=== PATIENT | female | born 1940 | race Caucasian/White ===

== ENCOUNTER → 2016-06-01 | Outpatient (CLI) | payer MEDICARE, OTHER ==
--- NOTE | 2016-06-06 09:21 | NM ---
EXAMINATION TYPE: NM DatScan Brain SPECT DATE OF EXAM: 06/01/2016 4:41 PM COMPARISON: Correlation CT 04/26/2016 HISTORY: 76-year-old female abnormal involuntary movements and tremors. TECHNIQUE: 10 drops of Lugol's solution was administered 1 hour prior to injection as a thyroid bloc sunil agent. After the administration of 3.98 mCi I-123 Ioflupane DaTscan. Images obtained 3 hours p ost injection. SPECT images of the brain were acquired with axial and coronal reconstructions. FINDINGS: The axial SPECT images demonstrate slight increase in background activity. Accounting for head tilt, there is a "weak comma"-shaped appearance to the striatum on the right. IMPRESSION: Some blunting of striatal activity on the right and slight increase in the background activity may in dicate early idiopathic Parkinson's disease or Parkinsonian syndrome.
== END | disposition home or self-care (01) ==
LOC: RADNMMAIN 11:42
PROVIDERS: ATTEND Psychiatry & Neurology Neurology
DX: R25.1 Tremor, unspecified (principal); R25.9 Unspecified abnormal involuntary movements
CPT/HCPCS: 78607; A9584

== ENCOUNTER 2016-06-05 08:53 | Emergency (ER) | payer MEDICARE, OTHER ==
[2016-06-05] MEDS ORDERED: HYDROcodone/APAP 5-325MG 1 EACH TAB PO STA (09:19)
--- NOTE | 2016-06-05 09:21 | ED ---
General Adult HPI - General Chief complaint: Extremity Injury, Lower Stated complaint: Left lowerr leg pain Time Seen by Provider: 06/05/16 09:11 Source: patient, EMS, RN notes reviewed Mode of arrival: EMS Limitations: physical limitation - History of Present Illness Initial comments: Patient 76-year-old female who presents emergency room today by EMS, the chief complaint of increased pain to left lower extremity. She does admit that she was in the grocery store yesterday began feeling some "sciatic pain". States it was very sharp intense. She states that this sciatic type pain has relieved but still expressing pain to the left lower extremity. She states feels it more anteriorly. States having a difficult time ambulating due to the pain today. States tried [id number] Tylenol with no relief of the symptoms. Patient denies any injury or trauma. She states that she feels it radiating up the left leg. Patient denies any recent fever, chills, shortness of breath, chest pain, back pain, abdominal pain, nausea or vomiting, numbness or tingling , dysuria or hematuria, constipation or diarrhea, headaches or visual changes, or any other complaints. - Related Data Home Medications Medication Instructions Recorded Confirmed FLUoxetine HCL [PROzac] 20 mg PO HS 07/08/15 06/05/16 FLUoxetine HCL [PROzac] 40 mg PO QAM 07/08/15 06/05/16 ALPRAZolam [Xanax] 0.5 mg PO BID PRN 02/23/16 06/05/16 Acetaminophen Tab [Tylenol Tab] 650 mg PO Q4H PRN 06/05/16 06/05/16 Previous Rx's Medication Instructions Recorded lamoTRIgine [LaMICtal] 150 mg PO BID 30 Days 05/03/14 Cyclobenzaprine [Flexeril] 1 tab PO TID #20 tablet 06/05/16 Hydrocodone/Acetaminophen [[place] 1 each PO Q6HR PRN #20 tab 06/05/16 5-325] Allergies Allergy/AdvReac Type Severity Reaction Status Date / Time No Known Allergies Allergy Verified 06/05/16 09:14 Review of Systems ROS Statement: Those systems with pertinent positive or pertinent negative responses have been documented in the HPI. ROS Other: All systems not noted in ROS Statement are negative. Past Medical History Past Medical History: GERD/Reflux, Osteoarthritis (OA), Renal Disease Additional Past Medical History / Comment(s): diverticulosis, Gait dysfunction- uses walker History of Any Multi-Drug Resistant Organisms: None Reported Past Surgical History: Bowel Resection, Hysterectomy, Orthopedic Surgery Additional Past Surgical History / Comment(s): left kidney removed as a teen, exploratory lap in past-unsure what for.Low anterior resection for diverticulosis Past Anesthesia/Blood Transfusion Reactions: No Reported Reaction Additional Past Anesthesia/Blood Transfusion Reaction / Comment(s): had worsening psych. issues after last surgery-thought might be from anesthesia Past Psychological History: Anxiety, Bipolar, Depression, Panic Disorder Additional Psychological History / Comment(s): Pt states her psychiatric symptoms have worsened since her surgery a few months ago. Smoking Status: Former smoker Past Alcohol Use History: None Reported Additional Past Alcohol Use History / Comment(s): SMOKED FOR 60 YRS, Past Drug Use History: None Reported - Past Family History Mother Family Medical History: Cancer General Exam - General Exam Comments Initial Comments: General: The patient is awake and alert, in no distress, and does not appear acutely ill. Neck: The neck is supple, there is no tenderness or JVD. Cardiovascular: There is a regular rate and rhythm. No murmur, rub or gallop is appreciated. Respiratory: Lungs are clear to auscultation, respirations are non-labored, breath sounds are equal. No wheezes, stridor, rales, or rhonchi. Musculoskeletal: Normal appearance of the left lower chin. No obvious swelling bruising. No deformities. Shows good range of motion. No bony tenderness to the left hip, left knee, left ankle. Patient has no tenderness on palpation. Her sensations are intact pulses equal bilaterally 2+. Neurological: A&O x 3. CN II-XII intact, There are no obvious motor or sensory deficits. Coordination appears grossly intact. Speech is normal. Skin: Skin is warm and dry and no rashes or lesions are noted. Psychiatric: Normal mood and affect. Limitations: physical limitation Course Vital Signs 06/05/16 06/05/16 08:58 09:44 Temperature 97.2 F L Pulse Rate 67 66 Respiratory 20 20 Rate Blood Pressure 193/84 171/82 O2 Sat by Pulse 98 98 Oximetry Medical Decision Making - Medical Decision Making Patient reexamined at this time shows no signs of distress. Doesn't that she is feeling better after medications given here in the emergency room. X-rays reviewed are unremarkable. Ultrasound negative for any evidence of DVT. 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 Results were discussed with the patient. Patient at this time feels comfortable being discharged home. Will be given pain medication along with a muscle relaxer to go home with. Advised that it may make her drowsy. Advised follow-up the family doctor later this week for further evaluation. Patient denies return if any symptoms increase or worsen. Disposition Clinical Impression: Lumbar radiculopathy, acute Disposition: HOME SELF-CARE Condition: Good Instructions: Lumbar Radiculopathy (ED) Additional Instructions: Please use medication as discussed. Please be aware that medications may make you drowsy. Please follow-up with family doctor in the next 2 days of symptoms have not improved. Please return to emergency room if the symptoms increase or worsen or for any other concerns. Prescriptions: Cyclobenzaprine [Flexeril] 1 tab PO TID #20 tablet Hydrocodone/Acetaminophen [[place] 5-325] 1 each PO Q6HR PRN #20 tab PRN Reason: Pain Time of Disposition: 13:09
[2016-06-05] MEDS ORDERED: MORPHINE SULFATE 4 MG/ML SYRINGE IM STA (10:27)
--- NOTE | 2016-06-05 11:24 | US ---
EXAMINATION TYPE: US venous doppler duplex LE LT DATE OF EXAM: 06/05/2016 10:52 AM COMPARISON: In pacs CLINICAL HISTORY: 76-year-old female Left leg pain x 2 days TECHNIQUE: Duplex Doppler ultrasound examination of the left lower extremity. FINDINGS: SIDE PERFORMED: Left VESSELS IMAGED: External Iliac Vein (EIV) Common Femoral Vein Deep Femoral Vein Greater Saphenous Vein * Femoral Vein Popliteal Vein Small Saphenous Vein * Proximal Calf Veins (* superficial vessels) Left Leg: Appears negative for DVT. There is a 5.0 x 2.1 x 4.1cm cystic area in the popliteal fossa medial to vessels: probable Martin's cyst. IMPRESSION: 1. No evidence for DVT in the left lower extremity imaged from the groin to the upper calf. 2. Moderate-sized, 5 cm Martin's cyst.
--- NOTE | 2016-06-05 11:45 | XR ---
EXAMINATION TYPE: XR lumbar spine 2 or 3V DATE OF EXAM: 06/05/2016 11:40 AM COMPARISON: 01/30/2015 HISTORY: 76-year-old female with left leg pain, several falls over the last 3 weeks. TECHNIQUE: 3 views FINDINGS: There is dextroconvex curvature of the lumbar spine. There is slight irregularity of an arcuate line along the left sacral alar. There is hypertrophic facet arthropathy mid to lower lumbar spine with a grade 1 anterolisthesis at L4-L5 and mild disc interspace narrowing in the lower lumbar spine at L4-L 5 and L5-S1. Vertebral body heights are preserved. Osteopenia. IMPRESSION: 1. Possible left sacral alar insufficiency fracture. Correlate with patient's symptoms. 2. No vertebral compression collapse. 3. Facet arthropathy mid to lower lumbar spine with similar grade 1 anterolisthesis at L4-L5. 4. Mild degenerative disc disease lower lumbar spine. 5. Dextroconvex curvature could be positional or secondary to muscle spasm.
[2016-06-05] MEDS ORDERED: DIAZEPAM 2 MG TAB PO STA (11:56)
[2016-06-05 13:20] VITALS: BP 167/84; PULSE 93; RESP 16; TEMP 97.8
== END 2016-06-05 13:18 | disposition home or self-care (01) ==
LOC: EC 08:53
DX: M54.16 Radiculopathy, lumbar region (principal); Z79.899 Other long term (current) drug therapy; F41.9 Anxiety disorder, unspecified; F31.9 Bipolar disorder, unspecified; F41.0 Panic disorder [episodic paroxysmal anxiety]; Z87.891 Personal history of nicotine dependence; M71.22 Synovial cyst of popliteal space [Baker], left knee
CPT/HCPCS: 72100; 93971; 96372; 99284; J2270

== ENCOUNTER 2016-06-07 17:14 | Emergency (ER) | payer MEDICARE, OTHER ==
[2016-06-07 17:30] VITALS: RESP 16; TEMP 97.7
[2016-06-07] MEDS ORDERED: LORazepam 2 MG/ML SYRINGE IV STA (17:47)
[2016-06-07] MEDS ORDERED: KETOROLAC 30 MG/ML 1 ML VIAL IVP STA ×2 (17:47→20:17)
--- NOTE | 2016-06-07 18:01 | ED ---
Extremity Problem HPI - General Chief complaint: Extremity Problem,Nontraumatic Stated complaint: left leg pain Time Seen by Provider: 06/07/16 17:35 Source: patient, RN notes reviewed, old records reviewed Mode of arrival: EMS Limitations: no limitations - History of Present Illness Initial comments: This is a 76-year-old female who presents with complaints of pain to her left leg radiate from her ankle up to her thigh. She states also restaurant to her back. She states she was seen here 2 days ago for the same her pain medication not helping. She denies any nausea vomiting fevers chills sweats dysuria hematuria or urinary or fecal incontinence. She does states she did fall twice last 2 weeks her last fall being about a week ago. She was thought to have sciatica/ lumbar radiculopathy when she was in here 2 days ago. Nothing has changed no new trauma is reported. MD Complaint: extremity pain - Related Data Home Medications Medication Instructions Recorded Confirmed FLUoxetine HCL [PROzac] 20 mg PO HS 07/08/15 06/07/16 FLUoxetine HCL [PROzac] 40 mg PO QAM 07/08/15 06/07/16 ALPRAZolam [Xanax] 0.5 mg PO BID PRN 02/23/16 06/07/16 Acetaminophen Tab [Tylenol Tab] 650 mg PO Q4H PRN 06/05/16 06/07/16 Hydrocodone/Acetaminophen [[place] 1 tab PO Q6HR PRN 06/07/16 06/07/16 5-325] Previous Rx's Medication Instructions Recorded lamoTRIgine [LaMICtal] 150 mg PO BID 30 Days 05/03/14 Cyclobenzaprine [Flexeril] 1 tab PO TID #20 tablet 06/05/16 Cephalexin [Keflex] 500 mg PO Q6HR #40 cap 06/07/16 predniSONE 20 mg PO BID #10 tab 06/07/16 Allergies Allergy/AdvReac Type Severity Reaction Status Date / Time No Known Allergies Allergy Verified 06/07/16 17:36 Review of Systems ROS Statement: Those systems with pertinent positive or pertinent negative responses have been documented in the HPI. ROS Other: All systems not noted in ROS Statement are negative. Past Medical History Past Medical History: GERD/Reflux, Osteoarthritis (OA), Renal Disease Additional Past Medical History / Comment(s): diverticulosis, Gait dysfunction- uses walker, rib fx. History of Any Multi-Drug Resistant Organisms: None Reported Past Surgical History: Bowel Resection, Hysterectomy, Orthopedic Surgery Additional Past Surgical History / Comment(s): left kidney removed as a teen, exploratory lap in past-unsure what for.Low anterior resection for diverticulosis Past Anesthesia/Blood Transfusion Reactions: No Reported Reaction Additional Past Anesthesia/Blood Transfusion Reaction / Comment(s): had worsening psych. issues after last surgery-thought might be from anesthesia Past Psychological History: Anxiety, Bipolar, Depression, Panic Disorder Additional Psychological History / Comment(s): Pt states her psychiatric symptoms have worsened since her surgery a few months ago. Smoking Status: Former smoker Past Alcohol Use History: None Reported Additional Past Alcohol Use History / Comment(s): SMOKED FOR 60 YRS, Past Drug Use History: None Reported - Past Family History Mother Family Medical History: Cancer General Exam - General Exam Comments Initial Comments: This is a well-developed well-nourished awake alert oriented 3 female Limitations: no limitations General appearance: alert, in no apparent distress Head exam: Present: atraumatic, normocephalic, normal inspection Eye exam: Present: normal appearance, PERRL, EOMI. Absent: scleral icterus, conjunctival injection, periorbital swelling ENT exam: Present: normal exam, mucous membranes moist Neck exam: Present: normal inspection. Absent: tenderness, meningismus, lymphadenopathy Respiratory exam: Present: normal lung sounds bilaterally. Absent: respiratory distress, wheezes, rales, rhonchi, stridor Cardiovascular Exam: Present: regular rate, normal rhythm, normal heart sounds. Absent: systolic murmur, diastolic murmur, rubs, gallop, clicks GI/Abdominal exam: Present: soft, normal bowel sounds. Absent: distended, tenderness, guarding, rebound, rigid Extremities exam: Present: normal inspection, full ROM, tenderness (Tennis palpation of the left gluteal fold and buttock over the sciatica leg.), normal capillary refill. Absent: pedal edema, joint swelling, calf tenderness Back exam: Present: normal inspection. Absent: tenderness, CVA tenderness (R), CVA tenderness (L), muscle spasm, paraspinal tenderness, vertebral tenderness Neurological exam: Present: alert, oriented X3, CN II-XII intact Psychiatric exam: Present: normal affect, normal mood Skin exam: Present: warm, dry, intact, normal color. Absent: rash Course Vital Signs 06/07/16 06/07/16 17:25 19:58 Temperature 97.7 F Pulse Rate 67 60 Respiratory 16 16 Rate Blood Pressure 143/61 136/63 O2 Sat by Pulse 96 97 Oximetry Medical Decision Making - Medical Decision Making Patient was reevaluated several occasions she got Dilaudid pain relief. She was given IV fluids IV antibiotics she would like to go home options were available she chose to go home she'll be discharged on oral antibiotics pain medication follow-up with her doctor return when necessary - Lab Data Result diagrams: 06/07/16 19:30 06/07/16 19:30 Lab Results 06/07/16 06/07/16 06/07/16 Range/Units 19:09 19:30 19:30 WBC 7.8 (3.8-10.6) k/uL RBC 4.63 (3.80-5.40) m/uL Hgb 13.0 (11.4-16.0) gm/dL Hct 40.7 (34.0-46.0) % MCV 87.9 (80.0-100.0) fL MCH 28.0 (25.0-35.0) pg MCHC 31.8 (31.0-37.0) g/dL RDW 17.2 H (11.5-15.5) % Plt Count 245 (150-450) k/uL Neutrophils % 77 % Lymphocytes % 14 % Monocytes % 6 % Eosinophils % 2 % Basophils % 0 % Neutrophils # 6.0 (1.3-7.7) k/uL Lymphocytes # 1.1 (1.0-4.8) k/uL Monocytes # 0.4 (0-1.0) k/uL Eosinophils # 0.2 (0-0.7) k/uL Basophils # 0.0 (0-0.2) k/uL Anisocytosis Slight Sodium 139 (137-145) mmol/L Potassium 4.1 (3.5-5.1) mmol/L Chloride 102 (98-107) mmol/L Carbon Dioxide 24 (22-30) mmol/L Anion Gap 13 mmol/L BUN 15 (7-17) mg/dL Creatinine 0.90 (0.52-1.04) mg/dL Est GFR (MDRD) Af Amer >60 (>60 ml/min/1.73 sqM) Est GFR (MDRD) Non-Af >60 (>60 ml/min/1.73 sqM) Glucose 104 H (74-99) mg/dL Calcium 9.4 (8.4-10.2) mg/dL Total Bilirubin 0.5 (0.2-1.3) mg/dL AST 46 H (14-36) U/L ALT 76 H (9-52) U/L Alkaline Phosphatase 138 H (38-126) U/L Total Protein 6.3 (6.3-8.2) g/dL Albumin 3.9 (3.5-5.0) g/dL Urine Color Yellow Urine Appearance Cloudy H (Clear) Urine pH 6.5 (5.0-8.0) Ur Specific [place] 1.010 (1.001-1.035) Urine Protein Negative (Negative) Urine Glucose (UA) Negative (Negative) Urine Ketones Negative (Negative) Urine Blood Trace H (Negative) Urine Nitrate Positive H (Negative) Urine Bilirubin Negative (Negative) Urine Urobilinogen <2.0 (<2.0) mg/dL Ur Leukocyte Esterase Large H (Negative) Urine RBC 38 H (0-5) /hpf Urine WBC >182 H (0-5) /hpf Urine WBC Clumps Many H (None) /hpf Ur Squamous Epith Cells 8 H (0-4) /hpf Amorphous Sediment Few H (None) /hpf Urine Bacteria Many H (None) /hpf Urine Mucus Few H (None) /hpf - Radiology Data Radiology results: report reviewed (Imaging was reviewed no acute findings are seen.), image reviewed Disposition Clinical Impression: Urinary tract infection, Lumbar radiculopathy, acute, Sciatica Disposition: HOME SELF-CARE Condition: Good Instructions: Urinary Tract Infection in Women (ED), Sciatica (ED), Lumbar Radiculopathy (ED) Prescriptions: Cephalexin [Keflex] 500 mg PO Q6HR #40 cap predniSONE 20 mg PO BID #10 tab
[2016-06-07 19:23] LABS: Amorphous Sediment,Urine Few /hpf; Appearance,Urine Cloudy (Clear); Bacteria,Urine Many /hpf; Bilirubin,Urine Negative (Negative); Glucose,Urine (UA) Negative (Negative); Ketones,Urine Negative (Negative); Leukocyte Esterase,Urine Large (Negative); Mucus,Urine Few /hpf; Nitrite,Urine Positive (Negative); PH, Urine 6.5 (5.0-8.0); Particle Count 31656; Protein,Urine Negative (Negative); RBC,Urine 38 /hpf (0-5); Squamous Epithelial Cell,Urine 8 /hpf (0-4); UA Billing (MACRO vs. MICRO) MICRO; Urobilinogen,Urine <2.0 mg/dL (<2.0); WBC,Urine >182 /hpf (0-5)
--- NOTE | 2016-06-07 19:35 | XR ---
EXAMINATION TYPE: XR lumbosacral spine min 4V DATE OF EXAM: 06/07/2016 7:21 PM COMPARISON: 06/05/2016 HISTORY: Low back pain TECHNIQUE: 5 views FINDINGS: Vertebrae are fairly normal alignment. There is a few millimeter anterior subluxation of L4 in relation L5. Posterior elements are intact. Sacroiliac joints appear normal. I see no compression fracture. IMPRESSION: There is a minimal degenerative first-degree L4-5 spondylolisthesis. No acute bony abnorm ality. No change compared to yesterday.
[2016-06-07 19:53] LABS: Anisocytosis Slight; Basophils % (A) 0 %; CH 28.3; CHCM 32.3; Eosinophils # (A) 0.2 k/uL (0-0.7); Eosinophils % (A) 2 %; HCT 40.7 % (34.0-46.0); HDW 2.41; Luc % (Auto) 1; Lymphocytes # (A) 1.1 k/uL (1.0-4.8); Lymphocytes % (A) 14 %; MCHC 31.8 g/dL (31.0-37.0); MCV 87.9 fL (80.0-100.0); Mean Platelet Volume 7.4; Monocytes # (A) 0.4 k/uL (0-1.0); Monocytes % (A) 6 %; Neutrophils % (A) 77 %; RBC 4.63 m/uL (3.80-5.40); RDW 17.2 % (11.5-15.5); WBC 7.8 k/uL (3.8-10.6)
[2016-06-07 19:59] VITALS: BP 136/63; PULSE 60
[2016-06-07 20:02] LABS: ALT 76 U/L (9-52); AST 46 U/L (14-36); Alkaline Phosphatase 138 U/L (38-126); Anion Gap 13 mmol/L; Blood Urea Nitrogen 15 mg/dL (7-17); Calcium 9.4 mg/dL (8.4-10.2); Carbon Dioxide 24 mmol/L (22-30); Chloride 102 mmol/L (98-107); Glucose 104 mg/dL (74-99); Non-African American GFR(MDRD) >60 (>60 ml/min/1.73 sqM); Potassium 4.1 mmol/L (3.5-5.1); Sodium 139 mmol/L (137-145); Total Bilirubin 0.5 mg/dL (0.2-1.3); Total Protein 6.3 g/dL (6.3-8.2)
[2016-06-07] MEDS ORDERED: predniSONE 50 MG TAB PO STA (21:43)
== END 2016-06-07 21:56 | disposition home or self-care (01) ==
LOC: EC 17:14
DX: M54.16 Radiculopathy, lumbar region (principal); M54.30 Sciatica, unspecified side; N39.0 Urinary tract infection, site not specified; M43.16 Spondylolisthesis, lumbar region; M19.90 Unspecified osteoarthritis, unspecified site; F31.9 Bipolar disorder, unspecified; F41.9 Anxiety disorder, unspecified; F41.0 Panic disorder [episodic paroxysmal anxiety]; Z87.891 Personal history of nicotine dependence; Z79.899 Other long term (current) drug therapy
CPT/HCPCS: 36415; 80053; 85025; 81001; 87040; 87086; 72110; 99284; 96365; 96375 ×2; 96376; J2060; J0696; J1885; J7512; 87077; 87186

== ENCOUNTER 2016-08-14 15:14 | Emergency (ER) | payer MEDICARE, OTHER ==
[2016-08-14 15:47] VITALS: BP 102/66; PULSE 82; RESP 18; TEMP 98.8
[2016-08-14] MEDS ORDERED: diphenhydrAMINE 50 MG/ML 1 ML VIAL IM STA (16:11)
--- NOTE | 2016-08-14 16:17 | ED ---
Skin/Abscess/FB HPI - General Chief complaint: Skin/Abscess/Foreign Body Stated complaint: Rash Time Seen by Provider: 08/14/16 15:49 Source: patient, RN notes reviewed Mode of arrival: ambulatory - History of Present Illness Initial comments: Patient is a 76-year-old female with chief complaint of pruritic rash over her wrist, arms and legs for 3 weeks. Patient reports that she has been treated for a rash similar to this a few months ago and was sinus with scabies. Patient reports that it did clear up at that time. Patient reports that she cannot stop itching. She states that she does have a neurologist follow-up for her chronic tremors. Patient states that that is a 3 weeks. Patient denies any fever or chills. She denies any other contacts with a rash. - Related Data Home Medications Medication Instructions Recorded Confirmed FLUoxetine HCL [PROzac] 20 mg PO HS 07/08/15 06/07/16 FLUoxetine HCL [PROzac] 40 mg PO QAM 07/08/15 06/07/16 ALPRAZolam [Xanax] 0.5 mg PO BID PRN 02/23/16 06/07/16 Acetaminophen Tab [Tylenol Tab] 650 mg PO Q4H PRN 06/05/16 06/07/16 Hydrocodone/Acetaminophen [[place] 1 tab PO Q6HR PRN 06/07/16 06/07/16 5-325] Previous Rx's Medication Instructions Recorded lamoTRIgine [LaMICtal] 150 mg PO BID 30 Days 05/03/14 Cyclobenzaprine [Flexeril] 1 tab PO TID #20 tablet 06/05/16 Cephalexin [Keflex] 500 mg PO Q6HR #40 cap 06/07/16 predniSONE 20 mg PO BID #10 tab 06/07/16 Permethrin 5% Cream [Elimite] 1 applic TOPICAL ONCE #60 cream..g. 08/14/16 hydrOXYzine HCL [Atarax] 25 mg PO TID PRN #15 tab 08/14/16 methylPREDNISolone Dose Pack 4 mg PO DIRECTED #21 package 08/14/16 [Medrol Dose Pack] Allergies Allergy/AdvReac Type Severity Reaction Status Date / Time No Known Allergies Allergy Verified 08/14/16 15:47 Review of Systems ROS Statement: Those systems with pertinent positive or pertinent negative responses have been documented in the HPI. ROS Other: All systems not noted in ROS Statement are negative. Past Medical History Past Medical History: GERD/Reflux, Osteoarthritis (OA), Renal Disease Additional Past Medical History / Comment(s): diverticulosis, Gait dysfunction- uses walker, rib fx. History of Any Multi-Drug Resistant Organisms: None Reported Past Surgical History: Bowel Resection, Hysterectomy, Orthopedic Surgery Additional Past Surgical History / Comment(s): left kidney removed as a teen, exploratory lap in past-unsure what for.Low anterior resection for diverticulosis Past Anesthesia/Blood Transfusion Reactions: No Reported Reaction Additional Past Anesthesia/Blood Transfusion Reaction / Comment(s): had worsening psych. issues after last surgery-thought might be from anesthesia Past Psychological History: Anxiety, Bipolar, Depression, Panic Disorder Additional Psychological History / Comment(s): Pt states her psychiatric symptoms have worsened since her surgery a few months ago. Smoking Status: Former smoker Past Alcohol Use History: None Reported Additional Past Alcohol Use History / Comment(s): SMOKED FOR 60 YRS, Past Drug Use History: None Reported - Past Family History Mother Family Medical History: Cancer General Exam General appearance: alert, in no apparent distress Head exam: Present: atraumatic, normocephalic, normal inspection Eye exam: Present: normal appearance, PERRL, EOMI. Absent: scleral icterus, conjunctival injection, periorbital swelling ENT exam: Present: normal exam, normal oropharynx, mucous membranes moist Neck exam: Present: normal inspection. Absent: tenderness, meningismus, lymphadenopathy Respiratory exam: Present: normal lung sounds bilaterally. Absent: respiratory distress, wheezes, rales, rhonchi, stridor Cardiovascular Exam: Present: regular rate, normal rhythm, normal heart sounds. Absent: systolic murmur, diastolic murmur, rubs, gallop, clicks GI/Abdominal exam: Present: soft, normal bowel sounds. Absent: distended, tenderness, guarding, rebound, rigid Extremities exam: Present: normal inspection, full ROM, normal capillary refill. Absent: tenderness, pedal edema, joint swelling, calf tenderness Back exam: Present: normal inspection Neurological exam: Present: alert, oriented X3, CN II-XII intact Psychiatric exam: Present: normal affect, normal mood Skin exam: Present: warm, dry, intact, normal color, rash (Pruritic rash over wrist, arms and ankles. Rash is full of multiple excoriations. Difficult to discern if there is truly scabies or just sick contact dermatitis reaction. Patient denies any history of new contacts to cause a dermatitis.) Course Vital Signs 08/14/16 15:43 Temperature 98.8 F Pulse Rate 82 Respiratory 18 Rate Blood Pressure 102/66 O2 Sat by Pulse 97 Oximetry Medical Decision Making - Medical Decision Making Patient is a 76-year-old female with a chief complaint of pruritic rash over arms, wrists and ankles for approximately 3 weeks. She started taking any Benadryl. Patient reports that she's been using calamine lotion and it is not helping. Patient has multiple excoriations over her wrist and arms. There could be possible scabies-like rash underneath excoriations difficult to discern at this time. Patient will be treated for scabies as well as given Atarax and steroids for the contact dermatitis and itching. Patient advised to continue to take Benadryl every 8 hours for the itching. Patient agrees the treatment plan will comply. Return parameters were discussed. Disposition Clinical Impression: Pruritic rash Disposition: HOME SELF-CARE Condition: Good Instructions: Acute Rash (ED), Dermatitis (ED) Additional Instructions: Patient advised to take the steroid pack and Atarax as directed. Patient also advised to apply permethrin cream over body for bed and to sleep and then rinse off in the morning. Repeat treatment in one week. This be treating for possible scabies. Patient is to follow-up with primary care provider as well as a control clerk auditing. Avoid scratching is much as possible. Continue to take Benadryl. Prescriptions: Permethrin 5% Cream [Elimite] 1 applic TOPICAL ONCE #60 cream..g. hydrOXYzine HCL [Atarax] 25 mg PO TID PRN #15 tab PRN Reason: Itching methylPREDNISolone Dose Pack [Medrol Dose Pack] 4 mg PO DIRECTED #21 package Referrals: Helio Mott MD [Primary Care Provider] - 1-2 days Time of Disposition: 16:16
== END 2016-08-14 16:35 | disposition home or self-care (01) ==
LOC: EC 15:14
DX: L29.9 Pruritus, unspecified (principal); L25.9 Unspecified contact dermatitis, unspecified cause; F41.0 Panic disorder [episodic paroxysmal anxiety]; F31.9 Bipolar disorder, unspecified; Z87.891 Personal history of nicotine dependence; Z79.899 Other long term (current) drug therapy
CPT/HCPCS: 99282; 96372; J1200

== ENCOUNTER 2016-08-25 13:00 | Emergency (ER) | payer MEDICARE, OTHER ==
--- NOTE | 2016-08-25 14:54 | ED ---
General Adult HPI - General Chief complaint: Fall Stated complaint: Fall Time Seen by Provider: 08/25/16 14:39 Source: patient, RN notes reviewed, old records reviewed Mode of arrival: EMS Limitations: no limitations - History of Present Illness Initial comments: This is a 76-year-old female ER for evaluation of fall. Patient fall from standing trip and fall from standing mechanical fall at home. Not on blood thinners. Patient does have history of falls, complaining of head pain. Pain to left scalp. No loss of consciousness, patient was able to relate after fall. Patient's friend by EMS for evaluation. Patient also complaining of mild neck pain. Worse when she turns her head a left and right - Related Data Home Medications Medication Instructions Recorded Confirmed FLUoxetine HCL [PROzac] 20 mg PO HS 07/08/15 08/25/16 FLUoxetine HCL [PROzac] 40 mg PO QAM 07/08/15 08/25/16 ALPRAZolam [Xanax] 0.5 mg PO BID PRN 02/23/16 08/25/16 Previous Rx's Medication Instructions Recorded lamoTRIgine [LaMICtal] 150 mg PO BID 30 Days 05/03/14 Allergies Allergy/AdvReac Type Severity Reaction Status Date / Time No Known Allergies Allergy Verified 08/25/16 14:57 Review of Systems ROS Statement: Those systems with pertinent positive or pertinent negative responses have been documented in the HPI. ROS Other: All systems not noted in ROS Statement are negative. Past Medical History Past Medical History: GERD/Reflux, Osteoarthritis (OA), Renal Disease Additional Past Medical History / Comment(s): diverticulosis, Gait dysfunction- uses walker, rib fx. History of Any Multi-Drug Resistant Organisms: None Reported Past Surgical History: Bowel Resection, Hysterectomy, Orthopedic Surgery Additional Past Surgical History / Comment(s): left kidney removed as a teen, exploratory lap in past-unsure what for.Low anterior resection for diverticulosis Past Anesthesia/Blood Transfusion Reactions: No Reported Reaction Additional Past Anesthesia/Blood Transfusion Reaction / Comment(s): had worsening psych. issues after last surgery-thought might be from anesthesia Past Psychological History: Anxiety, Bipolar, Depression, Panic Disorder Additional Psychological History / Comment(s): Pt states her psychiatric symptoms have worsened since her surgery a few months ago. Smoking Status: Former smoker Past Alcohol Use History: None Reported Additional Past Alcohol Use History / Comment(s): SMOKED FOR 60 YRS, Past Drug Use History: None Reported - Past Family History Mother Family Medical History: Cancer General Exam Limitations: no limitations General appearance: alert, in no apparent distress Head exam: Present: atraumatic, normocephalic, normal inspection Eye exam: Present: normal appearance, PERRL, EOMI. Absent: scleral icterus, conjunctival injection, periorbital swelling ENT exam: Present: normal exam, mucous membranes moist Neck exam: Present: normal inspection. Absent: tenderness, meningismus, lymphadenopathy Respiratory exam: Present: normal lung sounds bilaterally. Absent: respiratory distress, wheezes, rales, rhonchi, stridor Cardiovascular Exam: Present: regular rate, normal rhythm, normal heart sounds. Absent: systolic murmur, diastolic murmur, rubs, gallop, clicks GI/Abdominal exam: Present: soft, normal bowel sounds. Absent: distended, tenderness, guarding, rebound, rigid Extremities exam: Present: normal inspection, full ROM, normal capillary refill. Absent: tenderness, pedal edema, joint swelling, calf tenderness Back exam: Present: normal inspection Neurological exam: Present: alert, oriented X3, CN II-XII intact Psychiatric exam: Present: normal affect, normal mood Skin exam: Present: warm, dry, intact, normal color. Absent: rash Course Vital Signs 08/25/16 13:26 Temperature 98.1 F Pulse Rate 85 Respiratory 18 Rate Blood Pressure 133/67 O2 Sat by Pulse 98 Oximetry Medical Decision Making - Medical Decision Making [employer] female year status post fall trip and fall with head injury. CT brain and C-spine are negative. Patient can be discharged home patient is able to without difficulty, no leg hip or back pain - Radiology Data Radiology results: report reviewed (CT brain C-spine negative for traumatic injury), image reviewed Disposition Clinical Impression: Fall, Head injury, Scalp hematoma Disposition: HOME SELF-CARE Condition: Good Instructions: Fall Prevention for Older Adults (ED), Head Injury (ED) Referrals: Helio Mott MD [Primary Care Provider] - 1-2 days
--- NOTE | 2016-08-25 15:37 | CT ---
EXAMINATION TYPE: CT brain cspine wo con DATE OF EXAM: 08/25/2016 3:22 PM COMPARISON: 04/26/2016 HISTORY: Fall today with posterior injury. CT DLP: 1615 mGycm, Automated exposure control for dose reduction was used. CONTRAST: None CT of the brain is performed utilizing 3 mm thick sections through the posterior fossa and 3 mm thick sections through the remaining calvarium. Study is performed within 24 hours of arrival to the hospital. No abnormal hyperdensity is present to suggest an acute intracranial hemorrhage. No mass lesion is evident. No acute infarcts are evident. Subtle periventricular white matter changes are present. Ventricles and sulci are appropriate for the patient age. Paranasal sinuses and mastoid air cells within the [id number] are clear. No acute fractures are evident. IMPRESSIONS: 1. Minimal chronic appearing white matter ischemic changes. 2. No acute intracranial process. CT cervical spine. COMPARISON: None CT of the cervical spine is performed in the axial plane at 2 mm thick sections. Reconstructed image s in the coronal, and sagittal plane are reviewed on the computer. No acute fractures are evident. There is straightening of the cervical spine. Minimal grade 1 spondylolisthesis of C5 posterior relat ion to C4 and C6 may be present. There is loss of disc height C4-5 C5-6 C6-7. Anterior vertebral body spurring is present before through C7. Vertebral body heights are preserved. No spinal canal stenosis is evident. Facet hypertrophy is present C2-3 on the right with mild foraminal narrowing. Uncovertebral joint hyp ertrophy and facet hypertrophy at C3-4 mild bilateral foraminal narrowing. Uncovertebral joint hypert rophy is present C4-5 with mild right foraminal narrowing. Endplate changes and uncovertebral joint h ypertrophy have anterior thecal sac compression and foraminal narrowing to moderate degree at C5-6. E ndplate changes are present C6-7 with mild anterior thecal sac compression. IMPRESSIONS: 1. Degenerative changes within the cervical spine. No acute osseous abnormality is evident.
[2016-08-25] MEDS ORDERED: HYDROcodone/APAP 5-325MG 1 EACH TAB PO STA (16:11)
[2016-08-25 16:15] VITALS: BP 179/77; PULSE 71; RESP 16; TEMP 96.9
== END 2016-08-25 16:21 | disposition home or self-care (01) ==
LOC: EC 13:00
DX: S00.03XA Contusion of scalp, initial encounter (principal); M54.2 Cervicalgia; F32.9 Major depressive disorder, single episode, unspecified; Z87.891 Personal history of nicotine dependence; Z79.899 Other long term (current) drug therapy; W01.0XXA Fall on same level from slipping, tripping and stumbling without subsequent striking against object, initial encounter
CPT/HCPCS: 70450; 72125; 99284

== ENCOUNTER → 2017-07-13 | Outpatient (CLI) | payer MEDICARE, OTHER ==
[2017-07-13 10:01] LABS: HCT 40.4 % (34.0-46.0); HGB 13.6 gm/dL (11.4-16.0); MCH 29.7 pg (25.0-35.0); MCHC 33.6 g/dL (31.0-37.0); MCV 88.3 fL (80.0-100.0); Mean Platelet Volume 6.9; Platelet Count 249 k/uL (150-450); RBC 4.58 m/uL (3.80-5.40); RDW 13.2 % (11.5-15.5); WBC 5.2 k/uL (3.8-10.6)
[2017-07-13 10:14] LABS: Partial Thromboplastin Time 22.2 sec (22.0-30.0); Prothrombin Time 9.8 sec (9.0-12.0)
[2017-07-13 10:18] LABS: Albumin 4.2 g/dL (3.5-5.0); Calcium 9.4 mg/dL (8.4-10.2); Potassium 5.1 mmol/L (3.5-5.1); Total Bilirubin 0.5 mg/dL (0.2-1.3); Total Protein 6.5 g/dL (6.3-8.2)
[2017-07-13 10:25] LABS: Appearance,Urine Cloudy (Clear); Bacteria,Urine Few /hpf; Bilirubin,Urine Negative (Negative); Blood,Urine Trace (Negative); Color,Urine Yellow; Glucose,Urine (UA) Negative (Negative); Ketones,Urine Negative (Negative); Leukocyte Esterase,Urine Large (Negative); Mucus,Urine Rare /hpf; Nitrite,Urine Negative (Negative); PH, Urine 5.5 (5.0-8.0); Protein,Urine Trace (Negative); RBC,Urine 8 /hpf (0-5); Specific Gravity,Urine 1.017 (1.001-1.035); Squamous Epithelial Cell,Urine 1 /hpf (0-4); Urobilinogen,Urine <2.0 mg/dL (<2.0); WBC,Urine >182 /hpf (0-5)
== END ==
LOC: LABPAT 09:07
PROVIDERS: ATTEND Orthopaedic Surgery
DX: Z01.818 Encounter for other preprocedural examination (principal); Z01.812 Encounter for preprocedural laboratory examination; M16.11 Unilateral primary osteoarthritis, right hip; Z79.01 Long term (current) use of anticoagulants
CPT/HCPCS: 80053; 81001; 85027; 85610; 85730; 87070; 93005

== ENCOUNTER 2017-09-04 06:52 | Emergency (ER) | payer MEDICARE, OTHER ==
[2017-09-04 07:03] VITALS: RESP 18
[2017-09-04] MEDS ORDERED: MORPHINE SULFATE 4 MG/ML SYRINGE IM STA (07:29)
--- NOTE | 2017-09-04 07:40 | XR ---
EXAMINATION TYPE: XR wrist complete RT DATE OF EXAM: 09/04/2017 CLINICAL HISTORY: Fall injury with pain and swelling. TECHNIQUE: Frontal, lateral , scaphoid, and oblique images of the right wrist are obtained. COMPARISON: None FINDINGS: Osseous structures are demineralized. There is no acute fracture/dislocation evident in th e right wrist. There is joint space loss with sclerosis and subchondral cystic change at distal scaph oid articulation with trapezium. There is moderate joint space loss with marginal osteophytes at base of first metacarpal. Mild diffuse subcutaneous edema is seen. IMPRESSION: There is no acute fracture or dislocation in the right wrist.
--- NOTE | 2017-09-04 08:25 | XR ---
EXAMINATION TYPE: XR forearm RT DATE OF EXAM: 09/04/2017 CLINICAL HISTORY: Fall injury with pain TECHNIQUE: Two views of the right forearm are obtained. COMPARISON: Same day right wrist x-ray.. FINDINGS: Osseous structures are demineralized which is noted to lower radiographic sensitivity for e valuation of fine anatomic detail. There is acute minimally displaced spiral type fracture through di stal ulnar diaphysis seen best on frontal projection. Adjacent radius is felt intact. Visualized righ t elbow joint is within normal limits. Overlying soft tissue is unremarkable. IMPRESSION: There is better visualization of acute minimally displaced spiral type fracture through distal ulnar diaphysis. (Initial encounter closed type post traumatic fracture)
--- NOTE | 2017-09-04 08:34 | ED ---
General Adult HPI - General Chief complaint: Fall Stated complaint: Fall 1 week ago, wrist injury Time Seen by Provider: 09/04/17 07:00 Source: patient, RN notes reviewed Mode of arrival: ambulatory Limitations: no limitations - History of Present Illness Initial comments: This is a 77-year-old female who states she fell about a week ago and since that time her right forearm is been painful and become more more swollen so she decided finally to come in to have it checked out. Patient states she tripped over a curb. Patient did hit her face but did not lose consciousness does not have any headache does not complain any pain around her eye and does not have any neck pain. Patient's forearm is swollen she states and is very tender to touch in the distal aspect. - Related Data Home Medications Medication Instructions Recorded Confirmed FLUoxetine HCL [PROzac] 20 mg PO HS 07/08/15 09/04/17 ALPRAZolam [Xanax] 0.5 mg PO TID PRN 02/23/16 09/04/17 ARIPiprazole [Abilify] 2 mg PO HS 07/17/17 09/04/17 Acetaminophen [Tylenol] 500 mg PO Q4-6H PRN 07/17/17 09/04/17 FLUoxetine HCL [PROzac] 40 mg PO QAM 09/04/17 09/04/17 Previous Rx's Medication Instructions Recorded lamoTRIgine [LaMICtal] 150 mg PO BID 30 Days tablet 05/03/14 Hydrocodone/Acetaminophen [[place] 1 each PO Q4HR PRN #15 tab 09/04/17 5-325] Allergies Allergy/AdvReac Type Severity Reaction Status Date / Time No Known Allergies Allergy Verified 09/04/17 07:35 Review of Systems ROS Statement: Those systems with pertinent positive or pertinent negative responses have been documented in the HPI. ROS Other: All systems not noted in ROS Statement are negative. Past Medical History Past Medical History: GERD/Reflux, Osteoarthritis (OA), Renal Disease Additional Past Medical History / Comment(s): diverticulosis, Gait dysfunction- uses walker, rib fx., History of Any Multi-Drug Resistant Organisms: None Reported Past Surgical History: Bowel Resection, Hysterectomy, Orthopedic Surgery Additional Past Surgical History / Comment(s): left kidney removed as a teen, exploratory lap in past-unsure what for.Low anterior resection for diverticulosis, Past Anesthesia/Blood Transfusion Reactions: No Reported Reaction Additional Past Anesthesia/Blood Transfusion Reaction / Comment(s): had worsening psych. issues after last surgery-thought might be from anesthesia Past Psychological History: Anxiety, Bipolar, Depression, Panic Disorder Smoking Status: Current some day smoker Past Alcohol Use History: None Reported Past Drug Use History: None Reported - Past Family History Father Family Medical History: Cancer Mother Family Medical History: Cancer General Exam - General Exam Comments Initial Comments: GENERAL Patient is well-developed and well-nourished. Patient is in mild distress. EYES Patient's pupils are equal and round. Extraocular motion is intact SKIN Unremarkable NEURO The patient is alert and oriented 3 PYSCH Patient has normal interpersonal interactions. MUSCULOSKELETAL Patient's right forearm on the distal ulnar aspect is exquisitely tender to touch and swollen. Limitations: no limitations Course Vital Signs 09/04/17 06:57 Temperature 98.1 F Pulse Rate 70 Respiratory 18 Rate Blood Pressure 197/90 O2 Sat by Pulse 98 Oximetry Procedures - Orthopedic Splinting/Casting Injury #1 Side: right Upper Extremity Injury Location: short arm Upper Extremity Immobilizer: volar splint Disposition Clinical Impression: Ulnar fracture Disposition: HOME SELF-CARE Condition: Good Instructions: Fall Prevention for Older Adults (ED), Arm Fracture in Adults (ED ) Prescriptions: Hydrocodone/Acetaminophen [[place] 5-325] 1 each PO Q4HR PRN #15 tab PRN Reason: Pain Is patient prescribed a controlled substance at d/c from ED?: Yes When asked, does pt state using other controlled substances?: No Referrals: Helio Mott MD [Primary Care Provider] - 1-2 days Humble Garcia MD [STAFF PHYSICIAN] - 1-2 days Time of Disposition: 08:32
[2017-09-04 09:24] VITALS: BP 176/85; PULSE 68; TEMP 97.6
== END 2017-09-04 09:23 | disposition home or self-care (01) ==
LOC: EC 06:52
DX: S52.201A Unspecified fracture of shaft of right ulna, initial encounter for closed fracture (principal); F17.200 Nicotine dependence, unspecified, uncomplicated; F41.0 Panic disorder [episodic paroxysmal anxiety]; F31.9 Bipolar disorder, unspecified; F41.9 Anxiety disorder, unspecified; Z79.899 Other long term (current) drug therapy; W01.0XXA Fall on same level from slipping, tripping and stumbling without subsequent striking against object, initial encounter
CPT/HCPCS: 73090; 73110; 99283; 96372; 29125; J2270

== ENCOUNTER 2017-12-13 11:30 | Inpatient (IN) | payer MEDICARE, OTHER ==
[2017-12-13] MEDS ORDERED: SODIUM CHLORIDE 0.9% 1,000 ML IV ONE (11:37)
--- NOTE | 2017-12-13 11:57 | ED ---
Altered Mental Status HPI - General Chief Complaint: Altered Mental Status Stated Complaint: ALTERED MENTAL STATUS Time Seen by Provider: 12/13/17 11:30 Source: patient, RN notes reviewed Mode of arrival: EMS Limitations: altered mental status - History of Present Illness Initial Comments: This is a 77-year-old female who is brought in for evaluation of confusion. Patient apparently has fallen several times in the last few weeks was able amulet with her walker down to the desk at the [facility] that she lives in stated she thought she was at the hospital he wanted no other ride wasn't here for her 9:00 appointment for evaluation. Is some question whether she has been severed medication to pill bottles have multiple medications in them and she does self administer her medication which does include Xanax. No complaints of headache dizziness fevers chills nausea vomiting sweats she does know it is summer she is confused about the year she knows she is in the hospital at this time. MD Complaint: altered mental status, confusion - Related Data Home Medications Medication Instructions Recorded Confirmed FLUoxetine HCL [PROzac] 20 mg PO HS 07/08/15 12/13/17 ALPRAZolam [Xanax] 0.5 mg PO TID PRN 02/23/16 12/13/17 ARIPiprazole [Abilify] 2 mg PO HS 07/17/17 12/13/17 FLUoxetine HCL [PROzac] 40 mg PO QAM 09/04/17 12/13/17 Gabapentin [Neurontin] 100 mg PO BID 12/13/17 12/13/17 Pregabalin [Lyrica] 75 mg PO BID 12/13/17 12/13/17 Previous Rx's Medication Instructions Recorded lamoTRIgine [LaMICtal] 150 mg PO BID 30 Days tablet 05/03/14 Allergies Allergy/AdvReac Type Severity Reaction Status Date / Time No Known Allergies Allergy Verified 12/13/17 11:54 Review of Systems ROS Statement: Those systems with pertinent positive or pertinent negative responses have been documented in the HPI. ROS Other: All systems not noted in ROS Statement are negative. Past Medical History Past Medical History: GERD/Reflux, Osteoarthritis (OA), Renal Disease Additional Past Medical History / Comment(s): diverticulosis, Gait dysfunction- uses walker, rib fx., History of Any Multi-Drug Resistant Organisms: None Reported Past Surgical History: Bowel Resection, Hysterectomy, Orthopedic Surgery Additional Past Surgical History / Comment(s): left kidney removed as a teen, exploratory lap in past-unsure what for.Low anterior resection for diverticulosis, Past Anesthesia/Blood Transfusion Reactions: No Reported Reaction Additional Past Anesthesia/Blood Transfusion Reaction / Comment(s): had worsening psych. issues after last surgery-thought might be from anesthesia Past Psychological History: Anxiety, Bipolar, Depression, Panic Disorder Smoking Status: Current some day smoker Past Alcohol Use History: None Reported Past Drug Use History: None Reported - Past Family History Father Family Medical History: Cancer Mother Family Medical History: Cancer General Exam - General Exam Comments Initial Comments: This is a well-developed well-nourished awake alert patient is confused to time he does complain of occasional leg pain but no other complaints Limitations: altered mental status General appearance: alert, in no apparent distress Head exam: Present: atraumatic, normocephalic, normal inspection Eye exam: Present: normal appearance, PERRL, EOMI. Absent: scleral icterus, conjunctival injection, periorbital swelling ENT exam: Present: mucous membranes dry Neck exam: Present: normal inspection. Absent: tenderness, meningismus, lymphadenopathy Respiratory exam: Present: normal lung sounds bilaterally. Absent: respiratory distress, wheezes, rales, rhonchi, stridor Cardiovascular Exam: Present: regular rate, normal rhythm, normal heart sounds. Absent: systolic murmur, diastolic murmur, rubs, gallop, clicks GI/Abdominal exam: Present: soft, normal bowel sounds. Absent: distended, tenderness, guarding, rebound, rigid Extremities exam: Present: normal inspection, full ROM, normal capillary refill. Absent: tenderness, pedal edema, joint swelling, calf tenderness Back exam: Present: normal inspection Neurological exam: Present: alert, altered, CN II-XII intact Psychiatric exam: Present: normal affect, normal mood Skin exam: Present: warm, dry, intact, normal color. Absent: rash Course Vital Signs 12/13/17 12/13/17 12/13/17 11:37 13:20 13:34 Temperature 97.1 F L Pulse Rate 87 61 60 Respiratory 18 18 16 Rate Blood Pressure 162/72 164/62 157/54 O2 Sat by Pulse 96 100 99 Oximetry 08/09/18 08/09/18 08/09/18 14:34 15:34 16:20 Temperature Pulse Rate 64 58 L 65 Respiratory 16 16 16 Rate Blood Pressure 131/51 135/51 146/55 O2 Sat by Pulse 97 97 96 Oximetry Medical Decision Making - Medical Decision Making Patient is somnolent I did discuss the findings with Dr. Ayon. Patient has evidence of dehydration and a UTI and medication issues he will be admitted. No family members were available evaluations. - Lab Data Result diagrams: 12/13/17 11:54 12/13/17 11:54 Lab Results 12/13/17 12/13/17 12/13/17 Range/Units 11:52 11:54 11:54 WBC (3.8-10.6) k/uL RBC (3.80-5.40) m/uL Hgb (11.4-16.0) gm/dL Hct (34.0-46.0) % MCV (80.0-100.0) fL MCH (25.0-35.0) pg MCHC (31.0-37.0) g/dL RDW (11.5-15.5) % Plt Count (150-450) k/uL Neutrophils % % Lymphocytes % % Monocytes % % Eosinophils % % Basophils % % Neutrophils # (1.3-7.7) k/uL Lymphocytes # (1.0-4.8) k/uL Monocytes # (0-1.0) k/uL Eosinophils # (0-0.7) k/uL Basophils # (0-0.2) k/uL PT (9.0-12.0) sec INR (<1.2) APTT (22.0-30.0) sec Sodium 137 (137-145) mmol/L Potassium 5.1 (3.5-5.1) mmol/L Chloride 106 (98-107) mmol/L Carbon Dioxide 26 (22-30) mmol/L Anion Gap 5 mmol/L BUN 22 H (7-17) mg/dL Creatinine 0.80 (0.52-1.04) mg/dL Est GFR (CKD-EPI)AfAm 83 (>60 ml/min/1.73 sqM) Est GFR (CKD-EPI)NonAf 72 (>60 ml/min/1.73 sqM) Glucose 85 (74-99) mg/dL POC Glucose (mg/dL) 89 (75-99) mg/dL POC Glu Costing Analyst ID [place] Calcium 9.2 (8.4-10.2) mg/dL Magnesium 2.0 (1.6-2.3) mg/dL Total Bilirubin 0.6 (0.2-1.3) mg/dL AST 41 H (14-36) U/L ALT 37 (9-52) U/L Alkaline Phosphatase 134 H (38-126) U/L Ammonia <9 (<30) umol/L Total Creatine Kinase (30-135) U/L CK-MB (CK-2) (0.0-2.4) ng/mL CK-MB (CK-2) Rel Index Troponin I (0.000-0.034) ng/mL Total Protein 6.3 (6.3-8.2) g/dL Albumin 3.9 (3.5-5.0) g/dL Urine Color Urine Appearance (Clear) Urine pH (5.0-8.0) Ur Specific [place] (1.001-1.035) Urine Protein (Negative) Urine Glucose (UA) (Negative) Urine Ketones (Negative) Urine Blood (Negative) Urine Nitrite (Negative) Urine Bilirubin (Negative) Urine Urobilinogen (<2.0) mg/dL Ur Leukocyte Esterase (Negative) Urine RBC (0-5) /hpf Urine WBC (0-5) /hpf Ur Squamous Epith Cells (0-4) /hpf Urine Bacteria (None) /hpf Urine Mucus (None) /hpf Salicylates <1.0 mg/dL Urine Opiates Screen (NotDetected) Ur Oxycodone Screen (NotDetected) Urine Methadone Screen (NotDetected) Ur Propoxyphene Screen (NotDetected) Acetaminophen <10.0 ug/mL Ur Barbiturates Screen (NotDetected) U Tricyclic Antidepress (NotDetected) Ur Phencyclidine Scrn (NotDetected) Ur Amphetamines Screen (NotDetected) U Methamphetamines Scrn (NotDetected) U Benzodiazepines Scrn (NotDetected) Urine Cocaine Screen (NotDetected) U Marijuana (THC) Screen (NotDetected) Serum Alcohol <10 mg/dL 12/13/17 12/13/17 12/13/17 Range/Units 11:54 11:54 11:54 WBC 6.7 (3.8-10.6) k/uL RBC 4.33 (3.80-5.40) m/uL Hgb 12.5 (11.4-16.0) gm/dL Hct 38.7 (34.0-46.0) % MCV 89.2 (80.0-100.0) fL MCH 28.9 (25.0-35.0) pg MCHC 32.4 (31.0-37.0) g/dL RDW 13.5 (11.5-15.5) % Plt Count 258 (150-450) k/uL Neutrophils % 81 % Lymphocytes % 11 % Monocytes % 4 % Eosinophils % 2 % Basophils % 0 % Neutrophils # 5.5 (1.3-7.7) k/uL Lymphocytes # 0.8 L (1.0-4.8) k/uL Monocytes # 0.3 (0-1.0) k/uL Eosinophils # 0.1 (0-0.7) k/uL Basophils # 0.0 (0-0.2) k/uL PT 10.2 (9.0-12.0) sec INR 1.0 (<1.2) APTT 22.0 (22.0-30.0) sec Sodium (137-145) mmol/L Potassium (3.5-5.1) mmol/L Chloride (98-107) mmol/L Carbon Dioxide (22-30) mmol/L Anion Gap mmol/L BUN (7-17) mg/dL Creatinine (0.52-1.04) mg/dL Est GFR (CKD-EPI)AfAm (>60 ml/min/1.73 sqM) Est GFR (CKD-EPI)NonAf (>60 ml/min/1.73 sqM) Glucose (74-99) mg/dL POC Glucose (mg/dL) (75-99) mg/dL POC Glu Costing Analyst ID Calcium (8.4-10.2) mg/dL Magnesium (1.6-2.3) mg/dL Total Bilirubin (0.2-1.3) mg/dL AST (14-36) U/L ALT (9-52) U/L Alkaline Phosphatase (38-126) U/L Ammonia (<30) umol/L Total Creatine Kinase 78 (30-135) U/L CK-MB (CK-2) 1.2 (0.0-2.4) ng/mL CK-MB (CK-2) Rel Index 1.5 Troponin I <0.012 (0.000-0.034) ng/mL Total Protein (6.3-8.2) g/dL Albumin (3.5-5.0) g/dL Urine Color Urine Appearance (Clear) Urine pH (5.0-8.0) Ur Specific [place] (1.001-1.035) Urine Protein (Negative) Urine Glucose (UA) (Negative) Urine Ketones (Negative) Urine Blood (Negative) Urine Nitrite (Negative) Urine Bilirubin (Negative) Urine Urobilinogen (<2.0) mg/dL Ur Leukocyte Esterase (Negative) Urine RBC (0-5) /hpf Urine WBC (0-5) /hpf Ur Squamous Epith Cells (0-4) /hpf Urine Bacteria (None) /hpf Urine Mucus (None) /hpf Salicylates mg/dL Urine Opiates Screen (NotDetected) Ur Oxycodone Screen (NotDetected) Urine Methadone Screen (NotDetected) Ur Propoxyphene Screen (NotDetected) Acetaminophen ug/mL Ur Barbiturates Screen (NotDetected) U Tricyclic Antidepress (NotDetected) Ur Phencyclidine Scrn (NotDetected) Ur Amphetamines Screen (NotDetected) U Methamphetamines Scrn (NotDetected) U Benzodiazepines Scrn (NotDetected) Urine Cocaine Screen (NotDetected) U Marijuana (THC) Screen (NotDetected) Serum Alcohol mg/dL 12/13/17 Range/Units 12:00 WBC (3.8-10.6) k/uL RBC (3.80-5.40) m/uL Hgb (11.4-16.0) gm/dL Hct (34.0-46.0) % MCV (80.0-100.0) fL MCH (25.0-35.0) pg MCHC (31.0-37.0) g/dL RDW (11.5-15.5) % Plt Count (150-450) k/uL Neutrophils % % Lymphocytes % % Monocytes % % Eosinophils % % Basophils % % Neutrophils # (1.3-7.7) k/uL Lymphocytes # (1.0-4.8) k/uL Monocytes # (0-1.0) k/uL Eosinophils # (0-0.7) k/uL Basophils # (0-0.2) k/uL PT (9.0-12.0) sec INR (<1.2) APTT (22.0-30.0) sec Sodium (137-145) mmol/L Potassium (3.5-5.1) mmol/L Chloride (98-107) mmol/L Carbon Dioxide (22-30) mmol/L Anion Gap mmol/L BUN (7-17) mg/dL Creatinine (0.52-1.04) mg/dL Est GFR (CKD-EPI)AfAm (>60 ml/min/1.73 sqM) Est GFR (CKD-EPI)NonAf (>60 ml/min/1.73 sqM) Glucose (74-99) mg/dL POC Glucose (mg/dL) (75-99) mg/dL POC Glu Costing Analyst ID Calcium (8.4-10.2) mg/dL Magnesium (1.6-2.3) mg/dL Total Bilirubin (0.2-1.3) mg/dL AST (14-36) U/L ALT (9-52) U/L Alkaline Phosphatase (38-126) U/L Ammonia (<30) umol/L Total Creatine Kinase (30-135) U/L CK-MB (CK-2) (0.0-2.4) ng/mL CK-MB (CK-2) Rel Index Troponin I (0.000-0.034) ng/mL Total Protein (6.3-8.2) g/dL Albumin (3.5-5.0) g/dL Urine Color Yellow Urine Appearance Cloudy H (Clear) Urine pH 6.5 (5.0-8.0) Ur Specific [place] 1.010 (1.001-1.035) Urine Protein Negative (Negative) Urine Glucose (UA) Negative (Negative) Urine Ketones Negative (Negative) Urine Blood Negative (Negative) Urine Nitrite Positive H (Negative) Urine Bilirubin Negative (Negative) Urine Urobilinogen <2.0 (<2.0) mg/dL Ur Leukocyte Esterase Large H (Negative) Urine RBC 3 (0-5) /hpf Urine WBC 35 H (0-5) /hpf Ur Squamous Epith Cells 1 (0-4) /hpf Urine Bacteria Many H (None) /hpf Urine Mucus Rare H (None) /hpf Salicylates mg/dL Urine Opiates Screen Detected H (NotDetected) Ur Oxycodone Screen Not Detected (NotDetected) Urine Methadone Screen Not Detected (NotDetected) Ur Propoxyphene Screen Not Detected (NotDetected) Acetaminophen ug/mL Ur Barbiturates Screen Not Detected (NotDetected) U Tricyclic Antidepress Not Detected (NotDetected) Ur Phencyclidine Scrn Not Detected (NotDetected) Ur Amphetamines Screen Not Detected (NotDetected) U Methamphetamines Scrn Not Detected (NotDetected) U Benzodiazepines Scrn Detected H (NotDetected) Urine Cocaine Screen Not Detected (NotDetected) U Marijuana (THC) Screen Detected H (NotDetected) Serum Alcohol mg/dL - EKG Data -: EKG Interpreted by Me EKG shows normal: sinus rhythm, axis, intervals, QRS complexes, ST-T waves ( Normal sinus rhythm rate 68. Interval 164 QRS 92 QT since QTC 446/474 st-t wave changes) Rate: normal - Radiology Data Radiology results: report reviewed (I did review the imaging and report no definite acute findings.), image reviewed Disposition Clinical Impression: Delirium due to general medical condition, Urinary tract infection, Dehydration , Medication reaction Disposition: ADMITTED IP TO THIS [facility] Condition: Stable Referrals: Helio Mott MD [Primary Care Provider] - 1-2 days
[2017-12-13 11:59] LABS: Glucose,Whole Blood 89 mg/dL (75-99)
[2017-12-13 12:12] LABS: Basophils % (A) 0 %; Eosinophils # (A) 0.1 k/uL (0-0.7); Eosinophils % (A) 2 %; HCT 38.7 % (34.0-46.0); HGB 12.5 gm/dL (11.4-16.0); Lymphocytes # (A) 0.8 k/uL (1.0-4.8); Lymphocytes % (A) 11 %; MCH 28.9 pg (25.0-35.0); MCHC 32.4 g/dL (31.0-37.0); MCV 89.2 fL (80.0-100.0); Mean Platelet Volume 7.2; Monocytes # (A) 0.3 k/uL (0-1.0); Monocytes % (A) 4 %; Neutrophils # (A) 5.5 k/uL (1.3-7.7); Neutrophils % (A) 81 %; Platelet Count 258 k/uL (150-450); RBC 4.33 m/uL (3.80-5.40); RDW 13.5 % (11.5-15.5); WBC 6.7 k/uL (3.8-10.6)
[2017-12-13 12:21] LABS: Prothrombin Time 10.2 sec (9.0-12.0)
[2017-12-13 12:22] LABS: ALT 37 U/L (9-52); AST 41 U/L (14-36); Acetaminophen <10.0 ug/mL; Albumin 3.9 g/dL (3.5-5.0); Alcohol <10 mg/dL; Alkaline Phosphatase 134 U/L (38-126); Anion Gap 5 mmol/L; Blood Urea Nitrogen 22 mg/dL (7-17); Calcium 9.2 mg/dL (8.4-10.2); Carbon Dioxide 26 mmol/L (22-30); Chloride 106 mmol/L (98-107); Glucose 85 mg/dL (74-99); Salicylate <1.0 mg/dL; Sodium 137 mmol/L (137-145); Total Bilirubin 0.6 mg/dL (0.2-1.3); Total Protein 6.3 g/dL (6.3-8.2)
[2017-12-13 12:27] LABS: Appearance,Urine Cloudy (Clear); Bacteria,Urine Many /hpf; Bilirubin,Urine Negative (Negative); Blood,Urine Negative (Negative); Color,Urine Yellow; Glucose,Urine (UA) Negative (Negative); Ketones,Urine Negative (Negative); Leukocyte Esterase,Urine Large (Negative); Mucus,Urine Rare /hpf; Nitrite,Urine Positive (Negative); PH, Urine 6.5 (5.0-8.0); Protein,Urine Negative (Negative); RBC,Urine 3 /hpf (0-5); Squamous Epithelial Cell,Urine 1 /hpf (0-4); Urobilinogen,Urine <2.0 mg/dL (<2.0); WBC,Urine 35 /hpf (0-5)
[2017-12-13 12:28] LABS: Potassium 5.1 mmol/L (3.5-5.1)
[2017-12-13 12:28] LABS: Urn Cannabinoid Scrn Detected (NotDetected)
[2017-12-13 12:29] LABS: Amphetamine Screen,Urine Not Detected (NotDetected); Barbiturate Screen,Urine Not Detected (NotDetected); Benzodiazepines Screen,Urine Detected (NotDetected); Cocaine Screen,Urine Not Detected (NotDetected); Methadone Screen, Urine Not Detected (NotDetected); Opiate Screen,Urine Detected (NotDetected); Oxycodone Screen, Urine Not Detected (NotDetected); Phencyclidine Screen,Urine Not Detected (NotDetected); Tricyclic Antidepressant,Urine Not Detected (NotDetected)
--- NOTE | 2017-12-13 12:42 | CT ---
EXAMINATION TYPE: CT brain wo con DATE OF EXAM: 12/13/2017 COMPARISON: 08/25/2016 HISTORY: Altered mental status. CT DLP: 1008 mGycm Automated exposure control for dose reduction was used. TECHNIQUE: CT scan of the head is performed without contrast. FINDINGS: There is no acute intracranial hemorrhage or midline shift identified. There is diffuse v entricular and sulcal prominence consistent with diffuse age-related cerebral atrophy. There is an e volving old lacunar injury of the right external capsule decreasing in attenuation in comparison to t he prior of 08/25/2016. There are scattered areas of low-attenuation in the periventricular white lucas er most commonly related to sequela of chronic small vessel ischemic. The globes are intact and the visualized sinuses are clear. IMPRESSION: No acute intracranial process. 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
[2017-12-13 12:44] LABS: Creatine Kinase 78 U/L (30-135)
--- NOTE | 2017-12-13 12:56 | XR ---
EXAMINATION TYPE: XR chest 2V DATE OF EXAM: 12/13/2017 COMPARISON: 01/17/2016 HISTORY: Chest pain TECHNIQUE: Frontal and lateral views of the chest are obtained. FINDINGS: There is no focal air space opacity, pleural effusion, or pneumothorax seen. The cardiac silhouette size is within normal limits. 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 IMPRESSION: No acute cardiopulmonary process.
[2017-12-13 12:58] LABS: Creatine Kinase MB 1.2 ng/mL (0.0-2.4); Troponin I <0.012 ng/mL (0.000-0.034)
[2017-12-13] MEDS ORDERED: cefTRIAXone IN SWFI 1,000 MG/10 ML SYRINGE IVP STA (15:59)
[2017-12-13] MEDS ORDERED: NALOXONE 0.4 MG/ML 1 ML VIAL IV PRN (17:00)
[2017-12-13] MEDS: SODIUM CHLORIDE 0.9% 1,000 ML IV SCH (18:49)
[2017-12-13] MEDS: ACETAMINOPHEN TAB 325 MG TAB PO PRN (18:54)
[2017-12-13] MEDS: GABAPENTIN 100 MG CAP PO SCH (21:22)
[2017-12-13] MEDS: FLUoxetine HCL 20 MG CAP PO SCH (21:22)
[2017-12-13] MEDS: ARIPiprazole 2 MG TAB PO SCH (21:22)
[2017-12-13] MEDS: lamoTRIgine 100 MG TAB PO SCH (21:23)
[2017-12-13] MEDS: PREGABALIN 75 MG CAP PO SCH (22:40)
[2017-12-14] MEDS: SODIUM CHLORIDE 0.9% 1,000 ML IV SCH ×2 (05:34→16:54)
[2017-12-14] MEDS: PREGABALIN 75 MG CAP PO SCH ×2 (08:23→22:00)
[2017-12-14] MEDS: GABAPENTIN 100 MG CAP PO SCH ×2 (08:23→22:00)
[2017-12-14] MEDS: FLUoxetine HCL 20 MG CAP PO SCH ×2 (08:23→22:44)
[2017-12-14] MEDS: lamoTRIgine 100 MG TAB PO SCH ×2 (08:24→22:00)
--- NOTE | 2017-12-14 10:36 | P.HPIM ---
<Anila Martin - Last Filed: 12/14/17 11:42> History of Present Illness H&P Date: 12/14/17 Chief Complaint: Confusion 77-year-old female who presented to the emergency room via EMS for altered mental status. [facility]. She reports over the past few days, she has been getting more confused and "mixed up ". She states she walked to the office of the complex and the staff called EMS. According to ER reports, EMS found the patient with medication bottles that had various pills mixed together and a newly obtained bottle of xanax that was empty. The patient states she has the "[place] of pill boxes" at home that is divided into days and also time of day. The patient states she sorts her pills into her pill box, but for the last day or two she took her morning medications at 0700 and then she reports at 0800 she couldnt remember if she took them, so she took all her morning pills again. When I asked the patient about using the pill box and seeing that she already took those medications in the morning she stated "I dont know how it happened. I was just so confused". The patient reports frequent falls. She uses a walker to ambulate. She states she walks her small dog and sometimes falls because the cement is not level. She reports falling two days ago in her apartment and hitting her head on the carpet. She denied any further injuries. The patient does report increased urinary frequency and urgency over the past week. She denies burning with urination or dysuria. The patient denies chest pain or pressure. She denies cough or congestion. She denies fever or chills. Denies lightheadedness or dizziness. The patient complains of pain to her bilateral lower extremities which has been ongoing for many months. The patient states she was seen by her primary care physician regarding this. She states "I am scheduled for a test for the circulation on my legs today". Upon further investigating, patient is scheduled for 12/17/2017 at 8:20 AM for KELBY with toe pressure. Patient was given the current time and date of her testing. She reports she is . She states that she has one son who visits her regularly. She also reports she had another son who about 16-17 years ago. She states started smoking at the age of 15. She reports that quit smoking a year before her son , but after his she started smoking again. She has decreased the amount of cigarettes she smokes over the years. She reports smoking two cigarettes a day. The patient denies alcohol use. The patient denied taking any narcotics or using marijuana. Toxicology reports were discussed with patient which was positive for opioids, benzodiazepines, and marijuana. Patient then admitted she has been using some leftover [place] for her leg pain that she has from when she broke her right arm. Patient also reports that she had some candy bars with marijuana in them that someone gave her which she has been using for pain as well. The patient has a history of anxiety, bipolar disorder, depression, and panic disorder. She states that she sees a psychiatrist, Dr. Hopkins regularly. She reports that he prescribes all her psychiatric medications. The patient also has a history of COPD, GERD, arthritis, and pneumonia. Patient has a surgical history of a left nephrectomy when she was a teenager due to an infection. The patient also reports having a bowel resection in the past for diverticulitis with Dr. Edwards. Chest x-ray: Negative for an acute process. CT of the brain: Negative for an acute process. Evolving old lacunar injury of right external capsule. Laboratory data WBC 6.7. Hemoglobin 12.5. Platelet count 258. INR 1.0. Sodium 137. Potassium 5.1. BUN 22. Creatinine 0.80. Glucose 85. Magnesium 2.0. AST 41. A 37. Alkaline phosphatase 134. Troponin negative 1. Urinalysis reveals: Cloudy yellow urine, positive nitrites, large leukocyte esterase, RBC 3, WBC 35, epithelial cells 1, many bacteria, rare mucus The patient was admitted to the hospital under the care of Dr. Ayon. Review of Systems Those systems with pertinent positive or pertinent negative responses have been documented in the HPI Past Medical History Past Medical History: COPD, GERD/Reflux, Osteoarthritis (OA), Pneumonia, Renal Disease Additional Past Medical History / Comment(s): falls, usses walker,diverticulosis , Gait dysfunction-uses walker, rib removed during nefphrectomy., History of Any Multi-Drug Resistant Organisms: None Reported Past Surgical History: Bowel Resection, Hysterectomy, Orthopedic Surgery Additional Past Surgical History / Comment(s): left kidney removed as a teen d/ t infection,exploratory lap in past-unsure what for.Low anterior resection for diverticulosis, partial lt masectomy but found out it was'nt cancer, cataracts, colonoscopy, rt ear sx Past Anesthesia/Blood Transfusion Reactions: No Reported Reaction Additional Past Anesthesia/Blood Transfusion Reaction / Comment(s): had worsening psych. issues after last surgery-thought might be from anesthesia Smoking Status: Current every day smoker - Past Family History Father Family Medical History: Cancer Mother Family Medical History: Cancer Medications and Allergies Home Medications Medication Instructions Recorded Confirmed Type lamoTRIgine [LaMICtal] 150 mg PO BID 30 Days tablet 05/03/14 12/13/17 Rx FLUoxetine HCL [PROzac] 20 mg PO HS 07/08/15 12/13/17 History ALPRAZolam [Xanax] 0.5 mg PO TID PRN 02/23/16 12/13/17 History ARIPiprazole [Abilify] 2 mg PO HS 07/17/17 12/13/17 History FLUoxetine HCL [PROzac] 40 mg PO QAM 09/04/17 12/13/17 History Gabapentin [Neurontin] 100 mg PO BID 12/13/17 12/13/17 History Pregabalin [Lyrica] 75 mg PO BID 12/13/17 12/13/17 History Allergies Allergy/AdvReac Type Severity Reaction Status Date / Time No Known Allergies Allergy Verified 12/13/17 11:54 Physical Exam Vitals: Vital Signs Temp Pulse Pulse Resp BP BP Pulse Ox 12/14/17 06:00 96.8 F L 64 18 132/62 96 12/13/17 23:00 97.9 F 64 18 137/62 94 L 12/13/17 20:27 97.1 F L 62 16 158/71 98 12/13/17 18:25 67 16 138/79 97 12/13/17 16:20 65 16 146/55 96 12/13/17 15:34 58 L 16 135/51 97 12/13/17 14:34 64 16 131/51 97 12/13/17 13:34 60 16 157/54 99 12/13/17 13:20 61 18 164/62 100 12/13/17 11:37 97.1 F L 87 18 162/72 96 Intake and Output 12/13/17 12/14/17 12/14/17 22:59 06:59 14:59 Intake Total 100 Balance 100 Intake: Oral 100 Other: Voiding Method Bedpan Bedpan Diaper Diaper # Voids 2 1 # Bowel Movements 1 Weight 63.957 kg GENERAL: This is a 77-year-old female in no apparent distress at the time of examination. Pleasant and cooperative. HEENT: Head is atraumatic, normocephalic. Pupils are equal, round, and reactive to light. Sclerae anicteric. Conjunctivae are clear. Mucus membranes of the mouth are moist. Neck is supple. RESPIRATORY: Clear to ausculation. No wheezes, rales, or rhonchi. No use of accessory muscles. Patient maintaining oxygen saturation greater than 92%. No chest wall tenderness is noted on palpation or with deep breathing. CARDIOVASCULAR: Regular rate and rhythm. S1 and S2 noted. No JVD noted. No S3 or S4 noted. GASTROINTESTINAL: No distention noted. Abdomen soft and round. Normal active bowel sounds auscultated x 4 quadrants. No pain or tenderness noted upon palpation. INTEGUMENTARY: No cyanosis. No jaundice. No rashes noted. No cellulitis noted. EXTREMITIES: 2+ peripheral pulses. No evidence of peripheral edema. No calf tenderness noted. NEUROLOGIC: Cranial nerves II-XII intact. PSYCHIATRIC: Awake and alert. She is oriented 3 at this time.. Appropriate affect. Results CBC & Chem 7: 12/13/17 11:54 12/13/17 11:54 Labs: Abnormal Lab Results - Last 24 Hours (Table) 12/13/17 12/13/17 12/13/17 Range/Units 11:54 11:54 12:00 Lymphocytes # 0.8 L (1.0-4.8) k/uL BUN 22 H (7-17) mg/dL AST 41 H (14-36) U/L Alkaline Phosphatase 134 H (38-126) U/L Urine Appearance Cloudy H (Clear) Urine Nitrite Positive H (Negative) Ur Leukocyte Esterase Large H (Negative) Urine WBC 35 H (0-5) /hpf Urine Bacteria Many H (None) /hpf Urine Mucus Rare H (None) /hpf Urine Opiates Screen Detected H (NotDetected) U Benzodiazepines Scrn Detected H (NotDetected) U Marijuana (THC) Screen Detected H (NotDetected) Thrombosis Risk Factor Assmnt - Choose All That Apply Any of the Below Risk Factors Present?: Yes Each Factor Represents 1 point: Medical pt on bed rest Each Risk Factor Represents 2 Points: Arthroscopic surgery Each Risk Factor Represents 3 Points: Age 75 years or older Other congenital or acquired thrombophilia - If yes, enter type in comment: No Thrombosis Risk Factor Assessment Total Risk Factor Score: 6 Thrombosis Risk Factor Assessment Level: High Risk Assessment and Plan Plan: ASSESSMENT: Urinary tract infection, present on admission, cultures pending Encephalopathy, mixed etiology, suspect combination of urinary tract infection and overuse of medications Noncompliance with medication regimen due to suspected incorrect storage of medications Overuse of medications due to confusion History of anxiety, bipolar, depression, and panic disorder: under psychiatric treatment with Dr. 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 History of diverticulitis with bowel resection Chronic bilateral leg pain, r/o arterial insufficiency Nicotine dependence, patient is a current cigarette smoker Cannabis use Opiate drug detected in toxicology screen, patient reports taking old left over prescription opioids PLAN: Continue antibiotics Continue IV fluids Obtain urine culture Patient scheduled for outpatient KELBY with toe pressures 12/17/2017 at 0820 Home meds as appropriate Monitor labs GI prophylaxis: Protonix 40 mg PO Daily DVT prophylaxis: Heparin 5000 units subcu every 8 hours Monitor vital signs and address as appropriate Discharge planning: Patient to return home when stable. Likely will need home care or other services to ensure patient is taking medications properly. PT/OT consulted to evaluate patient to determine if MARV is needed Further recommendations pending patient's course Nurse practitioner note has been reviewed by physician. Signing provider agrees with the documented findings, assessment, and plan of care. <Devaughn Ayon Jr - Last Filed: 12/15/17 08:02> History of Present Illness H&P Date: 12/14/17 Physical Exam Osteopathic Statement: *. No significant issues noted on an osteopathic structural exam other than those noted in the History and Physical/Consult. Vitals: Vital Signs Temp Pulse Pulse Resp BP BP Pulse Ox 12/15/17 07:00 97.5 F L 65 20 159/68 97 12/14/17 23:30 97.4 F L 61 20 160/81 96 12/14/17 15:54 18 12/14/17 15:00 98.4 F 48 L 16 143/65 97 Intake and Output 12/14/17 12/15/17 12/15/17 22:59 06:59 14:59 Intake Total 300 100 Output Total 3 Balance 297 100 Intake: Oral 300 100 Output: Urine/Stool Mix 3 Other: Voiding Method Bedpan Diaper # Voids 3 3 # Bowel Movements 3 Results CBC & Chem 7: 12/13/17 11:54 12/13/17 11:54 Labs: Microbiology - Last 24 Hours (Table) 12/14/17 10:04 Urine Culture - Preliminary Urine,Clean Catch 12/13/17 11:54 Blood Culture - Preliminary Blood No Growth after 24 hours
[2017-12-14] MEDS: HEPARIN SODIUM,PORCINE 5,000 UNIT/ML 1 ML VIAL SQ SCH ×2 (15:54→22:45)
[2017-12-14] MEDS ORDERED: cefTRIAXone IN SWFI 1,000 MG/10 ML SYRINGE IVP SCH (16:00)
--- NOTE | 2017-12-14 16:43 | CDI ---
Last Revision, April 2017 Documentation Clarification Form Date: 12/14/17 From: Henrietta Hassan RN, CCDS Admit Date: 12/13/2017 5:00:00 PM Patient Name: Mirtha Trevino V Visit Number: [id number] Discharge Date: ATTENTION: The Clinical Documentation Specialists (CDI) and [facility] Coding Staff appreciate your assistance in clarifying documentation. Please respond to the clarification below the line at the bottom and electronically sign. The CDI & [facility] Coding staff will review the response and follow-up if needed. Please note: Queries are made part of the Legal Health Record. If you have any questions, please contact the author of this message via ITS. Devaughn Bautista DO Altered mental status was documented in the ED evaluation and in your H&P Encephalopathy, mixed etiology. Patient history/risk factors: Anxiety, Bipolar, panic disorder, Cannabis use, Opiate use Clinical Indicators: Presented with ER via EMS for altered mental status. She was getting more confused. EMS found medication bottles that had various pills mixed together and a newly obtained bottle of xanax that was empty. Vital signs on admission; 162/72 87 18 97.1 96 % RA Labs: WBC 6.7, Urinalysis; positive nitrites, Large leukocyte esterase; Urine drug screen positive for opiates, Benzodiazepines, THC Chest X Ray: Negative CT Brain Negative Treatment: Neurological assessment per protocol IV Fluids Monitor Labs Rocephin IV In your professional opinion, please clarify the type of the Encephalopathy, if known. Metabolic Encephalopathy ( with infectious source) Toxic Encephalopathy ( Medication, drug source) Metabolic and Toxic Encephalopathy Other, please specify Unable to determine Please continue to document in your progress notes and discharge summary in order to capture severity of illness and risk of mortality. Include clinical findings that support your diagnosis. MTDD
[2017-12-14] MEDS: ARIPiprazole 2 MG TAB PO SCH (22:00)
[2017-12-15 07:26] VITALS: BP 159/68; PULSE 65; TEMP 97.5
[2017-12-15] MEDS ORDERED: PANTOPRAZOLE 40 MG TABLET PO SCH (07:30)
[2017-12-15] MEDS: SODIUM CHLORIDE 0.9% 1,000 ML IV SCH (08:17)
[2017-12-15] MEDS: GABAPENTIN 100 MG CAP PO SCH (08:18)
[2017-12-15] MEDS: FLUoxetine HCL 20 MG CAP PO SCH (08:19)
[2017-12-15] MEDS: lamoTRIgine 100 MG TAB PO SCH (08:19)
[2017-12-15] MEDS: HEPARIN SODIUM,PORCINE 5,000 UNIT/ML 1 ML VIAL SQ SCH (08:19)
[2017-12-15] MEDS: ACETAMINOPHEN TAB 325 MG TAB PO PRN (08:21)
[2017-12-15] MEDS: PREGABALIN 75 MG CAP PO SCH (08:21)
[2017-12-15] MEDS ORDERED: SULFAMETHOX-TMP 400-80MG 1 EACH TAB PO SCH (09:00)
--- NOTE | 2017-12-15 09:07 | P.DS ---
Providers Date of admission: 12/13/17 17:00 Expected date of discharge: 12/15/17 Attending physician: Devaughn Ayon Primary care physician: Helio Mott - Discharge Diagnosis(es) (1) Urinary tract infection Patient doing quite well no new complaints, is mentally intact awake and oriented 3 General: [Patient awake, alert and oriented times 3. Patient in no acute distress.] HEENT: [PERRL. EOMI. No pharyngeal erythema or exudate.] Neck: [No adenopathy.] Cardiac: [Heart regular in rate and rhythm. No S3. No S4. No clicks, rubs. No murmur.] Lungs: [Clear to auscultation bilaterally.] Abdomen: [No mass. No organomegaly. Bowel sounds presnt and normoactive in all 4 quadrants.] Extremes: [No edema no cyanosis no claudication normal pulses] : [] Musculoskeletal: [No joint erythema, edema or tenderness.] Skin: [No rash.] Neurologic: [No lateralizing deficits. CN II - XII grossly intact.] Lymphatic: [No adenopathy.] Current Visit: Yes Status: Acute Patient Condition at Discharge: Stable Plan - Discharge Summary Discharge Rx Participant: Yes New Discharge Prescriptions: New Sulfamethox-Tmp 400-80Mg [Bactrim SS 400-80 mg] 1 tab PO Q12HR #10 tablet No Action lamoTRIgine [LaMICtal] 150 mg PO BID 30 Days tablet FLUoxetine HCL [PROzac] 20 mg PO HS ALPRAZolam [Xanax] 0.5 mg PO TID PRN PRN Reason: Anxiety ARIPiprazole [Abilify] 2 mg PO HS FLUoxetine HCL [PROzac] 40 mg PO QAM Pregabalin [Lyrica] 75 mg PO BID Gabapentin [Neurontin] 100 mg PO BID Discharge Medication List lamoTRIgine [LaMICtal] 150 mg PO BID 30 Days tablet 05/03/14 [Rx] FLUoxetine HCL [PROzac] 20 mg PO HS 07/08/15 [History] ALPRAZolam [Xanax] 0.5 mg PO TID PRN 02/23/16 [History] ARIPiprazole [Abilify] 2 mg PO HS 07/17/17 [History] FLUoxetine HCL [PROzac] 40 mg PO QAM 09/04/17 [History] Gabapentin [Neurontin] 100 mg PO BID 12/13/17 [History] Pregabalin [Lyrica] 75 mg PO BID 12/13/17 [History] Sulfamethox-Tmp 400-80Mg [Bactrim SS 400-80 mg] 1 tab PO Q12HR #10 tablet [Rx] Follow up Appointment(s)/Referral(s): [facility], [NON-STAFF] - 1-2 Days Helio Mott MD [Primary Care Provider] - 1-2 days
[2017-12-15 10:00] VITALS: RESP 18
== END 2017-12-15 10:15 | disposition home health service (06) | DRG 917 ==
LOC: EC 11:30 → 4MS4W 17:00
PROVIDERS: ADMIT Family Medicine; ATTEND Family Medicine
DX: T50.901A Poisoning by unspecified drugs, medicaments and biological substances, accidental (unintentional), initial encounter (principal); G92 Toxic encephalopathy; F05 Delirium due to known physiological condition; N39.0 Urinary tract infection, site not specified; E86.0 Dehydration; F17.210 Nicotine dependence, cigarettes, uncomplicated; F31.9 Bipolar disorder, unspecified; F41.0 Panic disorder [episodic paroxysmal anxiety]; J44.9 Chronic obstructive pulmonary disease, unspecified; K21.9 Gastro-esophageal reflux disease without esophagitis; R29.6 Repeated falls; Z79.899 Other long term (current) drug therapy; Z90.5 Acquired absence of kidney; Z90.710 Acquired absence of both cervix and uterus; Z91.14 Patient's other noncompliance with medication regimen; Z98.49 Cataract extraction status, unspecified eye
CPT/HCPCS: 36415; 70450; 71046; 80053; 80306; 80320; 81001; 82140; 82550; 82553; 83520; 83735; 84484; 85025; 85610; 85730; 87040; 87077; 87086; 87186; 93005; 96361; 96374; 99285

== ENCOUNTER 2018-08-13 07:42 | Day surgery (SDC) | payer MEDICARE, OTHER ==
[2018-08-12 08:57] VITALS: BMI 27.9
[~2018-08-13 07:42] MED LIST: LACTATED RINGERS 1,000 ML IV SCH; LIDOCAINE 1% 20 ML VIAL (10MG/ML) FOR IV START INTRADERMA PRN; MIDAZOLAM (PF) 2 MG/2 ML VIAL IV PRN
[2018-08-13 07:57] VITALS: RESP 16; TEMP 97.6
[2018-08-13] MEDS ORDERED: PROPOFOL 10 MG/ML 20 ML VIAL IV ONE (08:24)
[2018-08-13] MEDS ORDERED: LIDOCAINE 1% INJ 10MG/ML (20 ML MDV) ONE (08:24)
--- NOTE | 2018-08-13 08:41 | P.GSHP ---
History of Present Illness H&P Date: 08/13/18 Chief Complaint: History of colitis, change in bowel habits This a 78-year-old female with a previous history of colitis. Patient states she's had change in bowel habits. She describes pencillike stools. She is also had issues with hemorrhoids. Past Medical History Past Medical History: COPD, GERD/Reflux, Osteoarthritis (OA), Pneumonia, Renal Disease Additional Past Medical History / Comment(s): falls, uses walker,diverticulosis, rib removed during nephrectomy. History of Any Multi-Drug Resistant Organisms: None Reported Past Surgical History: Bowel Resection, Hysterectomy, Orthopedic Surgery Additional Past Surgical History / Comment(s): left kidney removed as a teen d/t infection,exploratory lap in past-unsure what for.Low anterior resection for diverticulosis, partial lt masectomy but found out it wasn't cancer, cataracts,colonoscopy, rt ear sx Past Anesthesia/Blood Transfusion Reactions: Previous Problems w/ Anesthesia Additional Past Anesthesia/Blood Transfusion Reaction / Comment(s): had worsening psych. issues after last surgery-thought might be from anesthesia Smoking Status: Current some day smoker - Past Family History Father Family Medical History: Cancer Mother Family Medical History: Cancer Medications and Allergies Home Medications Medication Instructions Recorded Confirmed Type lamoTRIgine [LaMICtal] 150 mg PO BID 30 Days tablet 05/03/14 08/13/18 Rx ALPRAZolam [Xanax] 0.5 mg PO TID PRN 02/23/16 08/13/18 History ARIPiprazole [Abilify] 2 mg PO HS 07/17/17 08/13/18 History FLUoxetine HCL [PROzac] 40 mg PO QAM 09/04/17 08/13/18 History Allergies Allergy/AdvReac Type Severity Reaction Status Date / Time No Known Allergies Allergy Verified 08/13/18 08:04 Surgical - Exam Vital Signs Temp Pulse Resp BP Pulse Ox 97.6 F 63 16 157/68 98 08/13/18 07:54 08/13/18 07:54 08/13/18 07:54 08/13/18 07:54 08/13/18 07:54 - General well developed, well nourished, no distress - Eyes PERRL - ENT normal pinna - Neck no masses - Respiratory normal expansion - Cardiovascular Rhythm: regular - Abdomen Abdomen: soft, non tender Assessment and Plan Assessment: History of colitis Change in bowel habits We'll perform colonoscopy.
--- NOTE | 2018-08-13 08:42 | P.OP ---
Date of Procedure: 08/13/18 Preoperative Diagnosis: Change in bowel habit History of colitis Postoperative Diagnosis: Normal colonoscopy Hemorrhoids Procedure(s) Performed: Colonoscopy Anesthesia: MAC Surgeon: Joseph Edwards Pathology: none sent Condition: stable Disposition: PACU Description of Procedure: The patient's placed on the endoscopy table in the lateral position. She received IV sedation. Digital rectal exam was performed which revealed internal and external hemorrhoids. The patient's perineum had evidence of a dermatitis. The flexible colonoscope was then placed patient anus passed throughout the entire colon. The ileocecal valve was visualized. The cecum, ascending and transverse colon appeared normal. The descending colon appeared normal. The patient a previous sigmoid colectomy the colorectal anastomosis could not be visualized. There is no evidence of any scarring. The rectum. Normal. Scope was withdrawn for patient.
[2018-08-13 09:02] VITALS: BP 121/71; PULSE 66
== END 2018-08-13 09:24 | disposition home or self-care (01) ==
LOC: ORWHC2ENDO 07:42
PROVIDERS: ATTEND Surgery
DX: R19.4 Change in bowel habit (principal); K64.8 Other hemorrhoids; K64.4 Residual hemorrhoidal skin tags; Z87.19 Personal history of other diseases of the digestive system; Z90.49 Acquired absence of other specified parts of digestive tract; J44.9 Chronic obstructive pulmonary disease, unspecified; K21.9 Gastro-esophageal reflux disease without esophagitis; N28.9 Disorder of kidney and ureter, unspecified; F17.210 Nicotine dependence, cigarettes, uncomplicated; M19.90 Unspecified osteoarthritis, unspecified site; Z90.5 Acquired absence of kidney; Z79.899 Other long term (current) drug therapy; Z88.2 Allergy status to sulfonamides
CPT/HCPCS: 45378; J2001; J2704

== ENCOUNTER 2018-10-06 09:18 | Emergency (ER) | payer MEDICARE, OTHER ==
[2018-10-06 09:26] VITALS: RESP 18
[2018-10-06] MEDS ORDERED: SODIUM CHLORIDE 0.9% 1,000 ML IV STA (10:10)
--- NOTE | 2018-10-06 10:23 | ED ---
Weakness HPI - General Chief complaint: Fall Stated complaint: fall/head pain Time Seen by Provider: 10/06/18 09:19 Source: patient, RN notes reviewed, old records reviewed Mode of arrival: ambulatory Limitations: no limitations - History of Present Illness Initial comments: This is a 78-year-old female the ER for evaluation patient presents status post a fall week ago with head injury. No evaluation regarding the fall. Patient has no history of blood thinners. She states she's been severely weak dizzy since. Occasional shortness of breath no chest pain no abdominal pain no nausea vomiting or diarrhea no recent medication changes. Patient is has been feeling herself for about a week, fatigue. MD Complaint: generalized weakness, lack of energy -: week(s) Location: generalized Severity: mild Severity scale (1-10): 2 Consistency: constant Improves with: none Worsens with: none Context: trauma/injury Associated Symptoms: denies other symptoms - Related Data Home Medications Medication Instructions Recorded Confirmed ARIPiprazole [Abilify] 2 mg PO DAILY 07/17/17 10/06/18 FLUoxetine HCL [PROzac] 20 mg PO HS 09/04/17 10/06/18 Magnesium 200 mg PO DAILY 10/06/18 10/06/18 Previous Rx's Medication Instructions Recorded lamoTRIgine [LaMICtal] 150 mg PO BID 30 Days tablet 05/03/14 Allergies Allergy/AdvReac Type Severity Reaction Status Date / Time No Known Allergies Allergy Verified 10/06/18 09:48 Review of Systems ROS Statement: Those systems with pertinent positive or pertinent negative responses have been documented in the HPI. ROS Other: All systems not noted in ROS Statement are negative. Past Medical History Past Medical History: COPD, GERD/Reflux, Osteoarthritis (OA), Pneumonia, Renal Disease Additional Past Medical History / Comment(s): falls, uses walker,diverticulosis, rib removed during nephrectomy. History of Any Multi-Drug Resistant Organisms: None Reported Past Surgical History: Bowel Resection, Hysterectomy, Orthopedic Surgery Additional Past Surgical History / Comment(s): left kidney removed as a teen d/t infection,exploratory lap in past-unsure what for.Low anterior resection for diverticulosis, partial lt masectomy but found out it wasn't cancer, cataracts,colonoscopy, rt ear sx Past Anesthesia/Blood Transfusion Reactions: Previous Problems w/ Anesthesia Additional Past Anesthesia/Blood Transfusion Reaction / Comment(s): had worsening psych. issues after last surgery-thought might be from anesthesia Past Psychological History: Anxiety, Bipolar, Depression, Panic Disorder Smoking Status: Current some day smoker Past Alcohol Use History: Rare Past Drug Use History: None Reported - Past Family History Father Family Medical History: Cancer Mother Family Medical History: Cancer General Exam Limitations: no limitations General appearance: alert, in no apparent distress Head exam: Present: atraumatic, normocephalic, normal inspection Eye exam: Present: normal appearance, PERRL, EOMI. Absent: scleral icterus, conjunctival injection, periorbital swelling ENT exam: Present: normal exam, mucous membranes moist Neck exam: Present: normal inspection. Absent: tenderness, meningismus, lymphadenopathy Respiratory exam: Present: normal lung sounds bilaterally. Absent: respiratory distress, wheezes, rales, rhonchi, stridor Cardiovascular Exam: Present: regular rate, normal rhythm, normal heart sounds. Absent: systolic murmur, diastolic murmur, rubs, gallop, clicks GI/Abdominal exam: Present: soft, normal bowel sounds. Absent: distended, tenderness, guarding, rebound, rigid Extremities exam: Present: normal inspection, full ROM, normal capillary refill. Absent: tenderness, pedal edema, joint swelling, calf tenderness Back exam: Present: normal inspection Neurological exam: Present: alert, oriented X3, CN II-XII intact Psychiatric exam: Present: normal affect, normal mood Skin exam: Present: warm, dry, intact, normal color. Absent: rash Course Vital Signs 10/06/18 09:22 Temperature 97.8 F Pulse Rate 81 Respiratory 18 Rate Blood Pressure 150/66 O2 Sat by Pulse 98 Oximetry - Reevaluation(s) Reevaluation #1: 10/06/18 10:47 Medical record reviewed Reevaluation #2: 10/06/18 10:47 Feeling better with hydration EKG Findings - EKG Comments: EKG Findings:: EKG shows normal sinus rhythm rate of 64, [place] 170, QRS 70, QTc 468 Medical Decision Making - Medical Decision Making 78 female the ER for evaluation. Patient resents a for evaluation weakness after fall. No headache injury noted labwork is normal patient can be discharged home - Lab Data Result diagrams: 10/06/18 10:28 10/06/18 10:28 Lab Results 10/06/18 10/06/1810/06/19 Range/Units 10:28 10:28 10:28 WBC 6.7 (3.8-10.6) k/uL RBC 4.73 (3.80-5.40) m/uL Hgb 13.5 (11.4-16.0) gm/dL Hct 41.5 (34.0-46.0) % MCV 87.8 (80.0-100.0) fL MCH 28.5 (25.0-35.0) pg MCHC 32.5 (31.0-37.0) g/dL RDW 14.9 (11.5-15.5) % Plt Count 287 (150-450) k/uL Neutrophils % 76 % Lymphocytes % 14 % Monocytes % 5 % Eosinophils % 2 % Basophils % 1 % Neutrophils # 5.0 (1.3-7.7) k/uL Lymphocytes # 1.0 (1.0-4.8) k/uL Monocytes # 0.3 (0-1.0) k/uL Eosinophils # 0.1 (0-0.7) k/uL Basophils # 0.1 (0-0.2) k/uL PT (9.0-12.0) sec INR (<1.2) APTT (22.0-30.0) sec Sodium 138 (137-145) mmol/L Potassium 4.8 (3.5-5.1) mmol/L Chloride 102 (98-107) mmol/L Carbon Dioxide 26 (22-30) mmol/L Anion Gap 10 mmol/L BUN 23 H (7-17) mg/dL Creatinine 1.12 H (0.52-1.04) mg/dL Est GFR (CKD-EPI)AfAm 55 (>60 ml/min/1.73 sqM) Est GFR (CKD-EPI)NonAf 47 (>60 ml/min/1.73 sqM) Glucose 101 H (74-99) mg/dL Plasma Lactic Acid Vern 1.4 (0.7-2.0) mmol/L Calcium 9.3 (8.4-10.2) mg/dL Phosphorus 3.7 (2.5-4.5) mg/dL Magnesium 2.1 (1.6-2.3) mg/dL Total Bilirubin 0.4 (0.2-1.3) mg/dL AST 26 (14-36) U/L ALT 23 (9-52) U/L Alkaline Phosphatase 182 H (38-126) U/L Troponin I (0.000-0.034) ng/mL NT-Pro-B Natriuret Pep pg/mL Total Protein 6.6 (6.3-8.2) g/dL Albumin 4.2 (3.5-5.0) g/dL Urine Color Urine Appearance (Clear) Urine pH (5.0-8.0) Ur Specific [place] (1.001-1.035) Urine Protein (Negative) Urine Glucose (UA) (Negative) Urine Ketones (Negative) Urine Blood (Negative) Urine Nitrite (Negative) Urine Bilirubin (Negative) Urine Urobilinogen (<2.0) mg/dL Ur Leukocyte Esterase (Negative) Urine RBC (0-5) /hpf Urine WBC (0-5) /hpf Ur Squamous Epith Cells (0-4) /hpf Urine Bacteria (None) /hpf Urine Mucus (None) /hpf 10/06/18 10/06/18 10/06/18 Range/Units 10:28 10:28 10:28 WBC (3.8-10.6) k/uL RBC (3.80-5.40) m/uL Hgb (11.4-16.0) gm/dL Hct (34.0-46.0) % MCV (80.0-100.0) fL MCH (25.0-35.0) pg MCHC (31.0-37.0) g/dL RDW (11.5-15.5) % Plt Count (150-450) k/uL Neutrophils % % Lymphocytes % % Monocytes % % Eosinophils % % Basophils % % Neutrophils # (1.3-7.7) k/uL Lymphocytes # (1.0-4.8) k/uL Monocytes # (0-1.0) k/uL Eosinophils # (0-0.7) k/uL Basophils # (0-0.2) k/uL PT 9.8 (9.0-12.0) sec INR 0.9 (<1.2) APTT 22.6 (22.0-30.0) sec Sodium (137-145) mmol/L Potassium (3.5-5.1) mmol/L Chloride (98-107) mmol/L Carbon Dioxide (22-30) mmol/L Anion Gap mmol/L BUN (7-17) mg/dL Creatinine (0.52-1.04) mg/dL Est GFR (CKD-EPI)AfAm (>60 ml/min/1.73 sqM) Est GFR (CKD-EPI)NonAf (>60 ml/min/1.73 sqM) Glucose (74-99) mg/dL Plasma Lactic Acid Vern (0.7-2.0) mmol/L Calcium (8.4-10.2) mg/dL Phosphorus (2.5-4.5) mg/dL Magnesium (1.6-2.3) mg/dL Total Bilirubin (0.2-1.3) mg/dL AST (14-36) U/L ALT (9-52) U/L Alkaline Phosphatase (38-126) U/L Troponin I <0.012 (0.000-0.034) ng/mL NT-Pro-B Natriuret Pep pg/mL Total Protein (6.3-8.2) g/dL Albumin (3.5-5.0) g/dL Urine Color Yellow Urine Appearance Clear (Clear) Urine pH 7.0 (5.0-8.0) Ur Specific [place] 1.013 (1.001-1.035) Urine Protein Negative (Negative) Urine Glucose (UA) Negative (Negative) Urine Ketones Negative (Negative) Urine Blood Negative (Negative) Urine Nitrite Negative (Negative) Urine Bilirubin Negative (Negative) Urine Urobilinogen <2.0 (<2.0) mg/dL Ur Leukocyte Esterase Large H (Negative) Urine RBC 1 (0-5) /hpf Urine WBC 41 H (0-5) /hpf Ur Squamous Epith Cells 2 (0-4) /hpf Urine Bacteria Moderate H (None) /hpf Urine Mucus Rare H (None) /hpf 10/06/18 Range/Units 10:28 WBC (3.8-10.6) k/uL RBC (3.80-5.40) m/uL Hgb (11.4-16.0) gm/dL Hct (34.0-46.0) % MCV (80.0-100.0) fL MCH (25.0-35.0) pg MCHC (31.0-37.0) g/dL RDW (11.5-15.5) % Plt Count (150-450) k/uL Neutrophils % % Lymphocytes % % Monocytes % % Eosinophils % % Basophils % % Neutrophils # (1.3-7.7) k/uL Lymphocytes # (1.0-4.8) k/uL Monocytes # (0-1.0) k/uL Eosinophils # (0-0.7) k/uL Basophils # (0-0.2) k/uL PT (9.0-12.0) sec INR (<1.2) APTT (22.0-30.0) sec Sodium (137-145) mmol/L Potassium (3.5-5.1) mmol/L Chloride (98-107) mmol/L Carbon Dioxide (22-30) mmol/L Anion Gap mmol/L BUN (7-17) mg/dL Creatinine (0.52-1.04) mg/dL Est GFR (CKD-EPI)AfAm (>60 ml/min/1.73 sqM) Est GFR (CKD-EPI)NonAf (>60 ml/min/1.73 sqM) Glucose (74-99) mg/dL Plasma Lactic Acid Vern (0.7-2.0) mmol/L Calcium (8.4-10.2) mg/dL Phosphorus (2.5-4.5) mg/dL Magnesium (1.6-2.3) mg/dL Total Bilirubin (0.2-1.3) mg/dL AST (14-36) U/L ALT (9-52) U/L Alkaline Phosphatase (38-126) U/L Troponin I (0.000-0.034) ng/mL NT-Pro-B Natriuret Pep 64 pg/mL Total Protein (6.3-8.2) g/dL Albumin (3.5-5.0) g/dL Urine Color Urine Appearance (Clear) Urine pH (5.0-8.0) Ur Specific [place] (1.001-1.035) Urine Protein (Negative) Urine Glucose (UA) (Negative) Urine Ketones (Negative) Urine Blood (Negative) Urine Nitrite (Negative) Urine Bilirubin (Negative) Urine Urobilinogen (<2.0) mg/dL Ur Leukocyte Esterase (Negative) Urine RBC (0-5) /hpf Urine WBC (0-5) /hpf Ur Squamous Epith Cells (0-4) /hpf Urine Bacteria (None) /hpf Urine Mucus (None) /hpf - Radiology Data Radiology results: report reviewed (CT brain C-spine negative for acute disease), image reviewed Disposition Clinical Impression: Fall, Head injury Disposition: HOME SELF-CARE Condition: Good Instructions (If sedation given, give patient instructions): Fall Prevention for Older Adults (ED), Head Injury (ED), Concussion (ED) Is patient prescribed a controlled substance at d/c from ED?: No Referrals: Helio Mott MD [Primary Care Provider] - 1-2 days
[2018-10-06 10:43] LABS: Basophils # (A) 0.1 k/uL (0-0.2); Basophils % (A) 1 %; Eosinophils # (A) 0.1 k/uL (0-0.7); Eosinophils % (A) 2 %; HCT 41.5 % (34.0-46.0); HGB 13.5 gm/dL (11.4-16.0); Lymphocytes % (A) 14 %; MCH 28.5 pg (25.0-35.0); MCHC 32.5 g/dL (31.0-37.0); MCV 87.8 fL (80.0-100.0); Mean Platelet Volume 7.2; Monocytes # (A) 0.3 k/uL (0-1.0); Monocytes % (A) 5 %; Neutrophils % (A) 76 %; Platelet Count 287 k/uL (150-450); RBC 4.73 m/uL (3.80-5.40); RDW 14.9 % (11.5-15.5); WBC 6.7 k/uL (3.8-10.6)
[2018-10-06 10:53] LABS: INR 0.9 (<1.2); Partial Thromboplastin Time 22.6 sec (22.0-30.0); Prothrombin Time 9.8 sec (9.0-12.0)
[2018-10-06 10:54] LABS: Albumin 4.2 g/dL (3.5-5.0); Calcium 9.3 mg/dL (8.4-10.2); Magnesium 2.1 mg/dL (1.6-2.3); Phosphorus 3.7 mg/dL (2.5-4.5); Potassium 4.8 mmol/L (3.5-5.1); Total Bilirubin 0.4 mg/dL (0.2-1.3); Total Protein 6.6 g/dL (6.3-8.2)
--- NOTE | 2018-10-06 11:13 | CT ---
EXAMINATION TYPE: CT brain clarence leroy DATE OF EXAM: 10/06/2018 COMPARISON: Previous CT scan of the brain dated 12/13/2017. HISTORY: Fall/head pain CT DLP: 1156.6 mGycm Automated exposure control for dose reduction was used. TECHNIQUE: CT scan of the head and cervical spine are performed without contrast. FINDINGS: BRAIN: There are generalized changes of sulcal prominence and ventriculomegaly, compatible with atrop hic change. There is diffuse periventricular white matter lucency, compatible small vessel ischemic c hange. The patient's lacunar infarction in the external capsule on the right is less clearly visualiz ed on today's examination. There is no new focal lesion, mass effect or midline shift. I do not see e vidence of intracranial blood. Visualized portions of the paranasal sinuses and mastoids are clear. The bony calvarium is intact. IMPRESSION: 1. NO ACUTE INTRACRANIAL ABNORMALITY. 2. 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 3. ATROPHIC AND CHRONIC ISCHEMIC CHANGE. CERVICAL SPINE: Visualized portions of the lungs are clear. Prevertebral soft tissues appear normal. There is a mild reversal of the normal cervical lordosis which is replaced by mild kyphosis. There is a mild, grade 1 antegrade listhesis of C4 on C5 and retrograde listhesis of C5 on C6 and C6 on C7. A lignment is otherwise maintained. Atlantoaxial relationships are normal. There is degenerative disc disease and hypertrophic spondylosis at all levels within the spine with r elative sparing of C2-3. There is uncovertebral joint disease at these levels. There is facet arthrop athy on the right at C2-3 and bilaterally at C3-4 and C4-5. No definite protrusion is seen. No fractu re is identified. IMPRESSION: 1. NO ACUTE OSSEOUS LESION. 2. MODERATE DEGENERATIVE CHANGE.
[2018-10-06 11:15] LABS: Appearance,Urine Clear (Clear); Bacteria,Urine Moderate /hpf; Bilirubin,Urine Negative (Negative); Blood,Urine Negative (Negative); Color,Urine Yellow; Glucose,Urine (UA) Negative (Negative); Ketones,Urine Negative (Negative); Leukocyte Esterase,Urine Large (Negative); Mucus,Urine Rare /hpf; Nitrite,Urine Negative (Negative); Protein,Urine Negative (Negative); RBC,Urine 1 /hpf (0-5); Specific Gravity,Urine 1.013 (1.001-1.035); Squamous Epithelial Cell,Urine 2 /hpf (0-4); Urobilinogen,Urine <2.0 mg/dL (<2.0); WBC,Urine 41 /hpf (0-5)
[2018-10-06] MEDS ORDERED: cefTRIAXone IN SWFI 1,000 MG/10 ML SYRINGE IVP STA (12:18)
[2018-10-06 12:53] VITALS: BP 164/72; PULSE 67; TEMP 97.7
== END 2018-10-06 12:53 | disposition home or self-care (01) ==
LOC: EC 09:18
DX: S09.90XA Unspecified injury of head, initial encounter (principal); R29.6 Repeated falls; F31.9 Bipolar disorder, unspecified; F41.9 Anxiety disorder, unspecified; F17.200 Nicotine dependence, unspecified, uncomplicated; Z79.899 Other long term (current) drug therapy; W19.XXXA Unspecified fall, initial encounter
CPT/HCPCS: 36415; 93005; 83880; 80053; 83605; 83735; 84100; 84484; 85025; 85610; 85730; 81001; 87086; 72125; 70450; 99284; 96374; 96361 ×2; J0696; 87077; 87186

== ENCOUNTER 2019-01-02 13:16 | Observation (INO) | payer MEDICARE, OTHER ==
[2019-01-02] MEDS ORDERED: LORazepam 1 MG TAB PO STA (14:32)
[2019-01-02 14:54] LABS: African American GFR (CKD) 69 (>60 ml/min/1.73 sqM); Alcohol <10 mg/dL; Anion Gap 8 mmol/L; Blood Urea Nitrogen 13 mg/dL (7-17); Calcium 9.6 mg/dL (8.4-10.2); Carbon Dioxide 26 mmol/L (22-30); Chloride 106 mmol/L (98-107); Glucose 87 mg/dL (74-99); Potassium 4.3 mmol/L (3.5-5.1); Sodium 140 mmol/L (137-145)
--- NOTE | 2019-01-02 15:05 | ED ---
General Adult HPI - General Source: patient, family Mode of arrival: ambulatory Limitations: no limitations <TipAliciapao Levine - Last Filed: 01/02/19 16:04> <Mario Shaffer - Last Filed: 01/02/19 21:18> - General Chief complaint: Psychiatric Symptoms Stated complaint: hallucinations, Shakiness Time Seen by Provider: 01/02/19 13:31 - History of Present Illness Initial comments: Dictation was produced using [employer] dictation software. please excuse any grammatical, word or spelling errors. Chief Complaint: 78-year-old female presents with chief complaint of uncontrollable upper be shaking. History of Present Illness: Patient is 78-year-old female she has past medical history of psychiatric disease. Patient is a poor historian. She is brought in by neighbor. Patient has history of many mental breakdowns according to the neighbor. Patient is a poor historian. She has been uncontrollable shaking to her body since yesterday. Patient denies having anything like this before. She feels like anxious. Denies any numbness tingling weakness or paresthesias to extremities. The ROS documented in this emergency department record has been reviewed and confirmed by me. Those systems with pertinent positive or negative responses have been documented in the HPI. All other systems are other negative and/or noncontributory. PHYSICAL EXAM: General Impression: Alert and oriented x3, not in acute distress HEENT: Normocephalic atraumatic, extra-ocular movements intact, pupils equal and reactive to light bilaterally, mucous membranes moist. Cardiovascular: Heart regular rate and rhythm, S1&S2 audible, no murmurs, rubs or gallops Chest: Lungs clear to auscultation bilaterally, no rhonchi, no wheeze, no rales Abdomen: Bowel sounds present, abdomen soft, non-tender, non-distended, no organomegaly Musculoskeletal: Pulses present and equal in all extremities, no peripheral edema Motor: no focal deficits noted Neurological: CN II-XII grossly intact, no focal motor or sensory deficits noted, voluntary shaking that is gone with intention. Skin: Intact with no visualized rashes Psych: Anxious ED course: 78-year-old female presents with chief complaint of upper extremity tremors. Patient discharged is voluntary. She appears slightly anxious. Clinical presentation concerning for anxiety reaction. Vital signs upon arrival are within acceptable limits. Physical examination is otherwise benign.patient care signed out to Dr. Shaffer. (Malik Whelan) - Related Data Home Medications Medication Instructions Recorded Confirmed ARIPiprazole [Abilify] 2 mg PO DAILY 07/17/17 01/02/19 ALPRAZolam [Xanax] 0.5 mg PO TID PRN 01/02/19 01/02/19 lamoTRIgine [LaMICtal] 150 mg PO DAILY 01/02/19 01/02/19 lamoTRIgine [LaMICtal] 200 mg PO HS 01/02/19 01/02/19 Allergies Allergy/AdvReac Type Severity Reaction Status Date / Time No Known Allergies Allergy Verified 01/02/19 13:28 Review of Systems ROS Other: All systems not noted in ROS Statement are negative. <Malik Whelan - Last Filed: 01/02/19 16:04> ROS Other: All systems not noted in ROS Statement are negative. <Mario Shaffer - Last Filed: 01/02/19 21:18> ROS Statement: Those systems with pertinent positive or pertinent negative responses have been documented in the HPI. Past Medical History Past Medical History: COPD, GERD/Reflux, Osteoarthritis (OA), Pneumonia, Renal Disease Additional Past Medical History / Comment(s): falls, uses walker,diverticulosis, rib removed during nephrectomy. History of Any Multi-Drug Resistant Organisms: None Reported Past Surgical History: Bowel Resection, Hysterectomy, Orthopedic Surgery Additional Past Surgical History / Comment(s): left kidney removed as a teen d/t infection,exploratory lap in past-unsure what for.Low anterior resection for diverticulosis, partial lt masectomy but found out it wasn't cancer, cataracts,colonoscopy, rt ear sx Past Anesthesia/Blood Transfusion Reactions: Previous Problems w/ Anesthesia Additional Past Anesthesia/Blood Transfusion Reaction / Comment(s): had worsening psych. issues after last surgery-thought might be from anesthesia Past Psychological History: Anxiety, Bipolar, Depression, Panic Disorder Smoking Status: Current some day smoker Past Alcohol Use History: Rare Past Drug Use History: None Reported - Past Family History Father Family Medical History: Cancer Mother Family Medical History: Cancer <Malik Whelan - Last Filed: 01/02/19 16:04> General Exam Limitations: no limitations <Malik Whelan - Last Filed: 01/02/19 16:04> Course Vital Signs 01/02/19 01/02/19 13:22 19:25 Temperature 98.6 F 98.3 F Pulse Rate 98 72 Respiratory 18 14 Rate Blood Pressure 146/70 141/70 O2 Sat by Pulse 96 98 Oximetry Medical Decision Making - Lab Data Result diagrams: 01/02/19 14:45 01/02/19 14:45 <Malik Whelan - Last Filed: 01/02/19 16:04> - Lab Data Result diagrams: 01/02/19 14:45 01/02/19 14:45 <Mario Shaffer - Last Filed: 01/02/19 21:18> - Medical Decision Making The patient was endorsed me at our shift change pending evaluation by psychiatry. Patient did have evidence of altered mental status. Differential includes secondary to medication versus UTI. Case was discussed with Dr. Licona as well as with psychiatry patient be admitted for medical evaluation as well as the inpatient psychiatric evaluation. Patient be started on IV antibiotics in addition to fluids. (Mario Shaffer) - Lab Data Lab Results 01/02/19 01/02/19 01/02/19 Range/Units 14:45 14:45 18:00 WBC 5.6 (3.8-10.6) k/uL RBC 4.49 (3.80-5.40) m/uL Hgb 12.7 (11.4-16.0) gm/dL Hct 39.8 (34.0-46.0) % MCV 88.8 (80.0-100.0) fL MCH 28.4 (25.0-35.0) pg MCHC 32.0 (31.0-37.0) g/dL RDW 14.7 (11.5-15.5) % Plt Count 269 (150-450) k/uL Neutrophils % 77 % Lymphocytes % 14 % Monocytes % 5 % Eosinophils % 2 % Basophils % 1 % Neutrophils # 4.3 (1.3-7.7) k/uL Lymphocytes # 0.8 L (1.0-4.8) k/uL Monocytes # 0.3 (0-1.0) k/uL Eosinophils # 0.1 (0-0.7) k/uL Basophils # 0.0 (0-0.2) k/uL Sodium 140 (137-145) mmol/L Potassium 4.3 (3.5-5.1) mmol/L Chloride 106 (98-107) mmol/L Carbon Dioxide 26 (22-30) mmol/L Anion Gap 8 mmol/L BUN 13 (7-17) mg/dL Creatinine 0.93 (0.52-1.04) mg/dL Est GFR (CKD-EPI)AfAm 69 (>60 ml/min/1.73 sqM) Est GFR (CKD-EPI)NonAf 60 (>60 ml/min/1.73 sqM) Glucose 87 (74-99) mg/dL Calcium 9.6 (8.4-10.2) mg/dL Total Bilirubin 0.3 (0.2-1.3) mg/dL AST 23 (14-36) U/L ALT 17 (9-52) U/L Alkaline Phosphatase 147 H (38-126) U/L Total Protein 6.2 L (6.3-8.2) g/dL Albumin 3.9 (3.5-5.0) g/dL Lipase 26 (23-300) U/L Urine Color Urine Appearance (Clear) Urine pH (5.0-8.0) Ur Specific [place] (1.001-1.035) Urine Protein (Negative) Urine Glucose (UA) (Negative) Urine Ketones (Negative) Urine Blood (Negative) Urine Nitrite (Negative) Urine Bilirubin (Negative) Urine Urobilinogen (<2.0) mg/dL Ur Leukocyte Esterase (Negative) Urine RBC (0-5) /hpf Urine WBC (0-5) /hpf Ur Squamous Epith Cells (0-4) /hpf Urine Bacteria (None) /hpf Hyaline Casts (0-2) /lpf Urine Mucus (None) /hpf Urine Opiates Screen Not Detected (NotDetected) Ur Oxycodone Screen Not Detected (NotDetected) Urine Methadone Screen Not Detected (NotDetected) Ur Propoxyphene Screen Not Detected (NotDetected) Ur Barbiturates Screen Not Detected (NotDetected) U Tricyclic Antidepress Not Detected (NotDetected) Ur Phencyclidine Scrn Not Detected (NotDetected) Ur Amphetamines Screen Not Detected (NotDetected) U Methamphetamines Scrn Not Detected (NotDetected) U Benzodiazepines Scrn Detected H (NotDetected) Urine Cocaine Screen Not Detected (NotDetected) U Marijuana (THC) Screen Not Detected (NotDetected) Serum Alcohol <10 mg/dL 01/02/19 Range/Units 18:15 WBC (3.8-10.6) k/uL RBC (3.80-5.40) m/uL Hgb (11.4-16.0) gm/dL Hct (34.0-46.0) % MCV (80.0-100.0) fL MCH (25.0-35.0) pg MCHC (31.0-37.0) g/dL RDW (11.5-15.5) % Plt Count (150-450) k/uL Neutrophils % % Lymphocytes % % Monocytes % % Eosinophils % % Basophils % % Neutrophils # (1.3-7.7) k/uL Lymphocytes # (1.0-4.8) k/uL Monocytes # (0-1.0) k/uL Eosinophils # (0-0.7) k/uL Basophils # (0-0.2) k/uL Sodium (137-145) mmol/L Potassium (3.5-5.1) mmol/L Chloride (98-107) mmol/L Carbon Dioxide (22-30) mmol/L Anion Gap mmol/L BUN (7-17) mg/dL Creatinine (0.52-1.04) mg/dL Est GFR (CKD-EPI)AfAm (>60 ml/min/1.73 sqM) Est GFR (CKD-EPI)NonAf (>60 ml/min/1.73 sqM) Glucose (74-99) mg/dL Calcium (8.4-10.2) mg/dL Total Bilirubin (0.2-1.3) mg/dL AST (14-36) U/L ALT (9-52) U/L Alkaline Phosphatase (38-126) U/L Total Protein (6.3-8.2) g/dL Albumin (3.5-5.0) g/dL Lipase (23-300) U/L Urine Color Light Yellow Urine Appearance Clear (Clear) Urine pH 7.0 (5.0-8.0) Ur Specific [place] 1.006 (1.001-1.035) Urine Protein Negative (Negative) Urine Glucose (UA) Negative (Negative) Urine Ketones Negative (Negative) Urine Blood Negative (Negative) Urine Nitrite Negative (Negative) Urine Bilirubin Negative (Negative) Urine Urobilinogen <2.0 (<2.0) mg/dL Ur Leukocyte Esterase Small H (Negative) Urine RBC <1 (0-5) /hpf Urine WBC 10 H (0-5) /hpf Ur Squamous Epith Cells 1 (0-4) /hpf Urine Bacteria Moderate H (None) /hpf Hyaline Casts 1 (0-2) /lpf Urine Mucus Rare H (None) /hpf Urine Opiates Screen (NotDetected) Ur Oxycodone Screen (NotDetected) Urine Methadone Screen (NotDetected) Ur Propoxyphene Screen (NotDetected) Ur Barbiturates Screen (NotDetected) U Tricyclic Antidepress (NotDetected) Ur Phencyclidine Scrn (NotDetected) Ur Amphetamines Screen (NotDetected) U Methamphetamines Scrn (NotDetected) U Benzodiazepines Scrn (NotDetected) Urine Cocaine Screen (NotDetected) U Marijuana (THC) Screen (NotDetected) Serum Alcohol mg/dL Disposition <Malik Whelan - Last Filed: 01/02/19 16:04> <Mario Shaffer - Last Filed: 01/02/19 21:18> Clinical Impression: Delirium due to general medical condition, Urinary tract infection Disposition: ADMITTED IP TO THIS HOSP Condition: Fair Referrals: Helio Mott MD [Primary Care Provider] - 1-2 days
[2019-01-02 15:18] LABS: Basophils % (A) 1 %; Eosinophils # (A) 0.1 k/uL (0-0.7); Eosinophils % (A) 2 %; HCT 39.8 % (34.0-46.0); HGB 12.7 gm/dL (11.4-16.0); Lymphocytes # (A) 0.8 k/uL (1.0-4.8); Lymphocytes % (A) 14 %; MCH 28.4 pg (25.0-35.0); MCV 88.8 fL (80.0-100.0); Mean Platelet Volume 7.4; Monocytes # (A) 0.3 k/uL (0-1.0); Monocytes % (A) 5 %; Neutrophils # (A) 4.3 k/uL (1.3-7.7); Neutrophils % (A) 77 %; Platelet Count 269 k/uL (150-450); RBC 4.49 m/uL (3.80-5.40); RDW 14.7 % (11.5-15.5); WBC 5.6 k/uL (3.8-10.6)
--- NOTE | 2019-01-02 16:14 | XR ---
EXAMINATION TYPE: XR abdomen acute w cxr DATE OF EXAM: 01/02/2019 CLINICAL HISTORY: Pain per order. TECHNIQUE: Single frontal view of chest is obtained. Supine and upright views of the abdomen are acq uired. COMPARISON: Chest x-ray December 13, 2017. CT abdomen and pelvis from 2014. FINDINGS: The lungs are grossly clear without pleural effusion or pneumothorax. Cardiac silhouette size remains within normal limits with atherosclerotic change in aortic knob redemonstrated. Degenera tive change both shoulders is seen. Gas is noted in nondistended small bowel loops. Gas and fecal material is seen in nondistended colon . Metallic hardware from left hip arthroplasty is now present. Advanced degenerative changes in right hip with marked narrowing and moderate spurring. Sutures overlie the pelvis. No pneumoperitoneum. IMPRESSION: 1. No acute pulmonary process. 2. Overall nonobstructive bowel gas pattern.
[2019-01-02 18:39] LABS: ALT 17 U/L (9-52); AST 23 U/L (14-36); Albumin 3.9 g/dL (3.5-5.0); Alkaline Phosphatase 147 U/L (38-126); Total Bilirubin 0.3 mg/dL (0.2-1.3); Total Protein 6.2 g/dL (6.3-8.2)
[2019-01-02 18:40] LABS: Appearance,Urine Clear (Clear); Bacteria,Urine Moderate /hpf; Bilirubin,Urine Negative (Negative); Blood,Urine Negative (Negative); Color,Urine Light Yellow; Glucose,Urine (UA) Negative (Negative); Hyaline Casts,Urine 1 /lpf (0-2); Ketones,Urine Negative (Negative); Leukocyte Esterase,Urine Small (Negative); Mucus,Urine Rare /hpf; Nitrite,Urine Negative (Negative); Protein,Urine Negative (Negative); RBC,Urine <1 /hpf (0-5); Specific Gravity,Urine 1.006 (1.001-1.035); Squamous Epithelial Cell,Urine 1 /hpf (0-4); Urobilinogen,Urine <2.0 mg/dL (<2.0)
[2019-01-02 19:08] LABS: Amphetamine Screen,Urine Not Detected (NotDetected); Barbiturate Screen,Urine Not Detected (NotDetected); Benzodiazepines Screen,Urine Detected (NotDetected); Cocaine Screen,Urine Not Detected (NotDetected); Methadone Screen, Urine Not Detected (NotDetected); Opiate Screen,Urine Not Detected (NotDetected); Oxycodone Screen, Urine Not Detected (NotDetected); Phencyclidine Screen,Urine Not Detected (NotDetected); Tricyclic Antidepressant,Urine Not Detected (NotDetected); Urn Cannabinoid Scrn Not Detected (NotDetected)
[2019-01-02] MEDS ORDERED: cefTRIAXone IN SWFI 1,000 MG/10 ML SYRINGE IVP STA (20:34)
[2019-01-02] MEDS ORDERED: NALOXONE 0.4 MG/ML 1 ML VIAL IV PRN (21:26)
[2019-01-02] MEDS: SODIUM CHLORIDE 0.9% 1,000 ML IV SCH (22:05)
[2019-01-03] MEDS ORDERED: cefTRIAXone IN SWFI 1,000 MG/10 ML SYRINGE IVP SCH (09:00)
[2019-01-03] MEDS ORDERED: ARIPiprazole 2 MG TAB PO SCH (09:00)
[2019-01-03] MEDS: lamoTRIgine 100 MG TAB PO SCH (09:05)
[2019-01-03] MEDS: SODIUM CHLORIDE 0.9% 1,000 ML IV SCH ×2 (12:16→22:35)
--- NOTE | 2019-01-03 14:19 | P.HPIM ---
History of Present Illness H&P Date: 01/03/19 Chief Complaint: Tremors, hallucinations This is a 78-year-old female who lives in [facility] ,brought in by a neighbor as patient had uncontrollable shaking of upper extremities, anxiety, in a patient with history of anxiety, bipolar, depression, panic disorder, nicotine dependence and multiple other medical issues. Patient verbalizes that she is majorly concerned over her son not being compliant with his home medication regime and that he might end up with a stroke. Denies chest pain, palpitations or shortness of breath. Denies lightheadedness dizziness or focal deficits. Denies any numbness, tingling, or weakness. During sleep, and at rest, no tremors. Upon entering the room, patient's tremors started-upper extremity. Vital signs stable. Afebrile, normal WBC, maintaining O2 sats in the 90s on room air. Toxicology screen reporting benzodiazepines. UA reporting moderate urine bacteria with urine WBC 10, small amount of leukocytes, urine screen pending. BUN 13 creatinine 0.93.Currently receiving IV antibiotics for potential acute UTI. Psychiatry consulted with recommendations pending. Review of Systems ROS Other: All systems not noted in ROS Statement are negative. ROS Statement: Those systems with pertinent positive or pertinent negative responses have been documented in the HPI. Past Medical History Past Medical History: COPD, GERD/Reflux, Osteoarthritis (OA), Pneumonia, Renal Disease Additional Past Medical History / Comment(s): falls, uses walker,diverticulosis, rib removed during nephrectomy. History of Any Multi-Drug Resistant Organisms: None Reported Past Surgical History: Bowel Resection, Hysterectomy, Orthopedic Surgery Additional Past Surgical History / Comment(s): left kidney removed as a teen d/t infection,exploratory lap in past-unsure what for.Low anterior resection for div erticulosis, partial lt masectomy but found out it wasn't cancer, cataracts,colonoscopy, rt ear sx Past Anesthesia/Blood Transfusion Reactions: Previous Problems w/ Anesthesia Additional Past Anesthesia/Blood Transfusion Reaction / Comment(s): had wo rsening psych. issues after last surgery-thought might be from anesthesia Past Psychological History: Anxiety, Bipolar, Depression, Panic Disorder Additional Psychological History / Comment(s): pt lives at [facility]. uses a walker, uses public bus to get to appts. Smoking Status: Current some day smoker Past Alcohol Use History: Rare Additional Past Alcohol Use History / Comment(s): started smoking at age 15, does not smoke much anymore Past Drug Use History: None Reported - Past Family History Father Family Medical History: Cancer Mother Family Medical History: Cancer Medications and Allergies Home Medications Medication Instructions Recorded Confirmed Type ARIPiprazole [Abilify] 2 mg PO DAILY 07/17/17 01/02/19 History ALPRAZolam [Xanax] 0.5 mg PO TID PRN 01/02/19 01/02/19 History lamoTRIgine [LaMICtal] 150 mg PO DAILY 01/02/19 01/02/19 History lamoTRIgine [LaMICtal] 200 mg PO HS 01/02/19 01/02/19 History Allergies Allergy/AdvReac Type Severity Reaction Status Date / Time No Known Allergies Allergy Verified 01/02/19 13:28 Physical Exam Vitals: Vital Signs Temp Pulse Pulse Resp BP BP Pulse Ox 01/03/19 04:40 97.6 F 64 20 154/73 95 01/02/19 23:05 97.9 F 66 16 128/75 01/02/19 22:14 97.7 F 71 16 161/78 97 01/02/19 19:25 98.3 F 72 14 141/70 98 Intake and Output 01/02/19 01/03/19 01/03/19 22:59 06:59 14:59 Intake Total 200 Balance 200 Intake: Oral 200 Other: Voiding Method Bedside Commode # Voids 1 PHYSICAL EXAM: VITAL SIGNS: As above GENERAL: Sitting up in bed, no acute distress. Upper extremity tremors began after I walked in the room. HEENT: Conjunctivae normal. eyes normal. Oral mucosa moist NECK: No JVD. No thyroid enlargement. No LNs CARDIOVASCULAR: S1, S2 regular.. No murmur RESPIRATION: Breath sounds diminished in the bases. No rhonchi or crackles. No bronchial breathing. ABDOMEN: Soft, nontender . No guarding. no masses palpable. No ascites, No he patosplenomegaly.Bowel sounds heard. LEGS: No edema. no swelling PSYCHIATRY: Alert and oriented X3, mood and affect anxious, depressed, teary- eyed at times NERVOUS SYSTEM: Cranial N 2-12 grossly normal. Moves all 4 limbs. No focal deficits. Strength and sensation grossly intact.. Skin: no lesions, no rash Joints: No active swelling. No inflammation. Lymphatic system. No LN neck axilla or groin. Results CBC & Chem 7: 01/02/19 14:45 01/02/19 14:45 Labs: Abnormal Lab Results - Last 24 Hours (Table) 01/02/19 01/02/19 01/02/19 Range/Units 14:45 14:45 18:00 Lymphocytes # 0.8 L (1.0-4.8) k/uL Alkaline Phosphatase 147 H (38-126) U/L Total Protein 6.2 L (6.3-8.2) g/dL Ur Leukocyte Esterase (Negative) Urine WBC (0-5) /hpf Urine Bacteria (None) /hpf Urine Mucus (None) /hpf U Benzodiazepines Scrn Detected H (NotDetected) 01/02/19 Range/Units 18:15 Lymphocytes # (1.0-4.8) k/uL Alkaline Phosphatase (38-126) U/L Total Protein (6.3-8.2) g/dL Ur Leukocyte Esterase Small H (Negative) Urine WBC 10 H (0-5) /hpf Urine Bacteria Moderate H (None) /hpf Urine Mucus Rare H (None) /hpf U Benzodiazepines Scrn (NotDetected) Microbiology - Last 24 Hours (Table) 01/02/19 18:00 Urine Culture - Preliminary Urine,Voided Thrombosis Risk Factor Assmnt - Choose All That Apply Each Factor Represents 1 point: Abnormal pulmonary function (COPD) Each Risk Factor Represents 3 Points: Age 75 years or older Thrombosis Risk Factor Assessment Total Risk Factor Score: 4 Thrombosis Risk Factor Assessment Level: Moderate Risk Assessment and Plan Assessment: -Acute delirium, acute metabolic, possible toxic encephalopathy possibly medication induced, possible acute UTI, urine screen pending -Attention tremors -Anxiety -Bipolar, depression, under psychiatric care with Dr. Mayberry -Panic disorder -Ongoing nicotine dependence -COPD, stable, no acute exacerbation -Gastroesophageal reflux disease -Osteoarthritis -Toxicology screen reporting benzos Plan: Continue on current medication regime ,monitoring and symptomatic treatment. Converted IV antibiotics over to by mouth. Patient has been medical ly cleared for discharge to mental health unit. Further recommendations to follow. The impression and plan of care has been dictated as directed. : I performed a history and examination of this patient, discussed the same with the dictator. I agree with the dictator's note ,documented as a scribe. Any additional findings or plans will be noted. Time Taken: 35 min.
--- NOTE | 2019-01-03 15:21 | P.CN ---
Psychiatric Consult - . Consult date: 01/03/19 Consult:: 01/03/19 15:14 IDENTIFYING DATA: This patient is a 78-year-old female with a history of anxiety disorder, bipolar who currently lives in a senior's apartment home and has 2 sons however one is and is retired. HISTORY OF PRESENT ILLNESS: The patient was brought into the hospital by one of her neighbors as she claims that she was shaking uncontrollably in her upper and lower extremities. Patient was found to have altered mental status and a UTI and was admitted to medicine for treatment. Psychiatry was consulted for medication management. Patient was seen at the bedside and appeared to be calm and cooperative during the interview. Patient claims that for the past 2 days she has been shaking more than usual states that this has been a chronic thing and has been associated with her anxiety. Patient was noted during the evaluation to be shaking more when discussing her stressors at home. She states that she is dealing with one of her sons who is not very trustworthy and isn't getting into many fights with him and patient claims that that he has been abusing substances ankle and patient states that she may be going to intermediate if he doesn't change his behaviors. Patient endorses multiple worries and states that she has been feeling worried and anxious for a lot of her life. She speaks of having a fair mood, denies any depression and claims to have a good appetite and sleeps well at night. Patient states that she is been following up with Dr. Mayberry psychiatrist who recently prescribed her Abilify and she states that she just started taking it right before her shaking symptoms began. Patient claims that now her shaking in her upper extremities have mildly improved and states that she needs to use a walker to walk.. At this time patient denies any suicidal or homical ideations, intent or plan. Patient denies any auditory, visual hallucinations and denies any paranoia or delusions. PAST PSYCHIATRIC HISTORY: Patient follows up with Dr. Mayberry outpatient psychiatrist and is currently taking Abilify, Lamictal and Xanax. Patient has a history of bipolar disorder, anxiety and depression. Patient states that she is had multiple hospitalizations in the past the most previous one was in April 2014. She admits to one suicide attempt in the past when she was 31 years old when she tried to run into traffic. PAST MEDICAL HISTORY: Denies. ALLERGIES: No known drug allergies. CHEMICAL DEPENDENCY HISTORY: States that she did abuse alcohol in her 30s however quit since then. She denies using any other recreational substances including marijuana and alcohol and denies any cigarette use.. FAMILY PSYCHIATRIC/SUBSTANCE USE HISTORY: denies. SOCIAL HISTORY: Patient currently lives in a seniors apartment in [place] alone, had 2 sons however when . 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 MENTAL STATUS EXAM: General Appearance: Patient appears to be stated age is alert, pleasant, and cooperative. Patient did appear anxious and was trembling in her upper extremities. Behavior: Patient is lying in bed trembling at times. Speech: Patient's speech is fluent and nonpressured. Hyperverbal at times. Mood/Affect: Patient reports their mood is "alright", affect is congruent and appears anxious. Suicidality/Homicidality: Patient denies having any suicidal or homicidal ideation intent or plan. Perceptions: Patient denies any auditory or visual hallucinations. Though content/process: There is no evidence of any delusional thought content and thought process is linear and goal-directed. Memory and concentration: AOX3, grossly intact for the purposes of this session. Can spell "WORLD" backwards Judgment and insight: fair IMPRESSIONS: Generalized anxiety disorder History of bipolar disorder type I PLAN: -At this time patient patient does NOT meet criteria for inpatient psychiatric admission. -Would recommend the following medication changes/additions: Patient likely has been suffering from a acute adverse effect from the addition of Abilify as Abilify is known to cause tremors and an increase in anxiety in some patients. Discontinued Abilify at this time and patient can remain on her home dose of Lamictal and Xanax. Discussed with patient about starting another medication for her anxiety, patient was agreeable to start BuSpar 15 mg twice a day with 1 dose now. This medication can be titrated up as an outpatient to help with anxiety. -Patient has a outpatient psychiatrist, Dr. Mayberry whom she can follow up wit h. I instructed her to make a follow-up appointment within a few days. -I also discussed with patient an idea of asking pharmacy to dispense her medications in a blister pack to prevent confusion between medications as patient does not know what pills she is taking and at what dose or what frequency and has multiple bottles. -PT/OT recommended. -Psychiatry will sign off at this point Thank you for the consult 01/03/19 15:21
[2019-01-03] MEDS: busPIRone HCl 5 MG TAB PO SCH ×2 (15:23→20:37)
[2019-01-03] MEDS: CIPROFLOXACIN HCL 500 MG TAB PO SCH ×2 (15:23→20:37)
[2019-01-03] MEDS ORDERED: lamoTRIgine 100 MG TAB PO SCH (21:00)
[2019-01-03 21:40] VITALS: PULSE 67
[2019-01-04] MEDS ORDERED: ALPRAZolam 0.5 MG TAB PO PRN (00:11)
[2019-01-04 06:31] VITALS: BP 175/74; RESP 18; TEMP 97.4
[2019-01-04] MEDS: lamoTRIgine 100 MG TAB PO SCH (07:59)
[2019-01-04] MEDS: CIPROFLOXACIN HCL 500 MG TAB PO SCH (07:59)
[2019-01-04] MEDS: busPIRone HCl 5 MG TAB PO SCH (08:00)
--- NOTE | 2019-01-04 11:41 | P.DS ---
Providers Date of admission: 01/02/19 21:26 Expected date of discharge: 01/04/19 Attending physician: Helio Mott Consults: 01/02/19 21:34 Consult Physician Routine Consulting Provider: Ezekiel Phillips Consult Reason/Comments: Altered mental status Do you want consulting provider notified?: Yes, Notify in am Primary care physician: Helio Mott Hospital Course: Patient was admitted the emergency room for urinary tract infection And significant anxiety disorder with depression Caused by anxiety and significant tremors General: [Patient awake, alert and oriented times 3. Patient in no acute distress.] HEENT: [PERRL. EOMI. No pharyngeal erythema or exudate.] Neck: [No adenopathy.] Cardiac: [Heart regular in rate and rhythm. No S3. No S4. No clicks, rubs. No murmur.] Lungs: [Clear to auscultation bilaterally.] Abdomen: [No mass. No organomegaly. Bowel sounds presnt and normoactive in all 4 quadrants.] Extremes: [No edema no cyanosis no claudication normal pulses] : Normal female genitalia Musculoskeletal: [No joint erythema, edema or tenderness.] Skin: [No rash.] Neurologic: [No lateralizing deficits. CN II - XII grossly intact.] Lymphatic: [No adenopathy.] Health Concerns: There was a concern by psychiatry that Abilify was increasing intention tremors decision was made to stop this and trial BuSpar 10 mg twice daily for anxiety Patient Condition at Discharge: Fair Plan - Discharge Summary Discharge Rx Participant: No New Discharge Prescriptions: New Ciprofloxacin HCl [Cipro] 500 mg PO Q12HR #10 tablet Discontinued ARIPiprazole [Abilify] 2 mg PO DAILY No Action lamoTRIgine [LaMICtal] 150 mg PO DAILY lamoTRIgine [LaMICtal] 200 mg PO HS ALPRAZolam [Xanax] 0.5 mg PO TID PRN PRN Reason: Anxiety Discharge Medication List ALPRAZolam [Xanax] 0.5 mg PO TID PRN 01/02/19 [History] lamoTRIgine [LaMICtal] 150 mg PO DAILY 01/02/19 [History] lamoTRIgine [LaMICtal] 200 mg PO HS 01/02/19 [History] Ciprofloxacin HCl [Cipro] 500 mg PO Q12HR #10 tablet 01/04/19 [Rx] Follow up Appointment(s)/Referral(s): Helio Mott MD [Primary Care Provider] - 1-2 days Yuval Mayberry DO [Doctor of Osteopathic Medicine] - 1 Week Activity/Diet/Wound Care/Special Instructions: HOME MEDS IN PHARMACY!!!!!!!!!!!!!!!
[2019-01-04] MEDS: SODIUM CHLORIDE 0.9% 1,000 ML IV SCH (12:19)
== END 2019-01-04 13:30 | disposition home or self-care (01) ==
LOC: EC 13:16 → 4MS4W 21:26
PROVIDERS: ADMIT Family Medicine; ATTEND Family Medicine
DX: N39.0 Urinary tract infection, site not specified (principal); F05 Delirium due to known physiological condition; F41.9 Anxiety disorder, unspecified; R25.1 Tremor, unspecified; G93.41 Metabolic encephalopathy; F31.9 Bipolar disorder, unspecified; F41.0 Panic disorder [episodic paroxysmal anxiety]; J44.9 Chronic obstructive pulmonary disease, unspecified; K21.9 Gastro-esophageal reflux disease without esophagitis; M19.90 Unspecified osteoarthritis, unspecified site; F17.200 Nicotine dependence, unspecified, uncomplicated; Z87.01 Personal history of pneumonia (recurrent); Z91.81 History of falling; Z79.899 Other long term (current) drug therapy; Z90.5 Acquired absence of kidney; Z90.49 Acquired absence of other specified parts of digestive tract; Z98.49 Cataract extraction status, unspecified eye; Z90.12 Acquired absence of left breast and nipple; Z90.710 Acquired absence of both cervix and uterus; Z80.9 Family history of malignant neoplasm, unspecified
CPT/HCPCS: 96361 ×2; 96374; 99285; 36415; 80053; 83690; 85025; 81001; 87040; 80306; 87086; 87077; 87186; 74022; G0378 ×3; G0480; J0696; 80320

== ENCOUNTER → 2019-07-16 | Outpatient (CLI) | payer MEDICARE, OTHER ==
[2019-07-16 14:34] LABS: Basophils % (A) 1 %; Eosinophils # (A) 0.1 k/uL (0-0.7); Eosinophils % (A) 2 %; HCT 44.1 % (34.0-46.0); HGB 14.4 gm/dL (11.4-16.0); Lymphocytes # (A) 1.3 k/uL (1.0-4.8); Lymphocytes % (A) 22 %; MCH 29.9 pg (25.0-35.0); MCHC 32.7 g/dL (31.0-37.0); MCV 91.5 fL (80.0-100.0); Mean Platelet Volume 7.6; Monocytes # (A) 0.4 k/uL (0-1.0); Monocytes % (A) 7 %; Neutrophils # (A) 3.8 k/uL (1.3-7.7); Neutrophils % (A) 66 %; Platelet Count 263 k/uL (150-450); RBC 4.82 m/uL (3.80-5.40); RDW 12.7 % (11.5-15.5); WBC 5.8 k/uL (3.8-10.6)
[2019-07-16 14:41] LABS: Partial Thromboplastin Time 23.1 sec (22.0-30.0)
[2019-07-16 20:02] LABS: T4, Free (Free Thyroxine) 1.2 ng/dL (0.80-1.80)
[2019-07-16 20:43] LABS: Albumin 4.4 g/dL (3.80-4.90); Albumin/Globulin Ratio 2.32 (1.60-3.17); Anion Gap 10.4 mmol/L (4.00-12.00); BUN/Creat Ratio 26.67 Ratio (12.00-20.00); Calcium 9.6 mg/dL (8.7-10.3); Carbon Dioxide 26.6 mmol/L (21.6-31.8); Globulin 1.9 g/dL (1.6-3.3); Non-African American GFR(CKD) 61.2 (60.0-200.0); Potassium 4.5 mmol/L (3.5-5.5); Total Bilirubin 0.4 mg/dL (0.3-1.2); Total Protein 6.3 g/dL (6.2-8.2)
== END | disposition home or self-care (01) ==
LOC: LABWHC1 13:40
PROVIDERS: ATTEND Family Medicine
DX: H05.232 Hemorrhage of left orbit (principal); T78.40XA Allergy, unspecified, initial encounter; R53.82 Chronic fatigue, unspecified
CPT/HCPCS: 36415; 80053; 84439; 84443; 85025; 85610; 85730

== ENCOUNTER → 2019-12-18 | Outpatient (CLI) | payer MEDICARE, OTHER ==
[2019-12-18 12:01] LABS: HCT 44.6 % (34.0-46.0); MCH 29.4 pg (25.0-35.0); MCHC 31.5 g/dL (31.0-37.0); MCV 93.4 fL (80.0-100.0); Mean Platelet Volume 7.8; Platelet Count 287 k/uL (150-450); RBC 4.77 m/uL (3.80-5.40); RDW 12.6 % (11.5-15.5); WBC 8.4 k/uL (3.8-10.6)
[2019-12-18 19:31] LABS: Erythrocyte Sedimentation Rate 11 mm/Hr (0-30)
[2019-12-18 20:23] LABS: Gliadin AB IgA, Deaminated NEGATIVE (NEGATIVE); Gliadin AB IgA, Unit <0.2 U/mL; Gliadin AB IgG, Deaminated NEGATIVE (NEGATIVE)
== END | disposition home or self-care (01) ==
LOC: LABWHC1 11:34
PROVIDERS: ATTEND Internal Medicine Gastroenterology
DX: R19.7 Diarrhea, unspecified (principal)
CPT/HCPCS: 36415; 83516; 83630; 85027; 85652; 86140; 87045; 87046; 87324; 87328; 87329

== ENCOUNTER 2020-02-13 09:33 | Day surgery (SDC) | payer MEDICARE, OTHER ==
[~2020-02-13 09:33] MED LIST changes: +LIDOCAINE 1% (10MG/ML) FOR IV START INTRADERMA PRN; -LIDOCAINE 1% 20 ML VIAL (10MG/ML) FOR IV START INTRADERMA PRN; -MIDAZOLAM (PF) 2 MG/2 ML VIAL IV PRN
[2020-02-13 10:56] VITALS: RESP 18; TEMP 98
[2020-02-13] MEDS ORDERED: ONDANSETRON 4 MG/2 ML VIAL ONE (11:17)
[2020-02-13] MEDS ORDERED: ONDANSETRON 4 MG/2 ML VIAL IVP ONE (11:20)
[2020-02-13] MEDS ORDERED: MIDAZOLAM 2 MG/2 ML VIAL IV ONE (11:20)
[2020-02-13] MEDS ORDERED: LIDOCAINE 1% INJ 10MG/ML (20 ML MDV) ONE (11:41)
[2020-02-13] MEDS ORDERED: PROPOFOL 10 MG/ML 20 ML VIAL IV ONE (11:41)
--- NOTE | 2020-02-13 12:04 | P.PCN ---
Date of Procedure: 02/13/20 Procedure(s) Performed: Brief history: Patient is a pleasant 79-year-old white female scheduled for an elective upper endoscopy as well as colonoscopy as a part of evaluation of with abdominal pain, change in bowel habits and weight loss for the last 3 year duration. His sigmoid colectomy was 3 years ago and since then has been having the symptoms have been progressively getting worse She has rectal discomfort, intermittent rectal pain and occasional watery diarrhea . Procedure performed: Esophagogastroduodenoscopy with biopsy Colonoscopy with biopsy and snare polypectomy Preoperative diagnosis: Abdominal pain Change in bowel habits and rectal bleeding and based Anesthesia: MAC Procedure: After informed consent was obtained from the patient was brought into the endoscopy unit and IV sedation was administered by anesthesia under continuous monitoring. Initially upper endoscopy was done. The Olympus GF 160 video endoscope was inserted inserted into the mouth and esophagus intubated without any difficulty and was gradually advanced into the stomach and duodenum and carefully examined. The bulb and second part of the duodenum appeared normal. Abscesses were done from the duodenum to rule out celiac disease. The scope was then withdrawn into the stomach adequately insufflated with air and upon careful examination the antrum had mild mottling of the mucosa in the antrum and biopsies were done from this area. The body, cardia and fundus appeared normal. The scope was then withdrawn into the esophagus. The GE junction was located at 40 cm to the incisors. It appeared regular with no erythema erosions or ulcerations. Rest of the esophagus appeared normal. Patient tolerated the procedure well. At this time the patient continued to remain sedation. Initial digital rectal examination was normal. Olympus CF 160 video colonoscope was then inserted into the rectum and gradually advanced to the cecum without any difficulty. Careful examination was performed as the scope was gradually being withdrawn. The prep was excellent. In the cecum where polyps measuring 5 mm and 7 mm in size both of which were removed by snare polypectomy in the ascending colon there were 2 polyps measuring 1 cm and 5 mm in size removed by snare polypectomy rest of the cecum, ascending colon, transverse colon, descending colon, sigmoid colon and rectum appeared normal. Scattered sigmoidal diverticula seen. The anastomosis was located at 50 cm from the anal verge. Random biopsies were done from ascending and descending colon to rule out microscopic/collagenous colitis. Retroflexion was performed in the rectum and no lesions were noted. Patient tolerated the procedure well. Impression: 1. Upper endoscopy revealed mild antral gastritis. 2. Colonoscopy revealed 5 mm and 7 mm cecal polyps status post snare polypectomy. 1 cm and 5 mm and ascending colon polyp status post polypectomy and scattered sigmoid diverticulosis. Recommendations: Findings of this examination were discussed with the patient as well as as a family. She was advised to follow with the biopsy. She'll be seen in office in 2-3 weeks
[2020-02-13 12:20] VITALS: BP 123/69; PULSE 69
== END 2020-02-13 13:10 | disposition home or self-care (01) ==
LOC: ORWHC2ENDO 09:33
PROVIDERS: ATTEND Internal Medicine Gastroenterology
DX: D12.0 Benign neoplasm of cecum (principal); D12.2 Benign neoplasm of ascending colon; K57.30 Diverticulosis of large intestine without perforation or abscess without bleeding; K29.50 Unspecified chronic gastritis without bleeding; Z98.0 Intestinal bypass and anastomosis status; R63.4 Abnormal weight loss; J44.9 Chronic obstructive pulmonary disease, unspecified; N28.9 Disorder of kidney and ureter, unspecified; M19.90 Unspecified osteoarthritis, unspecified site; F41.9 Anxiety disorder, unspecified; F31.9 Bipolar disorder, unspecified; K52.9 Noninfective gastroenteritis and colitis, unspecified; Z79.899 Other long term (current) drug therapy; Z90.49 Acquired absence of other specified parts of digestive tract
CPT/HCPCS: 88305; 45380; 45385; 43239; J2250; J2405; J2001; J2704

== ENCOUNTER → 2020-05-11 | Outpatient (CLI) | payer MEDICARE, OTHER ==
--- NOTE | 2020-05-11 13:22 | CT ---
EXAMINATION TYPE: CT abdomen pelvis wo con DATE OF EXAM: 05/11/2020 COMPARISON: None HISTORY: 80-year-old female K59.00 constipation, R19.[address] DLP: 588 mGycm. Automated exposure control for dose reduction was used. TECHNIQUE: Contiguous axial scanning of the abdomen and pelvis without IV contrast. Coronal and sagit lavon reconstructions performed. FINDINGS: Heart normal size with trace anterior basilar pericardial fluid. Strandy basilar atelectasis. No pleu ral effusion. Tiny calcified granuloma left lower lobe. No pleural effusion. No focal liver lesion. Gallbladder distended to the upper limits of normal at 3.8 cm wide. No surroun ding inflammation. There is a 1.0 cm gallstone noted. Adrenal glands, spleen with small hilar splenule, pancreas appear within normal limits. Tiny 1.2 cm d iverticulum of the second portion of the duodenum projecting into the pancreatic head region. Right kidney is slightly malrotated. No hydronephrosis. Left kidney absent. No dilated small bowel, free fluid, or free air. No mesenteric or retroperitoneal lymphadenopathy. Mild to moderate stool burden. Some mild diverticular change along the transverse colon. No pericolon ic inflammatory change. Appendix not clearly identified. Staple line at the rectosigmoid junction from prior resection and re anastomosis. There seems to be some umbilical ornamentation present. Mild circumferential bladder wall thickening. Uterus surgically absent. Neither ovary clearly visuali zed. Limited visualization of the pelvis due to prominent streak and beam hardening artifact related to the patient's left hip arthroplasty. No abnormal fluid collection or dane pelvic lymphadenopathy seen. Bones: Left hip total arthroplasty. Severe degenerative change of the right hip. Facet arthropathy mi d to lower lumbar spine with grade 1 anterolisthesis at L4-L5. IMPRESSION: 1. Mild to moderate stool burden. Mild diverticular change along the transverse colon. 2. Prior resection and reanastomosis at the rectosigmoid junction. 3. A 1 cm gallstone. Left kidney is absent. 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 4. Mild circumferential bladder wall thickening. Correlate to exclude cystitis.
== END | disposition home or self-care (01) ==
LOC: RADCTMAIN 12:32
PROVIDERS: ATTEND Surgery
DX: K80.20 Calculus of gallbladder without cholecystitis without obstruction (principal); K57.30 Diverticulosis of large intestine without perforation or abscess without bleeding; Q63.2 Ectopic kidney; R93.41 Abnormal radiologic findings on diagnostic imaging of renal pelvis, ureter, or bladder; Z90.5 Acquired absence of kidney; Z98.0 Intestinal bypass and anastomosis status
CPT/HCPCS: 74176

== ENCOUNTER 2020-05-19 07:12 | Day surgery (SDC) | payer MEDICARE, OTHER ==
[2020-05-18 10:22] VITALS: BMI 22.6
[~2020-05-19 07:12] MED LIST changes: +ACETAMINOPHEN TAB 500 MG TAB PO PRN; +HEPARIN SODIUM,PORCINE 5,000 UNIT/ML 1 ML VIAL SQ PRN; -LACTATED RINGERS 1,000 ML IV SCH; -LIDOCAINE 1% (10MG/ML) FOR IV START INTRADERMA PRN
[2020-05-19] MEDS ORDERED: LIDOCAINE 1% (10MG/ML) FOR IV START INTRADERMA ONE (08:01)
[2020-05-19] MEDS ORDERED: ONDANSETRON 4 MG/2 ML VIAL ONE (08:01)
[2020-05-19] MEDS ORDERED: LACTATED RINGERS 1,000 ML IV ONE ×3 (08:01→10:46)
[2020-05-19] MEDS ORDERED: DEXAMETHASONE SOD PHOSPHATE 4 MG/ML 1 ML VIAL IV ONE (08:02)
[2020-05-19] MEDS ORDERED: ONDANSETRON 4 MG/2 ML VIAL IVP ONE (08:03)
[2020-05-19] MEDS ORDERED: MIDAZOLAM 2 MG/2 ML VIAL IV ONE (08:04)
[2020-05-19] MEDS ORDERED: LIDOCAINE 1% INJ 10MG/ML (20 ML MDV) ONE (08:06)
[2020-05-19] MEDS ORDERED: NEOSTIGMINE 1 MG/ML 10 ML VIAL ONE (08:06)
[2020-05-19] MEDS ORDERED: GLYCOPYRROLATE 0.2 MG/ML 2 ML VIAL ONE (08:06)
[2020-05-19] MEDS ORDERED: fentaNYL (PF) 50 MCG/ML 2 ML AMP ONE (08:06)
[2020-05-19] MEDS ORDERED: SUCCINYLCHOLINE CHLORIDE 100 MG/5 ML SYR IV ONE (08:06)
[2020-05-19] MEDS ORDERED: ROCURONIUM 10 MG/ML (10 ML VIAL) IV ONE (08:06)
[2020-05-19] MEDS ORDERED: PROPOFOL 10 MG/ML 20 ML VIAL IV ONE (08:06)
[2020-05-19] MEDS ORDERED: LIDOCAINE 1% INJ 10MG/ML (20 ML MDV) SQ ONE (08:33)
--- NOTE | 2020-05-19 08:59 | P.GSHP ---
History of Present Illness H&P Date: 05/19/20 Chief Complaint: Right upper quadrant pain This a 80-year-old female with complaints of right upper quadrant pain. She underwent CAT scan shows evidence of cholelithiasis. Past Medical History Past Medical History: COPD, GERD/Reflux, Osteoarthritis (OA), Pneumonia, Renal Disease Additional Past Medical History / Comment(s): constipation,IBS,CHRONIC DIARRHEA. Falls-uses walker. DIVERTICULITIS. rib removed during LEFT nephrectomy. History of Any Multi-Drug Resistant Organisms: None Reported Past Surgical History: Bowel Resection, Hysterectomy, Orthopedic Surgery Additional Past Surgical History / Comment(s): LEFT left kidney removed as a teen d/t infection. .Low anterior resection for diverticulosis. Partial lt mastectomy but found out it wasn't cancer. Cataracts,colonoscopy, rt ear sx Past Anesthesia/Blood Transfusion Reactions: Previous Problems w/ Anesthesia Additional Past Anesthesia/Blood Transfusion Reaction / Comment(s): severe anxiety states "problems being combative,agitated and confused post anesthesia." Smoking Status: Current some day smoker - Past Family History Father Family Medical History: Cancer Mother Family Medical History: Cancer Medications and Allergies Home Medications Medication Instructions Recorded Confirmed Type FLUoxetine HCL [PROzac] 40 mg PO QAM 02/11/20 05/19/20 History busPIRone HCl [Buspar] 7.5 mg PO BID 02/11/20 05/19/20 History lamoTRIgine [LaMICtal] 50 mg PO BID 02/11/20 05/19/20 History clonazePAM [KlonoPIN] 0.5 mg PO BID 05/18/20 05/19/20 History Allergies Allergy/AdvReac Type Severity Reaction Status Date / Time NSAIDS (Non-Steroidal AdvReac unable to Verified 05/19/20 07:49 Anti-Inflamma take related to kidney Surgical - Exam Vital Signs Temp Pulse Resp BP Pulse Ox 97.1 F L 83 18 137/65 97 05/19/20 07:45 05/19/20 07:45 05/19/20 07:45 05/19/20 07:45 05/19/20 07:45 - General well developed, well nourished - Eyes PERRL - ENT normal pinna - Neck no masses - Respiratory normal expansion - Cardiovascular Rhythm: regular - Abdomen Abdomen: soft, non tender Assessment and Plan Assessment: Right upper quadrant pain Cholelithiasis We'll perform laparoscopic cholecystectomy
--- NOTE | 2020-05-19 09:00 | P.OP ---
Date of Procedure: 05/19/20 Preoperative Diagnosis: Cholelithiasis Postoperative Diagnosis: Cholelithiasis Procedure(s) Performed: Laparoscopic cholecystectomy Anesthesia: CHRISTINE Surgeon: Joseph Edwards Estimated Blood Loss (ml): 5 Pathology: other (Gallbladder) Condition: stable Disposition: PACU Description of Procedure: The patient was placed on the operating table. The patient received a general endotracheal tube anesthesia. The patients abdomen was prepped and draped in the usual sterile fashion. Through an infraumbilical stab incision, the fascia of the anterior abdominal wall was grasped with a pair of Kochers and then the Veress needle was placed in the peritoneal cavity. Position of the Veress needle was confirmed with positive drop test. The abdomen was then insufflated. After adequate insufflation, the 10 mm trocar was placed in the peritoneal cavity. Following this the laparoscope was placed in the peritoneal cavity. The patient was placed in the head-up, right side up position and then a 5 mm trocar was placed in the right lateral and right subcostal position under direct visualization. A 8 mm trocar was placed in the epigastric position. The gallbladder was grasped in the fundus and infundibulum. Traction on the gallbladder was placed in the lateral and the cephalad positions. The triangle of Calot was visualized.. The cystic duct was bluntly dissected until the union of the cystic duct and common bile duct was seen. A critical view of safety was achieved. The cystic duct was then divided and sealed with the Harmonic scissors. A PDS Endoloop was then placed throughout the cystic duct stump. The cystic artery divided and sealed with the Harmonic scissors. The gallbladder was then removed from the liver bed using Harmonic scissors. The gallbladder was then extracted through the epigastric port site. Operative field was checked for any bleeding spots and Harmonic scissors was used to coagulate the liver bed. The abdomen was irrigated. The trocars were removed. The skin was closed using interrupted 3-0 Vicryl suture. Dermabond dressing were applied. The patient tolerated the procedure well.
[2020-05-19 09:14] VITALS: TEMP 96.9
[2020-05-19] MEDS ORDERED: HYDROmorphone 0.5 MG/0.5 ML SYRINGE IVP ONE (09:20)
[2020-05-19] MEDS ORDERED: MIDAZOLAM 2 MG/2 ML VIAL IVP ONE (09:36)
[2020-05-19] MEDS ORDERED: HYDROmorphone 1 MG/ML 1 ML SYRINGE IVP ONE (10:12)
[2020-05-19 12:18] VITALS: BP 140/63; PULSE 82; RESP 18
== END 2020-05-19 13:57 | disposition home or self-care (01) ==
LOC: OR 07:12
PROVIDERS: ATTEND Surgery
DX: K80.12 Calculus of gallbladder with acute and chronic cholecystitis without obstruction (principal); J44.9 Chronic obstructive pulmonary disease, unspecified; K21.9 Gastro-esophageal reflux disease without esophagitis; M19.90 Unspecified osteoarthritis, unspecified site; K58.0 Irritable bowel syndrome with diarrhea; K08.89 Other specified disorders of teeth and supporting structures; F17.210 Nicotine dependence, cigarettes, uncomplicated; N28.9 Disorder of kidney and ureter, unspecified; F41.9 Anxiety disorder, unspecified; F32.9 Major depressive disorder, single episode, unspecified; Z87.01 Personal history of pneumonia (recurrent); Z87.19 Personal history of other diseases of the digestive system; Z91.81 History of falling; Z90.89 Acquired absence of other organs; Z90.5 Acquired absence of kidney; Z90.49 Acquired absence of other specified parts of digestive tract; Z90.710 Acquired absence of both cervix and uterus; Z98.890 Other specified postprocedural states; Z87.440 Personal history of urinary (tract) infections; Z90.12 Acquired absence of left breast and nipple; Z98.41 Cataract extraction status, right eye; Z98.42 Cataract extraction status, left eye; Z91.89 Other specified personal risk factors, not elsewhere classified; Z79.899 Other long term (current) drug therapy; Z88.6 Allergy status to analgesic agent; Z80.9 Family history of malignant neoplasm, unspecified
CPT/HCPCS: 47562; J2250; J1644; J1100; J2710; J0690; J2405; J2001; J3010; J1170 ×2; J0330; J2704; 88304

== ENCOUNTER 2020-10-13 15:25 | Emergency (ER) | payer MEDICARE, OTHER ==
[2020-10-13 15:36] VITALS: BP 163/75; PULSE 84; RESP 18; TEMP 97.4
[2020-10-13] MEDS ORDERED: ACET/COD 300 MG/30 MG STARTER PACK 6 TAB BTL PO STA (16:27)
--- NOTE | 2020-10-13 16:31 | ED ---
Extremity Problem HPI - General Chief complaint: Extremity Problem,Nontraumatic Stated complaint: leg pain Time Seen by Provider: 10/13/20 16:08 Source: patient Mode of arrival: ambulatory Limitations: no limitations - History of Present Illness Initial comments: 80-year-old female presents to emergency Department with a chief complaint of leg pain. States the pain is located in bilateral lower extremities and occasionally feels like pins and needles. States the pain is exacerbated with ambulation and alleviated at rest. However, sometimes she can also get the pain while resting. States this is the not one for several years and now she seeing a internal specialist. States today she was there at the office, they were performing an ankle brachial index test and she began to have pain. She was requesting symptomatic relief with pain medication but they would not prescribe her anything advised to come to emergency department for any pain medication. Patient denies any chest pain or shortness of breath, ecchymosis or necrosis of the feet. States she has only one kidney and cannot tolerate any IV contrast due to deteriorating renal function. - Related Data Home Medications Medication Instructions Recorded Confirmed FLUoxetine HCL [PROzac] 40 mg PO QAM 02/11/20 05/19/20 busPIRone HCl [Buspar] 7.5 mg PO BID 02/11/20 05/19/20 lamoTRIgine [LaMICtal] 50 mg PO BID 02/11/20 05/19/20 clonazePAM [KlonoPIN] 0.5 mg PO BID 05/18/20 05/19/20 Previous Rx's Medication Instructions Recorded Acetaminophen Tab [Tylenol] 650 mg PO Q6H #30 tab 05/19/20 Docusate [Colace] 100 mg PO BID #20 capsule 05/19/20 Ibuprofen [Motrin] 600 mg PO Q6HR PRN #40 tab 05/19/20 oxyCODONE HCL [OxyIR] 5 mg PO Q4H PRN 3 Days #18 tab 05/19/20 Allergies Allergy/AdvReac Type Severity Reaction Status Date / Time NSAIDS (Non-Steroidal AdvReac unable to Verified 10/13/20 15:36 Anti-Inflamma take related to kidney Review of Systems ROS Statement: Those systems with pertinent positive or pertinent negative responses have been documented in the HPI. ROS Other: All systems not noted in ROS Statement are negative. Past Medical History Past Medical History: COPD, GERD/Reflux, Osteoarthritis (OA), Pneumonia, Renal Disease Additional Past Medical History / Comment(s): constipation,IBS,CHRONIC DIARRHEA. Falls-uses walker. DIVERTICULITIS. rib removed during LEFT nephrectomy. History of Any Multi-Drug Resistant Organisms: None Reported Past Surgical History: Bowel Resection, Cholecystectomy, Hysterectomy, Orthopedic Surgery Additional Past Surgical History / Comment(s): LEFT left kidney removed as a teen d/t infection. .Low anterior resection for diverticulosis. Partial lt mastectomy but found out it wasn't cancer. Cataracts,colonoscopy, rt ear sx Past Anesthesia/Blood Transfusion Reactions: Previous Problems w/ Anesthesia Additional Past Anesthesia/Blood Transfusion Reaction / Comment(s): severe anxiety states "problems being combative,agitated and confused post anesthesia." Past Psychological History: Anxiety, Bipolar, Depression, Panic Disorder Smoking Status: Former smoker Past Alcohol Use History: None Reported Past Drug Use History: None Reported - Past Family History Father Family Medical History: Cancer Mother Family Medical History: Cancer General Exam Limitations: no limitations General appearance: alert, in no apparent distress Head exam: Present: atraumatic, normocephalic, normal inspection Eye exam: Present: normal appearance, PERRL, EOMI Pupils: Present: normal accommodation ENT exam: Present: normal exam, normal oropharynx, mucous membranes moist Neck exam: Present: normal inspection, full ROM. Absent: tenderness, lymphadenopathy Respiratory exam: Present: normal lung sounds bilaterally. Absent: respiratory distress Cardiovascular Exam: Present: regular rate, normal rhythm, normal heart sounds. Absent: systolic murmur Extremities exam: Present: normal inspection (No signs of ecchymosis or necrosis on bilateral lower extremities), full ROM, tenderness (Tenderness along the anterior aspect of her bilateral lower extremity), normal capillary refill, other (+2 dorsalis pedis and posterior tibials bilaterally.). Absent: pedal edema, joint swelling, calf tenderness Back exam: Present: normal inspection, full ROM. Absent: tenderness Neurological exam: Present: alert, oriented X3 Psychiatric exam: Present: normal affect, normal mood Skin exam: Present: warm, dry, intact, normal color Course Vital Signs 10/13/20 15:32 Temperature 97.4 F L Pulse Rate 84 Respiratory 18 Rate Blood Pressure 163/75 O2 Sat by Pulse 97 Oximetry Medical Decision Making - Medical Decision Making 80-year-old female presents emergency Department with chief complaint of leg p ain. Physical examination is unremarkable. +2 dorsalis pedis and posterior tibialis bilaterally. No signs of limits ischemia at this time. To perform any further evaluations, CT with contrast was necessary and the patient cannot tolerate that due to having a single kidney with poor renal function. Patient is only requesting symptomatically relief which I will give her Tylenol 3 4. Return parameters were discussed with patient was understanding gravel. Case discussed with Dr. Frank. Disposition Clinical Impression: Bilateral leg pain Disposition: HOME SELF-CARE Condition: Stable Instructions (If sedation given, give patient instructions): Leg Pain (ED) Additional Instructions: Please return to the Emergency Department if symptoms worsen or any other concerns. Is patient prescribed a controlled substance at d/c from ED?: No Referrals: Helio Mott MD [Primary Care Provider] - 1-2 days Time of Disposition: 16:33
== END 2020-10-13 16:45 | disposition home or self-care (01) ==
LOC: EC 15:25
DX: M79.662 Pain in left lower leg (principal); M79.661 Pain in right lower leg; J44.9 Chronic obstructive pulmonary disease, unspecified; M19.90 Unspecified osteoarthritis, unspecified site; F41.9 Anxiety disorder, unspecified; F31.9 Bipolar disorder, unspecified; Z90.49 Acquired absence of other specified parts of digestive tract; Z90.710 Acquired absence of both cervix and uterus; Z87.891 Personal history of nicotine dependence
CPT/HCPCS: 99283

== ENCOUNTER 2020-11-13 11:56 | Emergency (ER) | payer MEDICARE, OTHER ==
[2020-11-13 12:06] VITALS: BP 121/66; PULSE 82; RESP 18; TEMP 99.2
[2020-11-13] MEDS ORDERED: DIAZEPAM 5 MG/ML 2 ML INJ IVP STA (12:33)
[2020-11-13] MEDS ORDERED: KETOROLAC 15 MG/ML 1 ML VIAL IVP STA (12:34)
--- NOTE | 2020-11-13 12:53 | ED ---
General Adult HPI - General Chief complaint: Neck Pain/Injury Stated complaint: neck pain Time Seen by Provider: 11/13/20 12:00 Source: patient, EMS, RN notes reviewed, old records reviewed Mode of arrival: EMS Limitations: no limitations - History of Present Illness Initial comments: This is a 80-year-old female who presents emergency Department complaining of neck pain. Patient states she chronically has neck pain today. Patient states it's worse on the right side than the left. Patient states she was at [facility] yesterday and they didn't do much for so she came here today. Patient states she has no numbness weakness. Patient denies any recent trauma or injury. Patient denies any recent fever chills. Patient states hurts with movement and/or palpation particularly on the right posterior aspect of her neck. Patient has no other complaints at this time - Related Data Home Medications Medication Instructions Recorded Confirmed lamoTRIgine [LaMICtal] 50 mg PO BID 02/11/20 11/13/20 ALPRAZolam [Xanax] 0.5 mg PO BID PRN 11/13/20 11/13/20 Gabapentin [Neurontin] 600 mg PO TID 11/13/20 11/13/20 Sertraline [Zoloft] 25 mg PO DAILY 11/13/20 11/13/20 busPIRone HCl [Buspar] 10 mg PO BID 11/13/20 11/13/20 Previous Rx's Medication Instructions Recorded Cyclobenzaprine [Flexeril] 5 mg PO BID #10 tablet 11/13/20 Ibuprofen [Motrin] 400 mg PO Q8HR #15 tab 11/13/20 Allergies Allergy/AdvReac Type Severity Reaction Status Date / Time NSAIDS (Non-Steroidal AdvReac unable to Verified 10/13/20 15:36 Anti-Inflamma take related to kidney Review of Systems ROS Statement: Those systems with pertinent positive or pertinent negative responses have been documented in the HPI. ROS Other: All systems not noted in ROS Statement are negative. Past Medical History Past Medical History: COPD, GERD/Reflux, Osteoarthritis (OA), Pneumonia, Renal Disease Additional Past Medical History / Comment(s): constipation,IBS,CHRONIC DIARRHEA. Falls-uses walker. DIVERTICULITIS. rib removed during LEFT nephrectomy. History of Any Multi-Drug Resistant Organisms: None Reported Past Surgical History: Bowel Resection, Cholecystectomy, Hysterectomy, Orthopedic Surgery Additional Past Surgical History / Comment(s): LEFT left kidney removed as a teen d/t infection. .Low anterior resection for diverticulosis. Partial lt mastectomy but found out it wasn't cancer. Cataracts,colonoscopy, rt ear sx Past Anesthesia/Blood Transfusion Reactions: Previous Problems w/ Anesthesia Additional Past Anesthesia/Blood Transfusion Reaction / Comment(s): severe a nxiety states "problems being combative,agitated and confused post anesthesia." Past Psychological History: Anxiety, Bipolar, Depression, Panic Disorder Smoking Status: Former smoker Past Alcohol Use History: None Reported Past Drug Use History: None Reported - Past Family History Father Family Medical History: Cancer Mother Family Medical History: Cancer General Exam - General Exam Comments Initial Comments: GENERAL: Patient is well-developed and well-nourished. Patient is nontoxic and well- hydrated and is in mild distress. ENT: Neck is soft and supple. No significant lymphadenopathy is noted. Oropharynx is clear. Moist mucous membranes. Patient's range of motion is limited secondary to pain particularly on the right posterior aspect of her neck. Patient has a particularly hard time turning her head to the left or looking up. EYES: The sclera were anicteric and conjunctiva were pink and moist. Extraocular movements were intact and pupils were equal round and reactive to light. Eyelids were unremarkable. PULMONARY: Unlabored respirations. Good breath sounds bilaterally. No audible rales rhonchi or wheezing was noted. CARDIOVASCULAR: There is a regular rate and rhythm without any murmurs gallops or rubs. ABDOMEN: Soft and nontender with normal bowel sounds. SKIN: Skin is clear with no lesions or rashes and otherwise unremarkable. NEUROLOGIC: Patient is alert and oriented x3. Cranial nerves II through XII are grossly intact. Motor and sensory are also intact. MUSCULOSKELETAL: Normal extremities with adequate strength and full range of motion. LYMPHATICS: No significant lymphadenopathy is noted PSYCHIATRIC: Normal psychiatric evaluation. Limitations: no limitations Course Vital Signs 11/13/20 11:57 Temperature 99.2 F Pulse Rate 82 Respiratory 18 Rate Blood Pressure 121/66 O2 Sat by Pulse 97 Oximetry Medical Decision Making - Medical Decision Making Patient was given 3 mg of Valium and Toradol and she was resting comfortably. Patient states she has only one kidney and she was told that she shouldn't take NSAIDs on a long-term basis. I told her to be getting some low dose NSAIDs 3 times a day for a few days so she can have some relief from the pain. Disposition Clinical Impression: Acute torticollis Disposition: HOME SELF-CARE Condition: Good Instructions (If sedation given, give patient instructions): Spasmodic Torticollis (ED) Prescriptions: Cyclobenzaprine [Flexeril] 5 mg PO BID #10 tablet Ibuprofen [Motrin] 400 mg PO Q8HR #15 tab Is patient prescribed a controlled substance at d/c from ED?: No Referrals: Helio Mott MD [Primary Care Provider] - 1-2 days Time of Disposition: 13:58
== END 2020-11-13 14:16 | disposition home or self-care (01) ==
LOC: EC 11:56
DX: M43.6 Torticollis (principal); J44.9 Chronic obstructive pulmonary disease, unspecified; M19.90 Unspecified osteoarthritis, unspecified site; F31.9 Bipolar disorder, unspecified; F41.9 Anxiety disorder, unspecified; Z87.891 Personal history of nicotine dependence
CPT/HCPCS: 99283; 96374; 96375; J3360; J1885

== ENCOUNTER 2020-11-16 19:48 | Emergency (ER) | payer MEDICARE, OTHER ==
[2020-11-16 19:57] VITALS: TEMP 99.5
[2020-11-16] MEDS ORDERED: DIAZEPAM 5 MG/ML 2 ML INJ IVP STA (21:05)
[2020-11-16] MEDS ORDERED: MORPHINE SULFATE 2 MG/ML SYRINGE IVP STA (21:05)
[2020-11-16 21:24] LABS: Basophils % (A) 0 %; Eosinophils # (A) 0.2 k/uL (0-0.7); Eosinophils % (A) 2 %; HCT 35.9 % (34.0-46.0); HGB 11.7 gm/dL (11.4-16.0); Lymphocytes % (A) 11 %; MCH 29.7 pg (25.0-35.0); MCHC 32.6 g/dL (31.0-37.0); Mean Platelet Volume 7.2; Monocytes # (A) 0.6 k/uL (0-1.0); Monocytes % (A) 7 %; Neutrophils # (A) 6.6 k/uL (1.3-7.7); Neutrophils % (A) 77 %; Platelet Count 281 k/uL (150-450); RBC 3.95 m/uL (3.80-5.40); RDW 13.4 % (11.5-15.5); WBC 8.5 k/uL (3.8-10.6)
[2020-11-16 21:32] LABS: ALT 28 U/L (4-34); AST 49 U/L (14-36); African American GFR (CKD) >90 (>60 ml/min/1.73 sqM); Albumin 3.7 g/dL (3.5-5.0); Alkaline Phosphatase 262 U/L (38-126); Anion Gap 9 mmol/L; Blood Urea Nitrogen 17 mg/dL (7-17); Calcium 8.8 mg/dL (8.4-10.2); Carbon Dioxide 24 mmol/L (22-30); Chloride 101 mmol/L (98-107); Glucose 106 mg/dL (74-99); Non-African American GFR(CKD) 84 (>60 ml/min/1.73 sqM); Sodium 134 mmol/L (137-145); Total Protein 6.4 g/dL (6.3-8.2)
[2020-11-16 21:40] LABS: Potassium 4.5 mmol/L (3.5-5.1)
--- NOTE | 2020-11-16 21:52 | ED ---
General Adult HPI - General Chief complaint: Extremity Problem,Nontraumatic Stated complaint: ankle swelling, toothache Time Seen by Provider: 11/16/20 20:14 Source: patient, EMS Mode of arrival: EMS - History of Present Illness Initial comments: 80 year-old female patient presents to the emergency department for multiple complaints. States that she has been having right sided neck pain and facial pain. States that symptoms started about three days ago. States it started in he r neck and now is radiating into the right side of her face and head. States that whenever she tries to move her head at all it makes the pain worse. She states it is constant. Denies numbness but states she does have some tingling over the top of her head. States that she had a fall yesterday. Denies hitting her head or passing out. 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 She also reports increase in her neuropathic foot pain and swelling of the feet bilaterally. States the swelling started today. Denies any new numbness or tingling. Denies redness. Denies any fever or chills. Denies nausea or vomiting. Denies any known injury to the feet. Patient denies any recent rash, cough, shortness of breath, chest pain, abdominal pain, diarrhea, constipation, back pain, dizziness, weakness, hematuria, dysuria, urinary urgency, urinary frequency, visual changes, or any other complaints. - Related Data Home Medications Medication Instructions Recorded Confirmed lamoTRIgine [LaMICtal] 50 mg PO BID 02/11/20 11/13/20 ALPRAZolam [Xanax] 0.5 mg PO BID PRN 11/13/20 11/13/20 Gabapentin [Neurontin] 600 mg PO TID 11/13/20 11/13/20 Sertraline [Zoloft] 25 mg PO DAILY 11/13/20 11/13/20 busPIRone HCl [Buspar] 10 mg PO BID 11/13/20 11/13/20 Previous Rx's Medication Instructions Recorded Cyclobenzaprine [Flexeril] 5 mg PO BID #10 tablet 11/13/20 Ibuprofen 400 mg PO Q8H #15 tab 11/13/20 Cyclobenzaprine [Flexeril] 10 mg PO TID #15 tab 11/16/20 Allergies Allergy/AdvReac Type Severity Reaction Status Date / Time NSAIDS (Non-Steroidal AdvReac unable to Verified 10/13/20 15:36 Anti-Inflamma take related to kidney Review of Systems ROS Statement: Those systems with pertinent positive or pertinent negative responses have been documented in the HPI. ROS Other: All systems not noted in ROS Statement are negative. Past Medical History Past Medical History: COPD, GERD/Reflux, Osteoarthritis (OA), Pneumonia, Renal Disease Additional Past Medical History / Comment(s): constipation,IBS,CHRONIC DIARRHEA. Falls-uses walker. DIVERTICULITIS. rib removed during LEFT nephrectomy. History of Any Multi-Drug Resistant Organisms: None Reported Past Surgical History: Bowel Resection, Cholecystectomy, Hysterectomy, Orthopedic Surgery Additional Past Surgical History / Comment(s): LEFT left kidney removed as a teen d/t infection. .Low anterior resection for diverticulosis. Partial lt mastectomy but found out it wasn't cancer. Cataracts,colonoscopy, rt ear sx Past Anesthesia/Blood Transfusion Reactions: Previous Problems w/ Anesthesia Additional Past Anesthesia/Blood Transfusion Reaction / Comment(s): severe anxiety states "problems being combative,agitated and confused post anesthesia." Past Psychological History: Anxiety, Bipolar, Depression, Panic Disorder Smoking Status: Former smoker Past Alcohol Use History: None Reported Past Drug Use History: None Reported - Past Family History Father Family Medical History: Cancer Mother Family Medical History: Cancer General Exam General appearance: alert, in no apparent distress, other (This is a well-develo ped, well-nourished adult female patient mild distress related to pain. Vital signs upon presentation are temperature 99.5F, pulse 89, respirations 19, blood pressure 127/67, pulse ox 98% on room air.) Eye exam: Present: normal appearance, PERRL, EOMI. Absent: scleral icterus, conjunctival injection, nystagmus, periorbital swelling ENT exam: Present: normal exam, normal oropharynx, mucous membranes moist, TM's normal bilaterally Neck exam: Present: normal inspection. Absent: tenderness, meningismus, full ROM (Reports increased pain with movement, refuses to rotate), lymphadenopathy Respiratory exam: Present: normal lung sounds bilaterally. Absent: respiratory distress, wheezes, rales, rhonchi, stridor Cardiovascular Exam: Present: regular rate, normal rhythm, normal heart sounds. Absent: systolic murmur, diastolic murmur, rubs, gallop, clicks GI/Abdominal exam: Present: soft, normal bowel sounds. Absent: distended, tenderness, guarding, rebound, rigid Neurological exam: Present: alert, oriented X3, CN II-XII intact Psychiatric exam: Present: normal affect, normal mood Skin exam: Present: warm, dry, intact, normal color. Absent: rash Course Vital Signs 11/16/20 11/16/20 19:50 22:16 Temperature 99.5 F Pulse Rate 89 68 Respiratory 19 17 Rate Blood Pressure 127/67 145/85 O2 Sat by Pulse 98 96 Oximetry Medical Decision Making - Medical Decision Making 80-year-old female patient presented to the emergency department today for e valuation of right-sided neck pain and facial pain and headache. She also reported lower extremity swelling and increase in her neuropathy to her feet. Physical examination is unremarkable. She is neurologically intact with no focal deficits. Labs reviewed and are unremarkable. We did perform CT brain and C-spine which was negative other than degenerative changes in the cervical spine. I did discuss findings results with her. She requests to go home. She'll be discharged with muscle relaxer. Given Tylenol codeine starter pack. She is instructed to follow-up with her primary care physician for recheck in 1- 2 days. Return parameters discussed in detail. She verbalizes understanding and agrees with this plan. Case discussed with my attending Dr. Pryor. - Lab Data Result diagrams: 11/16/20 21:18 11/16/20 21:18 Lab Results 11/16/20 11/16/20 Range/Units 21:18 21:18 WBC 8.5 (3.8-10.6) k/uL RBC 3.95 (3.80-5.40) m/uL Hgb 11.7 (11.4-16.0) gm/dL Hct 35.9 (34.0-46.0) % MCV 91.0 (80.0-100.0) fL MCH 29.7 (25.0-35.0) pg MCHC 32.6 (31.0-37.0) g/dL RDW 13.4 (11.5-15.5) % Plt Count 281 (150-450) k/uL MPV 7.2 Neutrophils % 77 % Lymphocytes % 11 % Monocytes % 7 % Eosinophils % 2 % Basophils % 0 % Neutrophils # 6.6 (1.3-7.7) k/uL Lymphocytes # 1.0 (1.0-4.8) k/uL Monocytes # 0.6 (0-1.0) k/uL Eosinophils # 0.2 (0-0.7) k/uL Basophils # 0.0 (0-0.2) k/uL Sodium 134 L (137-145) mmol/L Potassium 4.5 (3.5-5.1) mmol/L Chloride 101 (98-107) mmol/L Carbon Dioxide 24 (22-30) mmol/L Anion Gap 9 mmol/L BUN 17 (7-17) mg/dL Creatinine 0.68 (0.52-1.04) mg/dL Est GFR (CKD-EPI)AfAm >90 (>60 ml/min/1.73 sqM) Est GFR (CKD-EPI)NonAf 84 (>60 ml/min/1.73 sqM) Glucose 106 H (74-99) mg/dL Calcium 8.8 (8.4-10.2) mg/dL Total Bilirubin 1.0 (0.2-1.3) mg/dL AST 49 H (14-36) U/L ALT 28 (4-34) U/L Alkaline Phosphatase 262 H (38-126) U/L Total Protein 6.4 (6.3-8.2) g/dL Albumin 3.7 (3.5-5.0) g/dL - Radiology Data Radiology results: report reviewed, image reviewed CT brain and C-spine without contrast obtained. Report reviewed in its entirety. Impression by Dr. Sharma shows no acute fracture or dislocation in the cervical spine. No acute intracranial hemorrhage, mass effect, or midline shift. 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 Disposition Clinical Impression: Headache, Neck pain Disposition: HOME SELF-CARE Condition: Good Instructions (If sedation given, give patient instructions): Acute Headache (ED), Neck Pain (ED) Additional Instructions: Take medications as directed. Apply warm moist heat to the neck. Follow-up with the primary care physician for recheck in 1-2 days. Return for any new, worsening, or concerning symptoms. Prescriptions: Cyclobenzaprine [Flexeril] 10 mg PO TID #15 tab Is patient prescribed a controlled substance at d/c from ED?: No Referrals: Helio Mott MD [Primary Care Provider] - 1-2 days Time of Disposition: 22:52
--- NOTE | 2020-11-16 22:07 | CT ---
EXAMINATION TYPE: CT brain clarence wo con DATE OF EXAM: 11/16/2020 COMPARISON: 10/06/2018. HISTORY: Headache and neck pain. CT DLP: 1293.5 mGycm Automated exposure control for dose reduction was used. TECHNIQUE: CT scan of the head and cervical spine are performed without contrast. FINDINGS: There is no acute intracranial hemorrhage, mass effect, or midline shift identified. The ventricles and sulci are within normal limits in size. The globes are intact and the visualized sin uses are clear. Cervical spine is visualized in its entirety from C1 through upper thoracic levels and demonstrates n o evidence of acute fracture or dislocation. There is moderate to severe C4-C7 spondylosis with mild retrolisthesis of C5 on C6 and minimal anterolisthesis of C4 on C5. Prevertebral soft tissue appears within normal limits. The C1-C2 articulation is unremarkable. IMPRESSION: 1. There is no acute fracture or dislocation evident in the cervical spine. 2. No acute intracranial hemorrhage, mass effect, or midline shift is seen. 3. 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
[2020-11-16 22:17] VITALS: BP 145/85; PULSE 68; RESP 17
[2020-11-16] MEDS ORDERED: KETOROLAC 15 MG/ML 1 ML VIAL IVP STA (22:50)
[2020-11-16] MEDS ORDERED: ACET/COD 300 MG/30 MG STARTER PACK 6 TAB BTL PO STA (22:52)
== END 2020-11-16 23:30 | disposition home or self-care (01) ==
LOC: EC 19:48
DX: R51.9 Headache, unspecified (principal); M54.2 Cervicalgia; J44.9 Chronic obstructive pulmonary disease, unspecified; K21.9 Gastro-esophageal reflux disease without esophagitis; M19.90 Unspecified osteoarthritis, unspecified site; F31.9 Bipolar disorder, unspecified; F41.9 Anxiety disorder, unspecified; Z87.891 Personal history of nicotine dependence; Z79.1 Long term (current) use of non-steroidal anti-inflammatories (NSAID); Z79.899 Other long term (current) drug therapy; Z88.6 Allergy status to analgesic agent
CPT/HCPCS: 36415; 80053; 85025; 72125; 70450; 96374; 96375 ×2; 99285; J3360; J2270; J1885

== ENCOUNTER 2021-08-16 06:18 | Day surgery (SDC) | payer MEDICARE, OTHER ==
[2021-08-12 14:53] VITALS: BMI 23.8
[~2021-08-16 06:18] MED LIST changes: -HEPARIN SODIUM,PORCINE 5,000 UNIT/ML 1 ML VIAL SQ PRN; +HEPARIN SODIUM,PORCINE/PF 5,000 UNIT/0.5 ML SYRINGE SQ PRN; +LACTATED RINGERS 1,000 ML IV SCH; +ONDANSETRON 4 MG/2 ML VIAL IVP ONE; +Pre Op ABX Message 1 EACH MISC MISCELLANE ONE
[2021-08-16] MEDS ORDERED: fentaNYL (PF) 50 MCG/ML 2 ML AMP IV PRN (07:00)
[2021-08-16 07:12] VITALS: RESP 16; TEMP 98.8
[2021-08-16 07:21] LABS: Basophils # (A) 0.2 k/uL (0-0.2); Basophils % (A) 2 %; Eosinophils # (A) 0.3 k/uL (0-0.7); Eosinophils % (A) 4 %; HCT 43.4 % (34.0-46.0); HGB 14.1 gm/dL (11.4-16.0); Lymphocytes # (A) 1.1 k/uL (1.0-4.8); Lymphocytes % (A) 14 %; MCH 30.4 pg (25.0-35.0); MCHC 32.5 g/dL (31.0-37.0); MCV 93.7 fL (80.0-100.0); Mean Platelet Volume 7.5; Monocytes # (A) 0.4 k/uL (0-1.0); Monocytes % (A) 5 %; Neutrophils # (A) 5.9 k/uL (1.3-7.7); Neutrophils % (A) 73 %; Platelet Count 251 k/uL (150-450); RBC 4.63 m/uL (3.80-5.40); RDW 11.9 % (11.5-15.5); WBC 8.1 k/uL (3.8-10.6)
[2021-08-16] MEDS ORDERED: MIDAZOLAM 2 MG/2 ML VIAL IVP ONE ×2 (07:23→07:31)
[2021-08-16] MEDS ORDERED: MIDAZOLAM 2 MG/2 ML VIAL ONE (07:47)
[2021-08-16] MEDS ORDERED: PROPOFOL 10 MG/ML 20 ML VIAL IV ONE (07:47)
[2021-08-16] MEDS ORDERED: LIDOCAINE 1% INJ 10MG/ML (20 ML MDV) ONE (07:47)
[2021-08-16] MEDS ORDERED: fentaNYL (PF) 50 MCG/ML 2 ML AMP ONE (07:47)
[2021-08-16] MEDS ORDERED: SODIUM CHLORIDE 0.9% 100 ML with ceFAZolin 2,000 MG IV ONE ×2 (08:12)
[2021-08-16] MEDS ORDERED: LIDOCAINE 1% INJ 10MG/ML (20 ML MDV) SQ ONE (08:13)
[2021-08-16] MEDS ORDERED: GELATIN SPONGE,ABSORB (LARGE) 1 EACH SPONGE TOPICAL ONE (08:17)
--- NOTE | 2021-08-16 08:30 | P.GSHP ---
History of Present Illness H&P Date: 08/16/21 Chief Complaint: Internal and external hemorrhoids This is a 81-year-old female who's had complaints of anal pain, bleeding and itching related to internal and external hemorrhoids. Patient presents today for hemorrhoidectomy. Past Medical History Past Medical History: COPD, Osteoarthritis (OA), Pneumonia Additional Past Medical History / Comment(s): constipation, hx of diverticulitis with bowel resection, 1 kidney removed at 17 yrs old due to infection., anemia., Hemorrhoid History of Any Multi-Drug Resistant Organisms: None Reported Past Surgical History: Bowel Resection, Cholecystectomy, Hysterectomy, Orthopedic Surgery Additional Past Surgical History / Comment(s): left kidney removed as a teen d/t infection. (rib removed with this surgery)., .Low anterior resection for diverticulosis. Partial lt mastectomy but found out it wasn't cancer. Cataracts,colonoscopy. Past Anesthesia/Blood Transfusion Reactions: Previous Problems w/ Anesthesia Additional Past Anesthesia/Blood Transfusion Reaction / Comment(s): severe anxiety states combative, agitated and confused post anesthesia. Past Psychological History: Anxiety, Bipolar, Depression, Panic Disorder Additional Psychological History / Comment(s): . Smoking Status: Former smoker Past Alcohol Use History: None Reported Additional Past Alcohol Use History / Comment(s): started smoking at age 15,on and off, Quit around 70 yrs old. Past Drug Use History: None Reported - Past Family History Father Family Medical History: Cancer Mother Family Medical History: Cancer Medications and Allergies Home Medications Medication Instructions Recorded Confirmed Type lamoTRIgine [LaMICtal] 25 mg PO BID 02/11/20 08/16/21 History Sertraline [Zoloft] 50 mg PO DAILY 11/13/20 08/16/21 History Acetaminophen Tab [Tylenol] 650 mg PO Q6H PRN 08/12/21 08/16/21 History LORazepam [Ativan] 0.5 mg PO TID PRN 08/12/21 08/16/21 History Allergies Allergy/AdvReac Type Severity Reaction Status Date / Time aripiprazole [From Abilify] AdvReac Unknown TREMORS Verified 08/12/21 14:57 NSAIDS (Non-Steroidal AdvReac unable to Verified 08/16/21 06:59 Anti-Inflamma take related to kidney Surgical - Exam Vital Signs Temp Pulse Resp BP Pulse Ox 98.8 F 87 16 140/72 97 08/16/21 06:50 08/16/21 06:50 08/16/21 06:50 08/16/21 06:50 08/16/21 06:50 - General well developed, well nourished, no distress - Eyes PERRL - ENT normal pinna - Neck no masses - Respiratory normal expansion - Cardiovascular Rhythm: regular - Abdomen Abdomen: soft, non tender - Rectum Internal and external hemorrhoids Results - Labs 08/16/21 07:14 Assessment and Plan Assessment: Internal and External Hemorrhoids. We'll perform hemorrhoidectomy .
--- NOTE | 2021-08-16 08:32 | P.OP ---
Date of Procedure: 08/16/21 Preoperative Diagnosis: Internal and hemorrhoids Postoperative Diagnosis: Internal and external hemorrhoids Procedure(s) Performed: Internal and external hemorrhoidectomy Anesthesia: CHRISTINE Surgeon: Joseph Edwards Estimated Blood Loss (ml): 5 Pathology: other (Internal and external hemorrhoids) Condition: stable Disposition: PACU Description of Procedure: The patient's placed on the operating table in the prone position her she received IV sedation. Her anus was prepped and draped usual sterile fashion. Anal block was made 1% local lidocaine with epinephrine. This was blocked in 4 quadrants. Using the anal retractor the anus was inspected. In the posterior position at the 6 condition there was a internal extra hemorrhoidal column. This was grasped with a hemostat and excised using Harmonic scissors. A similar column was found left lateral position this was excised with the Harmonic scissors. And in the right anterior position there was another hemorrhoidal column excised with the Harmonic scissors. There was no bleeding seen. The anus was packed with Gelfoam. Patient tolerated procedure well was sent to recovery room in stable condition.
[2021-08-16 09:28] VITALS: BP 128/62; PULSE 88
== END 2021-08-16 10:20 | disposition home or self-care (01) ==
LOC: OR 06:18
PROVIDERS: ATTEND Surgery
DX: K64.4 Residual hemorrhoidal skin tags (principal); K64.8 Other hemorrhoids; J44.9 Chronic obstructive pulmonary disease, unspecified; M19.90 Unspecified osteoarthritis, unspecified site; Z87.891 Personal history of nicotine dependence; Z79.899 Other long term (current) drug therapy; Z88.8 Allergy status to other drugs, medicaments and biological substances; F31.9 Bipolar disorder, unspecified; F41.9 Anxiety disorder, unspecified; Z83.79 Family history of other diseases of the digestive system
CPT/HCPCS: 46255; 88304; 85025; J2250; J2405; J0690; J2001; J3010; J2704; J1644

== ENCOUNTER 2022-07-18 05:40 | Day surgery (SDC) | payer MEDICARE, OTHER ==
[~2022-07-18 05:40] MED LIST changes: +DEXAMETHASONE SOD PHOSPHATE 4 MG/ML 1 ML VIAL IV ONE; +GABAPENTIN 300 MG CAP PO PRN; -HEPARIN SODIUM,PORCINE/PF 5,000 UNIT/0.5 ML SYRINGE SQ PRN; -LACTATED RINGERS 1,000 ML IV SCH; +LIDOCAINE 1% (10MG/ML) FOR IV START INTRADERMA PRN; +MELOXICAM 7.5 MG TAB PO PRN; -Pre Op ABX Message 1 EACH MISC MISCELLANE ONE; +TRANEXAMIC ACID IN NACL,ISO-OS 1,000 MG in SALINE 1 100ML.BAG IVPB PRN
[2022-07-18] MEDS: LACTATED RINGERS 1,000 ML IV SCH (05:48)
[2022-07-18] MEDS ORDERED: MIDAZOLAM 2 MG/2 ML VIAL IV ONE (06:49)
[2022-07-18] MEDS ORDERED: LABETALOL 5 MG/ML VIAL MDV ONE (06:55)
[2022-07-18] MEDS ORDERED: TRANEXAMIC ACID IN NACL,ISO-OS 1,000 MG/100 ML BAG ONE (06:55)
[2022-07-18] MEDS ORDERED: fentaNYL (PF) 50 MCG/ML 2 ML AMP ONE (06:55)
[2022-07-18] MEDS ORDERED: ROPIVACAINE 5 MG/ML 30 ML VIAL ONE (06:55)
[2022-07-18] MEDS ORDERED: LIDOCAINE 2% INJ 20 MG/ML (2 ML VIAL) ONE (06:55)
[2022-07-18] MEDS ORDERED: SUCCINYLCHOLINE CHLORIDE 200 MG/10 ML VIAL IV ONE (06:55)
[2022-07-18] MEDS ORDERED: GLYCOPYRROLATE 0.2 MG/ML 2 ML VIAL ONE (06:55)
[2022-07-18] MEDS ORDERED: DEXAMETHASONE SOD PHOSPHATE 4 MG/ML 1 ML VIAL ONE (06:55)
[2022-07-18] MEDS ORDERED: NEOSTIGMINE 1 MG/ML 10 ML VIAL ONE (06:55)
[2022-07-18] MEDS ORDERED: PROPOFOL 10 MG/ML 20 ML VIAL IV ONE (06:55)
[2022-07-18] MEDS ORDERED: ROCURONIUM 10 MG/ML (5 ML VIAL) IV ONE (06:55)
[2022-07-18] MEDS ORDERED: ceFAZolin 1,000 MG in SODIUM CHLORIDE 0.9% 1,000 ML IRRIGATION ONE (07:00)
[2022-07-18] MEDS ORDERED: ROPIVACAINE 5 MG/ML 30 ML VIAL MISCELLANE ONE ×2 (07:02→07:55)
--- NOTE | 2022-07-18 08:02 | P.OP ---
Date of Procedure: 07/18/22 Preoperative Diagnosis: Severe osteoarthritis right hip Postoperative Diagnosis: Severe osteoarthritis right hip Procedure(s) Performed: Right total hip arthroplasty with a direct anterior approach Implants: [employer] Polarstem standard size 1 with a collar [employer] R3, 3 hole hemispherical acetabular shell, 48 mm [employer] Reflection 6.5 mm cancellus screw, 20 mm, 25 mm [employer] R3, XLPE 20 acetabular liner [employer] Oxinium femoral head 32 m, -3 All components were press-fit. The articulation is Oxinium on polyethylene. Anesthesia: GETA Surgeon: Byron Jenkins Cotton Presser #1: Clarissa Bang Estimated Blood Loss (ml): 350 Pathology: other (Femoral head) Condition: stable Disposition: PACU Indications for Procedure: After failure of conservative treatment we discussed the surgical and nonsurgical treatment options at length. Patient wishes to proceed with a total hip arthroplasty with a direct anterior approach. Complications specific to this procedure were discussed at length, including but not limited to infection, leg length discrepancy, dislocation, nerve injury, and fracture. Covid-19 was also discussed at length with the patient, and they are aware of the current policies and procedures. The patient was given the option of delaying surgery, but they elect to proceed knowing these risks. Patient is aware of all these complications and informed consent was obtained Operative Findings: The operative findings are consistent with severe osteoarthritis of the right hip Description of Procedure: The patient was seen and evaluated in the preoperative area and the consent was reviewed. The operative site was marked with a skin marker. The patient verified the procedure and operative site. A CT block was placed by anesthesia in the preoperative area. The patient was then brought to the operating room and given preoperative antibiotics intravenously. 1 g of Tranexamic acid was also given intravenously. A general anesthetic was administered by the anesthesia department. The patient was then placed on the Fonda table with the bony prominences well-padded. The hip area was then prepped with a ChloraPrep solution and draped in the usual sterile fashion. A universal timeout was then performed, which confirmed the patient's name, surgical site, ALLERGIES, and procedure being performed on the consent. Next the incision site was located at 1 cm distal and 4 cm lateral to the anterior superior iliac spine. The skin and subcutaneous tissues were sharply incised. Incision was carefully dissected down to the fascia overlying the tensor fascia emely muscle. This fascia was then incised in line with the muscle fibers. Care was taken to stay laterally in order to avoid injuring the lateral femoral cutaneous nerve. Next, using blunt finger dissection, the tensor fascia emely muscle was dissected off its investing fascia. The muscle was then carefully retracted laterally with a cobra retractor over the lateral neck of the femur. Next, the circumflex vessels were identified and cauterized using the Aquamantis device. The anterior hip capsule was then exposed. The capsule was then opened and an inverted T fashion. The retractors were then placed intracapsularly. The retractors were maintained intracapsular throughout the procedure. The proximal femur was then visualized. Fluoroscopic x-rays were then taken in order to evaluate the preoperative leg lengths. A small amount of traction was placed on the leg. The femoral neck was then osteotomized at the appropriate level above the lesser trochanter. A small wedge of bone was then removed from the remaining femoral head. Next, using a corkscrew the femoral head was removed from the acetabulum. On gross visual inspection, the femoral head had complete loss of articular cartilage and multiple periarticular osteophytes. The femoral head was then measured. Attention was then turned to the acetabulum. The acetabulum was exposed and any remaining labrum was excised. Sequential reaming of the acetabulum was performed using fluoroscopic guidance until there was a good bed of bleeding cancellus bone. When the appropriate size was reached, a trial was then placed. The position and fit of the trial was checked with fluoroscopy. The trial was then removed. Then, using fluoroscopic guidance, the final implant was impacted at 20 of anteversion and 40 of abduction, and fully seated in the acetabulum. 2 screws were then placed in the acetabulum. Again fluoroscopy was used to check position of the screws. Next, the liner was then impacted, with a 20 elevated liner located in the anterior superior quadrant. Component locking was confirmed. Attention was then directed to the femur. With the aid of the Fonda table, the femur was externally rotated to approximately 130, extended, and adducted under the opposite leg. A side hook was then placed under the proximal femur, and the side hook elevator was used to elevate the proximal femur while releasing the capsule. Retractors were then placed. A capsular release was performed, as well as a release of the conjoined tendon, which afforded excellent visualization of the proximal femur. Next, a box osteotome was used to lateralize the proximal femur. A alteration hand was then used to locate the femoral canal. Sequential broaching was then performed with appropriate size which afforded excellent fixation in the proximal femur. A trial was then placed with appropriate head and neck, and the hip was gently reduced with the aid of the Fonda table. Fluoroscopy was then used to check position of the components, as well as to evaluate the leg lengths and offset. The leg lengths and offset were measured as closely as possible to ensure stability of the hip. The hip was then gently dislocated and the trials were then removed. Final implants were then impacted and the hip was again reduced. Final fluoroscopic x-rays confirmed that the components were in anatomic position. The leg lengths and offset were measured and were found to coincide with the trial measurements. The hip was also taken through range of motion, and found to be stable. The hip was then copiously irrigated with antibiotic solution with pulsatile lavage. The hip was then irrigated with Irrisept solution. The soft tissues were then injected with a ropivacaine solution. A second dose of 1 g of Tranexamic acid was also given intravenously. The fascia was then closed with 2-0 strata fix suture. The subcutaneous tissue was closed with 3-0 Vicryl. The subcuticular tissue was closed with 3-0 strata fix suture. The skin was then closed with Exofin skin glue. After the glue and dried, and Optifoam silver impregnated dressing was applied. The patient was then transferred to the recovery room in stable condition. The editorial assistant CELINA Love was required due to the complexity of surgery, and the need for skilled surgical assistant certified for positioning, draping, exposure, retraction, and closure of the wound.
--- NOTE | 2022-07-18 08:17 | P.ANPRN ---
Procedure Note - Anesthesia - Nerve Block Performed Right Ernesto Single Time Out Performed: Yes ([id number]) Date of Procedure: 07/18/22 Procedure Start Time: 06:48 Procedure Stop Time: 06:51 Location of Patient: PreOp Indication: Acute Post-Operative Pain, Dx/Pain Location (right hip), Requested by Surgeon Specifically requested for management of pain by DrEmil: Byron Jenkins (') Sedation Type: Sedate with meaningful contact maintained Preparation: Sterile Prep Position: Supine Catheter: None Needle Types: Pajunk Needle Gauge: 18 (100 mm) Ultrasound used to visualize needle placement: Yes Ultrasound used to observe medication spread: Yes Injectate: 0.5% Ropivacaine (see comment for volume) (20 cc and decadron 4 mg) Blood Aspirated: No Pain Paresthesia on Injection Noted: No Resistance on Injection: Normal Image Stored and Saved: Yes Events: Uneventful and Well Tolerated
--- NOTE | 2022-07-18 08:22 | FL ---
Intraoperative/procedural fluoroscopic services were provided for right total hip arthroplasty. Total fluoroscopy time is 42 seconds with a total of 2 submitted images to PACS. Total DAP 1.5164. Please see the operative note for further details.
[2022-07-18] MEDS ORDERED: NALOXONE 0.4 MG/ML 1 ML VIAL IV PRN (08:24)
[2022-07-18] MEDS ORDERED: HYDROmorphone 0.5 MG/0.5 ML SYRINGE IVP PRN ×3 (08:24)
[2022-07-18] MEDS ORDERED: MAGNESIUM HYDROXIDE 2,400 MG/10 ML CUP PO PRN (08:24)
[2022-07-18] MEDS ORDERED: ONDANSETRON 4 MG/2 ML VIAL IVP PRN (08:24)
[2022-07-18] MEDS ORDERED: LACTATED RINGERS 1,000 ML IV ONE (08:30)
[2022-07-18] MEDS: HYDROmorphone 0.5 MG/0.5 ML SYRINGE IVP PRN ×3 (08:30→08:46)
--- NOTE | 2022-07-18 09:02 | XR ---
EXAMINATION TYPE: XR Hip Limited RT DATE OF EXAM: 07/18/2022 8:50 AM INDICATION: Patient age:Female; 82 years old; Reason for study: Status post hip surgery, assess surgical alignment; PHH. COMPARISON: Right hip fluoroscopic images of the same date. TECHNIQUE: The right hip was examined in the frontal projection. FINDINGS: Postsurgical changes from right total hip arthroplasty. Hardware appears intact with approp riate alignment. There is associated surrounding soft tissue gas and edema. No acute fracture or disl ocation. Suture material demonstrated within the pelvis. IMPRESSION: Post surgical changes from right total hip arthroplasty. Hardware appears intact with appropriate ali gnment.
[2022-07-18] MEDS ORDERED: MIDAZOLAM 2 MG/2 ML VIAL IVP ONE (09:17)
[2022-07-18] MEDS: HYDROcodone/APAP 7.5-325MG 1 EACH TAB PO PRN ×2 (13:55→20:57)
[2022-07-18] MEDS: SODIUM CHLORIDE 0.9% 1,000 ML IV SCH (15:30)
[2022-07-18] MEDS ORDERED: LORazepam 0.5 MG TAB PO PRN (20:14)
[2022-07-18] MEDS: cilostazoL 100 MG TAB PO SCH ×2 (20:23→21:11)
[2022-07-18] MEDS: DULoxetine HCL 60 MG CAPSULE.DR PO SCH (20:54)
[2022-07-18] MEDS: FAMOTIDINE 20 MG TAB PO SCH (20:54)
[2022-07-18] MEDS: SENNOSIDES-DOCUSATE SODIUM 1 EACH TAB PO SCH (20:55)
[2022-07-18] MEDS: ASPIRIN 81 MG PO SCH ×2 (20:57→21:10)
[2022-07-18] MEDS: lamoTRIgine 25 MG TAB PO SCH (20:58)
--- NOTE | 2022-07-18 23:22 | P.CONS ---
History of Present Illness - Reason for Consult Consult date: 07/18/22 Medical management - Chief Complaint Status post right total hip arthroplasty - History of Present Illness Patient is a 82-year-old female with a known history of hypertension, hyperlipidemia, osteoarthritis, COPD and prior history of smoking and history of diverticulosis was admitted to the hospital for elective right total hip arthroplasty. Patient underwent the procedure. Currently complaining of some soreness over the right lateral hip side. No complaints of chest pain or shortness of breath. No nausea vomiting abdominal pain or diarrhea. No cough or sputum production. Postoperatively blood pressure was 157/67 pulse 68 respiration 16 and pulse ox 97% on room air. Laboratory data is not available at this time. Status post right total hip arthroplasty with a direct anterior approach. Postoperative day 0 Severe osteoarthritis Hypertension controlled now Hyperlipidemia COPD not in exacerbation Prior history of smoking History of bowel resection due to diverticulosis Anxiety/depression GI and DVT prophylaxis as per primary team. Plan: Patient will be continued on current pain medications and bowel regimen. Encourage incentive spirometry. Continue with DVT prophylaxis with aspirin twice daily. Current with home medications including Cymbalta, Lamictal and also on Pletal. Follow-up CBC and BMP tomorrow. PT OT was consulted. We will continue to follow closely and further recommendations based on the clinical course. Thank you for your consult. 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 (rib removed with this surgery)., .Low anterior resection for diverticulosis. Partial lt mastectomy but found out it wasn't cancer. Cataracts,colonoscopy,hemorrhoidectomy, total right hip replacement 07/18/2022 Past Anesthesia/Blood Transfusion Reactions: Previous Problems w/ Anesthesia Additional Past Anesthesia/Blood Transfusion Reaction / Comm: severe anxiety states combative, agitated and confused post anesthesia.No hx blood transfusion Smoking Status: Former smoker - Past Family History Father Family Medical History: Cancer Mother Family Medical History: Cancer Medications and Allergies Home Medications Medication Instructions Recorded Confirmed Type lamoTRIgine [LaMICtal] 25 mg PO BID 02/11/20 07/18/22 History LORazepam [Ativan] 0.5 mg PO BID PRN 08/12/21 07/18/22 History Cetirizine HCl [Zyrtec] 10 mg PO DAILY PRN 07/07/22 07/07/22 History DULoxetine HCL [Cymbalta] 60 mg PO BID 07/07/22 07/18/22 History cilostazoL [Pletal] 100 mg PO BID 07/07/22 07/14/22 History lisinopriL [Zestril] 5 mg PO DAILY 07/07/22 07/18/22 History traMADol HCl [Ultram] 50 mg PO Q6HR PRN 07/07/22 07/18/22 History Aspirin [Adult Low Dose Aspirin EC] 81 mg PO BID 30 Days #60 tab 07/18/22 Rx HYDROcodone/APAP 7.5-325MG [[place] 1 - 2 tab PO Q6H PRN #32 tab 07/18/22 Rx 7.5-325] Sennosides [Senokot] 2 tab PO DAILY PRN #60 tablet 07/18/22 Rx Allergies Allergy/AdvReac Type Severity Reaction Status Date / Time aripiprazole [From [facility]] AdvReac Unknown TREMORS Verified 07/18/22 06:05 NSAIDS (Non-Steroidal AdvReac unable to Verified 07/18/22 06:05 Anti-Inflamma take related to kidney Physical Exam Vitals: Vital Signs Temp Pulse Pulse Resp BP BP Pulse Ox 07/18/22 20:25 17 07/18/22 19:27 97.6 F 84 17 127/69 98 07/18/22 14:55 97.4 F L 79 18 130/76 98 07/18/22 13:57 67 16 147/65 100 07/18/22 13:00 80 16 144/64 100 07/18/22 12:00 70 16 155/67 99 07/18/22 11:34 72 16 146/67 99 07/18/22 11:09 78 16 147/65 95 07/18/22 10:45 73 16 143/65 99 07/18/22 10:23 68 16 153/67 97 07/18/22 10:08 71 16 157/70 99 07/18/22 09:53 80 16 170/56 100 07/18/22 09:38 76 16 150/69 07/18/22 09:23 58 L 16 173/73 100 07/18/22 09:08 67 16 163/71 100 07/18/22 08:53 72 16 175/69 100 07/18/22 08:38 60 16 146/65 100 07/18/22 08:23 97.1 F L 73 16 151/62 100 07/18/22 06:58 71 15 154/67 97 07/18/22 06:21 96.6 F L 70 18 181/82 99 Intake and Output 07/18/22 07/18/22 07/19/22 14:59 22:59 06:59 Intake Total 1251 Output Total 500 Balance 751 Intake: IV 1251 Output: Urine 150 Estimated Blood Loss 350 Other: Voiding Method Bedpan Diaper # Voids 1 Weight 48.2 kg
[2022-07-19] MEDS: HYDROcodone/APAP 7.5-325MG 1 EACH TAB PO PRN ×2 (02:33→17:01)
[2022-07-19] MEDS: SODIUM CHLORIDE 0.9% 1,000 ML IV SCH ×2 (02:38→20:47)
[2022-07-19] MEDS: LACTATED RINGERS 1,000 ML IV SCH (06:10)
[2022-07-19] MEDS: ASPIRIN 81 MG PO SCH ×2 (09:00→20:45)
[2022-07-19] MEDS: cilostazoL 100 MG TAB PO SCH ×2 (09:00→20:46)
[2022-07-19] MEDS: DULoxetine HCL 60 MG CAPSULE.DR PO SCH ×2 (09:00→20:45)
[2022-07-19] MEDS: FAMOTIDINE 20 MG TAB PO SCH (09:01)
[2022-07-19] MEDS: lamoTRIgine 25 MG TAB PO SCH ×2 (09:01→20:46)
[2022-07-19 09:49] LABS: Basophils # (A) 0.03 X 10*3/uL (0.00-0.10); Basophils % (A) 0.4 %; Eosinophils # (A) 0.02 X 10*3/uL (0.04-0.35); Eosinophils % (A) 0.2 %; HCT 32.7 % (37.2-46.3); HGB 10.7 g/dL (12.0-15.0); Immature Grans, Automated 0.4 %; Lymphocytes # (A) 1.78 X 10*3/uL (0.90-5.00); Lymphocytes % (A) 21.7 %; MCHC 32.7 g/dL (32.0-37.0); MCV 94.8 fL (80.0-97.0); Mean Platelet Volume 10.8 fL (9.5-12.2); Monocytes # (A) 0.89 X 10*3/uL (0.20-1.00); Monocytes % (A) 10.9 %; NRBC Per 100 WBC 0 /100 WBCS (0.0-0.0); Neutrophils # (A) 5.44 X 10*3/uL (1.80-7.70); Neutrophils % (A) 66.4 %; Platelet Count 218 X 10*3/uL (140-440); RBC 3.45 X 10*6/uL (4.10-5.20); RDW 12.1 % (11.5-14.5); WBC 8.19 X 10*3/uL (4.50-10.00)
[2022-07-19 10:16] LABS: African American GFR (CKD) 94.2 (60.0-200.0); Anion Gap 6.5 mmol/L (10.00-18.00); BUN/Creat Ratio 15.71 Ratio (12.00-20.00); Calcium 8.8 mg/dL (8.7-10.3); Carbon Dioxide 28.5 mmol/L (20.0-27.5); Non-African American GFR(CKD) 81.3 (60.0-200.0); Potassium 4.4 mmol/L (3.5-5.5)
--- NOTE | 2022-07-19 11:00 | P.PN ---
Subjective Progress Note Date: 07/19/22 Principal diagnosis: Primary osteoarthritis right hip. Status post total right hip arthroplasty with direct anterior approach. Anxiety. This is an 82-year-old female who is status post total right hip arthroplasty with direct anterior approach. She is having some significant anxiety this morning, especially regarding getting up with physical therapy. She also states that she is feeling a little bit lightheaded. She is planning discharge to inpatient rehab at [facility]. Vital signs are stable. Objective - Vital Signs Vital signs: Vital Signs Temp 97.9 F 07/19/22 07:22 Pulse 75 07/19/22 07:22 Resp 16 07/19/22 07:22 BP 128/67 07/19/22 07:22 Pulse Ox 98 07/19/22 07:22 FiO2 Intake & Output 07/18/22 07/19/22 07/19/22 18:59 06:59 18:59 Intake Total 1251 Output Total 500 Balance 751 Weight 48.2 kg Intake: IV 1251 Output: Urine 150 Estimated Blood Loss 350 Other: Voiding Method Bedpan Bedpan Diaper Diaper # Voids 1 4 - Exam This is an 82-year-old female in no acute distress. She is alert and oriented 3. Exam of the right hip reveals that her dressing is clean, dry and intact. She has full foot and ankle motion without difficulty or pain. Neurovascular status to the lower extremity is intact. - Labs CBC & Chem 7: 07/19/22 05:33 07/19/22 05:33 Labs: Abnormal Lab Results - Last 24 Hours (Table) 07/19/22 07/19/22 Range/Units 05:33 05:33 RBC 3.45 L (4.10-5.20) X 10*6/uL Hgb 10.7 L (12.0-15.0) g/dL Hct 32.7 L (37.2-46.3) % Eosinophils # 0.02 L (0.04-0.35) X 10*3/uL Carbon Dioxide 28.5 H (20.0-27.5) mmol/L Anion Gap 6.50 L (10.00-18.00) mmol/L Glucose 116 H (70-110) mg/dL Assessment and Plan (1) Primary localized osteoarthritis of right hip Current Visit: Yes Status: Acute Code(s): M16.11 - UNILATERAL PRIMARY OSTEOARTHRITIS, RIGHT HIP SNOMED Code(s): 042278447408225 (2) Status post total replacement of right hip Current Visit: Yes Status: Acute Code(s): Z96.641 - PRESENCE OF RIGHT ARTIFICIAL HIP JOINT SNOMED Code(s): 233981278993 (3) Acute anxiety Current Visit: No Status: Acute Code(s): F41.9 - ANXIETY DISORDER, UNSPECIFIED SNOMED Code(s): 07324171 Plan: The clinical findings are discussed with the patient. It is recommended she continue with physical therapy and occupational therapy. She is encouraged to participate with therapy as much as she can. We're planning discharge to inpatient rehab when cleared medically and placement arranged.
[2022-07-19] MEDS: SENNOSIDES-DOCUSATE SODIUM 1 EACH TAB PO SCH (20:47)
[2022-07-20 02:11] VITALS: TEMP 98.3
--- NOTE | 2022-07-20 02:28 | P.PN ---
Subjective Progress Note Date: 07/19/22 - Reason for Consult Consult date: 07/18/22 Medical management - Chief Complaint Status post right total hip arthroplasty - History of Present Illness Patient is a 82-year-old female with a known history of hypertension, hyperlipidemia, osteoarthritis, COPD and prior history of smoking and history of diverticulosis was admitted to the hospital for elective right total hip arthroplasty. Patient underwent the procedure. Currently complaining of some soreness over the right lateral hip side. No complaints of chest pain or shortness of breath. No nausea vomiting abdominal pain or diarrhea. No cough or sputum production. Postoperatively blood pressure was 157/67 pulse 68 respiration 16 and pulse ox 97% on room air. Laboratory data is not available at this time. 07/19/2022 Patient is seen and evaluated in follow-up today. Patient reports to having right hip pain and is status post right total hip arthroplasty. Surgical site is dry and intact and there is some minimal bruising and swelling noted although soft and palpable in the groin area. Patient with significant pain and weakness being evaluated by physical therapy recommending rehab in case management is now following working on ECF. Patient is afebrile and denies chest pain or shortness of breath. Patient is eating and denies any nausea or vomiting. Patient reports no bowel movement as of yet and is urinating with no difficulty. Patient is medically stable. Review of systems: Constitutional: No reports of fatigue, fever, or chills Cardiovascular: No reports of chest pain or palpitations Respiratory: No reports of shortness of breath or cough GI: No reports of nausea, vomiting, or diarrhea : No reports of dysuria or retention Neurovascular: reports of generalized weakness with right hip pain All medications have been reviewed Physical exam: Gen: This is a 82 year old female who is awake,alert and oriented x3, somewhat anxious on exam, thin built, elderly appearing female HEENT: Head is atraumatic, normocephalic. Pupils equal, round. Sclerae is anicteric. NECK: Supple. No JVD. No lymphadenopathy. No thyromegaly. LUNGS: diminished breath sounds bilaterally with no wheezes or rhonchi. No intercostal retractions. HEART: Regular rate and rhythm. No murmur. ABDOMEN: Soft. Bowel sounds are present. No masses. No tenderness. EXTREMITIES: No pedal edema. No calf tenderness. right surgical hip dressing is dry and intact, some minimal bruising noted at the groin area although soft on palpation NEUROLOGICAL: Patient is awake, alert and oriented x3. Cranial nerves 2 through 12 are grossly intact. diffusely weak Assessment: Status post right total hip arthroplasty with a direct anterior approach. Posto perative day 1 Severe osteoarthritis Hypertension controlled now Hyperlipidemia COPD not in exacerbation Prior history of smoking History of bowel resection due to diverticulosis Anxiety/depression GI and DVT prophylaxis as per primary team. Plan: Patient will be continued on current pain medications and bowel regimen. Encourage incentive spirometry at least 10 times per hour while awake Continue with DVT prophylaxis with aspirin twice daily per ortho. Current with home medications including Cymbalta, Lamictal and also on Pletal PT OT following and recommending ecf for continued strength and mobility. recommend some PT tomorrow as well We will continue to follow closely and further recommendations based on the clinical course. Patient is medically stable and case management following and working on ecf. Possible discharge tomorrow Thank you for kindly for this consultation. The impression and plan of care has been dictated by Tarsha Craig, Nurse Practitioner as directed. MD Monalisa I have performed a history and examination and MDM of this patient, discussed the same with the dictator, and agree with the dictator's assessment and plan as written ,documented as a scribe. Based on total visit time, I have performed more than 50% of the visit. Objective - Vital Signs Vital signs: Vital Signs Temp 97.9 F 07/19/22 07:22 Pulse 75 07/19/22 07:22 Resp 16 07/19/22 07:22 BP 128/67 07/19/22 07:22 Pulse Ox 98 07/19/22 07:22 FiO2 Intake & Output 07/18/22 07/19/22 07/19/22 18:59 06:59 18:59 Intake Total 1251 Output Total 500 Balance 751 Weight 48.2 kg Intake: IV 1251 Output: Urine 150 Estimated Blood Loss 350 Other: Voiding Method Bedpan Bedpan Diaper Diaper # Voids 1 4 - Labs CBC & Chem 7: 07/19/22 05:33 07/19/22 05:33 Labs: Abnormal Lab Results - Last 24 Hours (Table) 07/19/22 Range/Units 05:33 RBC 3.45 L (4.10-5.20) X 10*6/uL Hgb 10.7 L (12.0-15.0) g/dL Hct 32.7 L (37.2-46.3) % Eosinophils # 0.02 L (0.04-0.35) X 10*3/uL
[2022-07-20] MEDS: HYDROcodone/APAP 7.5-325MG 1 EACH TAB PO PRN (03:06)
[2022-07-20] MEDS: LACTATED RINGERS 1,000 ML IV SCH (07:47)
[2022-07-20 07:55] VITALS: BP 134/76; PULSE 89; RESP 17
[2022-07-20] MEDS ORDERED: FAMOTIDINE 20 MG TAB PO SCH (09:00)
[2022-07-20] MEDS: cilostazoL 100 MG TAB PO SCH (09:46)
[2022-07-20] MEDS: DULoxetine HCL 60 MG CAPSULE.DR PO SCH (09:46)
[2022-07-20] MEDS: lamoTRIgine 25 MG TAB PO SCH (09:47)
[2022-07-20] MEDS: ASPIRIN 81 MG PO SCH (09:47)
--- NOTE | 2022-07-20 11:30 | P.DS ---
Providers Expected date of discharge: 07/20/22 Attending physician: Byron Jenkins Consults: 07/18/22 08:24 Consult Physician Routine Consulting Provider: Cathie Thurston Consult Reason/Comments: medical management Do you want consulting provider notified?: Yes Primary care physician: Paul García - Discharge Diagnosis(es) (1) Primary localized osteoarthritis of right hip Current Visit: Yes Status: Acute (2) Status post total replacement of right hip Current Visit: Yes Status: Acute Hospital Course: This is a 82-year-old female with known history of degenerative arthritis of the right hip. The patient presented for evaluation as an outpatient. After discussion and consideration patient elects to proceed with total hip arthroplasty. The patient is seen preoperatively by Dr. Jenkins and medically cleared for surgery by their primary care physician. Patient is admitted to [facility] on 07/18/2022 for total hip arthroplasty. The procedure is performed without complication or sequelae. The patient is doing well postoperatively. Labs and vital signs are stable on day of discharge. On day of discharge patient's hip incision is healing well. There is minimal erythema. There is no drainage noted at this time. There is minimal soft tissue swelling to the hip and thigh. Patient has full foot and ankle motion without difficulty or pain. Calf is soft and nontender to palpation. Neurovascular status to the right lower extremity is intact. Patient is discharged to rehab in good condition. Please see med rec for accurate list of home medications. Plan - Discharge Summary Discharge Rx Participant: Yes New Discharge Prescriptions: New Aspirin [Adult Low Dose Aspirin EC] 81 mg PO BID 30 Days #60 tab HYDROcodone/APAP 7.5-325MG [[place] 7.5-325] 1 - 2 tab PO Q6H PRN #32 tab PRN Reason: Pain Sennosides [Senokot] 2 tab PO DAILY PRN #60 tablet PRN Reason: Constipation Magnesium Hydroxide [Milk of Magnesia Concentrate] 2,400 mg PO DAILY PRN ml PRN Reason: Constipation Famotidine [Pepcid] 20 mg PO DAILY tab Continue lamoTRIgine [LaMICtal] 25 mg PO BID DULoxetine HCL [Cymbalta] 60 mg PO BID cilostazoL [Pletal] 100 mg PO BID lisinopriL [Zestril] 5 mg PO DAILY Cetirizine HCl [Zyrtec] 10 mg PO DAILY PRN PRN Reason: Congestion LORazepam [Ativan] 0.5 mg PO BID PRN #4 tab PRN Reason: Anxiety traMADol HCl [Ultram] 50 mg PO Q6HR PRN #4 tab PRN Reason: Pain Discharge Medication List lamoTRIgine [LaMICtal] 25 mg PO BID 02/11/20 [History] Cetirizine HCl [Zyrtec] 10 mg PO DAILY PRN 07/07/22 [History] DULoxetine HCL [Cymbalta] 60 mg PO BID 07/07/22 [History] cilostazoL [Pletal] 100 mg PO BID 07/07/22 [History] lisinopriL [Zestril] 5 mg PO DAILY 07/07/22 [History] Aspirin [Adult Low Dose Aspirin EC] 81 mg PO BID 30 Days #60 tab 07/18/22 [Rx] HYDROcodone/APAP 7.5-325MG [[place] 7.5-325] 1 - 2 tab PO Q6H PRN #32 tab 07/18/22 [Rx] Sennosides [Senokot] 2 tab PO DAILY PRN #60 tablet 07/18/22 [Rx] Famotidine [Pepcid] 20 mg PO DAILY tab 07/20/22 [Rx] LORazepam [Ativan] 0.5 mg PO BID PRN #4 tab 07/20/22 [Rx] Magnesium Hydroxide [Milk of Magnesia Concentrate] 2,400 mg PO DAILY PRN ml 07/20/22 [Rx] traMADol HCl [Ultram] 50 mg PO Q6HR PRN #4 tab 07/20/22 [Rx] Follow up Appointment(s)/Referral(s): Paul García DO [Primary Care Provider] - 1 Week [facility], [NON-STAFF] - As Needed Byron Jenkins DO [Doctor of Osteopathic Medicine] - 07/31/22 1:20 pm Activity/Diet/Wound Care/Special Instructions: Weightbearing as tolerated with walker. Leave dressing intact. Dressing may be removed by home care nurse or by patient in 7 days. Then change dressing twice daily until follow up. May shower with initial dressing intact and after removal. If dressing become saturated, please remove. Please take aspirin 81mg twice daily for 30 days to prevent blood clots. Recommend use of compression stockings daily until follow up to help prevent swelling and blood clots. May remove at night before sleeping. Please follow-up with [facility] in 2 weeks and call with any questions or concerns, . Discharge Disposition: TRANSFER TO SNF/ECF
[2022-07-20] MEDS: SODIUM CHLORIDE 0.9% 1,000 ML IV SCH (11:44)
--- NOTE | 2022-07-21 05:54 | P.PN ---
Subjective Progress Note Date: 07/20/22 - Reason for Consult Consult date: 07/18/22 Medical management - Chief Complaint Status post right total hip arthroplasty - History of Present Illness Patient is a 82-year-old female with a known history of hypertension, hyperlipidemia, osteoarthritis, COPD and prior history of smoking and history of diverticulosis was admitted to the hospital for elective right total hip arthroplasty. Patient underwent the procedure. Currently complaining of some soreness over the right lateral hip side. No complaints of chest pain or shortness of breath. No nausea vomiting abdominal pain or diarrhea. No cough or sputum production. Postoperatively blood pressure was 157/67 pulse 68 respiration 16 and pulse ox 97% on room air. Laboratory data is not available at this time. 07/19/2022 Patient is seen and evaluated in follow-up today. Patient reports to having right hip pain and is status post right total hip arthroplasty. Surgical site is dry and intact and there is some minimal bruising and swelling noted although soft and palpable in the groin area. Patient with significant pain and weakness being evaluated by physical therapy recommending rehab in case management is now following working on ECF. Patient is afebrile and denies chest pain or shortness of breath. Patient is eating and denies any nausea or vomiting. Patient reports no bowel movement as of yet and is urinating with no difficulty. Patient is medically stable. 07/20/2022 Patient is seen and evaluated in follow-up this morning continues to report some right hip pain although slightly improved. Patient continues with weakness and arranging for ECF at [facility]. Orthopedics following and will continue working with physical therapy daily. Home medications have been reviewed and resumed. Patient is afebrile with no reports of shortness of breath or chest pain noted. Patient tolerating diet and encouraged oral intake. Recommend supplements between meals. Review of systems: Constitutional: No reports of fatigue, fever, or chills Cardiovascular: No reports of chest pain or palpitations Respiratory: No reports of shortness of breath or cough GI: No reports of nausea, vomiting, or diarrhea : No reports of dysuria or retention Neurovascular: reports of generalized weakness with right hip pain All medications have been reviewed Physical exam: Gen: This is a 82 year old female who is awake,alert and oriented x3, somewhat anxious on exam, thin built, elderly appearing female HEENT: Head is atraumatic, normocephalic. Pupils equal, round. Sclerae is anicteric. NECK: Supple. No JVD. No lymphadenopathy. No thyromegaly. LUNGS: diminished breath sounds bilaterally with no wheezes or rhonchi. No intercostal retractions. HEART: Regular rate and rhythm. No murmur. ABDOMEN: Soft. Bowel sounds are present. No masses. No tenderness. EXTREMITIES: No pedal edema. No calf tenderness. right surgical hip dressing is dry and intact, some minimal bruising noted at the groin area although soft on palpation NEUROLOGICAL: Patient is awake, alert and oriented x3. Cranial nerves 2 through 12 are grossly intact. diffusely weak Assessment: Status post right total hip arthroplasty with a direct anterior approach. Po stoperative day 2 Severe osteoarthritis Hypertension controlled now Hyperlipidemia COPD not in exacerbation Prior history of smoking History of bowel resection due to diverticulosis Anxiety/depression GI and DVT prophylaxis as per primary team. Plan: Patient will be continued on current pain medications and bowel regimen. Encourage incentive spirometry at least 10 times per hour while awake Continue with DVT prophylaxis with aspirin twice daily per ortho. Current with home medications including Cymbalta, Lamictal and also on Pletal PT OT following and recommending ecf for continued strength and mobility. Case management working on ECF and patient will be going to [facility] likely today We will continue to follow closely and further recommendations based on the clinical course. Patient is medically stable for discharge to ECF Thank you for kindly for this consultation. The impression and plan of care has been dictated by Tarsha Craig, Nurse Practitioner as directed. MD Monalisa I have performed a history and examination and MDM of this patient, discussed the same with the dictator, and agree with the dictator's assessment and plan as written ,documented as a scribe. Based on total visit time, I have performed more than 50% of the visit. Objective - Vital Signs Vital signs: Vital Signs Temp 98.3 F 07/20/22 07:04 Pulse 89 07/20/22 07:04 Resp 17 07/20/22 07:04 BP 134/76 07/20/22 07:04 Pulse Ox 96 07/20/22 07:04 FiO2 Intake & Output 07/19/22 07/20/22 07/20/22 18:59 06:59 18:59 Other: Voiding Method Toilet Toilet Diaper Diaper # Voids 2 1 - Labs CBC & Chem 7: 07/19/22 05:33 07/19/22 05:33 Labs: Abnormal Lab Results - Last 24 Hours (Table) 07/19/22 07/19/22 Range/Units 05:33 05:33 RBC 3.45 L (4.10-5.20) X 10*6/uL Hgb 10.7 L (12.0-15.0) g/dL Hct 32.7 L (37.2-46.3) % Eosinophils # 0.02 L (0.04-0.35) X 10*3/uL Carbon Dioxide 28.5 H (20.0-27.5) mmol/L Anion Gap 6.50 L (10.00-18.00) mmol/L Glucose 116 H (70-110) mg/dL
== END 2022-07-20 13:49 ==
LOC: OR 05:40 → 4SSUR 08:15 → OR 07-20 13:49
PROVIDERS: ATTEND Orthopaedic Surgery
DX: M16.11 Unilateral primary osteoarthritis, right hip (principal); G89.18 Other acute postprocedural pain; E78.5 Hyperlipidemia, unspecified; I10 Essential (primary) hypertension; M19.90 Unspecified osteoarthritis, unspecified site; J44.9 Chronic obstructive pulmonary disease, unspecified; J18.9 Pneumonia, unspecified organism; Z98.84 Bariatric surgery status; Z90.49 Acquired absence of other specified parts of digestive tract; Z90.710 Acquired absence of both cervix and uterus; Z96.641 Presence of right artificial hip joint; Z87.891 Personal history of nicotine dependence; Z80.8 Family history of malignant neoplasm of other organs or systems; Z79.82 Long term (current) use of aspirin; Z79.899 Other long term (current) drug therapy; Z88.8 Allergy status to other drugs, medicaments and biological substances
CPT/HCPCS: 97161; 97166; 64447; 76942; 80048; 85025; 73501; 27130; C1776; J2250; J1100; J2405; J0690; J2795; J1170; 86850; 86900; 86901; 88300

== ENCOUNTER → 2022-07-27 | Outpatient (CLI) | payer MEDICARE, OTHER ==
--- NOTE | 2022-07-27 19:07 | US ---
EXAMINATION TYPE: US venous doppler duplex LE RT DATE OF EXAM: 07/27/2022 2:45 PM COMPARISON: US 2012 CLINICAL HISTORY: 82-year-old female R60.0 EDEMA. Right leg pain and swelling SIDE PERFORMED: Right TECHNIQUE: The lower extremity deep venous system is examined utilizing real time linear array sonog misti with graded compression, doppler sonography and color-flow sonography. VESSELS IMAGED: Common Femoral Vein Deep Femoral Vein Greater Saphenous Vein * Femoral Vein Popliteal Vein Small Saphenous Vein * Proximal Calf Veins (* superficial vessels) Right Leg: Appears negative for DVT IMPRESSION: No evidence for DVT within the right lower extremity imaged from the groin to the upper calf.
== END | disposition home or self-care (01) ==
LOC: RADUSWWP 13:58
PROVIDERS: ATTEND Family Medicine
DX: R60.0 Localized edema (principal)

== ENCOUNTER 2023-02-09 15:40 | Emergency (ER) | payer MEDICARE, OTHER ==
[2023-02-09 17:45] LABS: Basophils % (A) 1 %; Eosinophils # (A) 0.2 k/uL (0-0.7); Eosinophils % (A) 2 %; HGB 13.5 gm/dL (11.4-16.0); Lymphocytes # (A) 2.2 k/uL (1.0-4.8); Lymphocytes % (A) 32 %; MCH 30.3 pg (25.0-35.0); MCV 91.9 fL (80.0-100.0); Mean Platelet Volume 8.5; Monocytes # (A) 0.3 k/uL (0-1.0); Monocytes % (A) 5 %; Neutrophils # (A) 4.1 k/uL (1.3-7.7); Neutrophils % (A) 58 %; Platelet Count 400 k/uL (150-450); RBC 4.47 m/uL (3.80-5.40); WBC 6.9 k/uL (3.8-10.6)
[2023-02-09 17:52] LABS: ALT 17 U/L (4-34); AST 29 U/L (14-36); African American GFR (CKD) 44 (>60 ml/min/1.73 sqM); Albumin 4.4 g/dL (3.5-5.0); Alkaline Phosphatase 105 U/L (38-126); Anion Gap 16 mmol/L; Blood Urea Nitrogen 27 mg/dL (7-17); Carbon Dioxide 17 mmol/L (22-30); Chloride 103 mmol/L (98-107); Creatine Kinase 36 U/L (30-135); Glucose 155 mg/dL (74-99); Non-African American GFR(CKD) 38 (>60 ml/min/1.73 sqM); Potassium 5.3 mmol/L (3.5-5.1); Sodium 136 mmol/L (137-145); Total Bilirubin 0.8 mg/dL (0.2-1.3); Total Protein 6.7 g/dL (6.3-8.2)
--- NOTE | 2023-02-09 18:34 | CT ---
EXAMINATION TYPE: CT brain cspine wo con CT DLP: 1165 mGycm, Automated exposure control for dose reduction was used. DATE OF EXAM: 02/09/2023 6:18 PM COMPARISON: None. CLINICAL INDICATION:Female, 82 years old with history of syncope; Syncopal episode, pt hit rt side of head. Suspected Seizure. TECHNIQUE: Brain: Multiple axial CT images of the brain were obtained without IV contrast. Cspine: Axial CT images from the skull base to the inferior aspect of T2 we obtained without intraven ous contrast. Coronal and sagittal reformatted images were also reviewed. FINDINGS: Brain: Extra-axial spaces: No abnormal extra-axial fluid collections. Ventricular system: Dilatation in proportion to cerebral atrophy. Cerebral parenchyma: Cerebral atrophy. No acute intraparenchymal hemorrhage or mass effect. The mckeon -white junction is well differentiated. Scattered hypoattenuating areas are seen within the white mat ter. Cerebellum: Unremarkable. Mass effect: No evidence of midline shift. Intracranial vasculature: Atherosclerotic calcifications of the intracranial vessels. Soft tissues: Normal. Calvarium/osseous structures: No depressed skull fracture. Paranasal sinuses and mastoid air cells: Clear. Visualized orbits: Bilateral aphakia Cervical spine: Fracture: None. Osseous structures: Multilevel degenerative disc disease changes with endplate spurring and disc oste ophyte complex's. Vertebral alignment: Reversal of the curvature of the spine. Spinal canal/Neural Foramina: Disc osteophyte complexes at C4 through C7 with at least mild spinal ca nal stenosis. Facet joint uncovertebral joint arthropathy scattered throughout the cervical spine wit h varying degrees of neural foraminal stenosis. Neck soft tissues: Prevertebral soft tissues are within normal limits. Other: The airway is patent. The lung apices are clear. IMPRESSION: 1. No acute intracranial process. 2. Nonspecific white matter changes, likely secondary to chronic small vessel ischemic disease. 3. No evidence of cervical spine fracture. 4. Moderate multilevel degenerative disc disease.
--- NOTE | 2023-02-09 20:30 | XR ---
EXAMINATION TYPE: XR chest 2V DATE OF EXAM: 02/09/2023 7:57 PM CLINICAL INDICATION:Female, 82 years old with history of syncope; [facility] COMPARISON: Chest radiographs from 12/13/2017, CT chest 11/23/2014. TECHNIQUE: XR chest 2V Frontal and lateral views of the chest. FINDINGS: Lungs/Pleura: There is flattening of the diaphragm with increased lucency of the lungs. No evidence o f pneumothorax, pleural effusion or focal consolidation. Pulmonary vascularity: Unremarkable. Heart/mediastinum: Cardiomediastinal silhouette is unremarkable. Partially calcified right pulmonary hilum lymph nodes. Musculoskeletal: No acute osseous pathology. IMPRESSION: 1. Right perihilar peripherally calcified lesions thought to represent granulomas. No recent CT ches t is available for comparison. 2. COPD changes.
--- NOTE | 2023-02-09 21:19 | ED ---
Seizure HPI - General Chief Complaint: Seizure Stated Complaint: Possible seizure Time Seen by Provider: 02/09/23 15:45 Source: EMS Mode of arrival: EMS Limitations: no limitations - History of Present Illness Initial Comments: 82-year-old female brought into the emergency department for seizure versus syncope. It is reported that the patient was in [facility]. She states that she began feeling very lightheaded. She remembers falling to the ground and hitting her head. She states that she does take anticoagulation however this is not listed on the patient's chart. She admits that she lost consciousness for a few seconds and awoke to staff trying to wake her up. It is unsure if the patient had seizure-like activity but this was possibly reported to EMS. She denies history of seizures. Patient did not bite her tongue. She had no bowel or bladder incontinence. Patient arrives and does have some significant loose stools. States that this has been chronic for her ever since she had bowel surgery. She is currently under the care of a GI doctor for her diarrhea. She denies having any chest pain or shortness of breath prior to her passing out. She has some nausea with no vomiting. No black or bloody stools. No other alleviating, precipitating or modifying factors - Related Data Home Medications Medication Instructions Recorded Confirmed lamoTRIgine [LaMICtal] 25 mg PO BID 02/11/20 02/09/23 cilostazoL [Pletal] 100 mg PO BID 07/07/22 02/09/23 lisinopriL [Zestril] 5 mg PO DAILY 07/07/22 02/09/23 DULoxetine HCL [Cymbalta] 30 mg PO BID 02/09/23 02/09/23 Famotidine [Pepcid] 40 mg PO DAILY 02/09/23 02/09/23 LORazepam [Ativan] 0.5 mg PO DAILY PRN 02/09/23 02/09/23 Previous Rx's Medication Instructions Recorded traMADol HCl [Ultram] 50 mg PO Q6HR PRN #4 tab 07/20/22 Cholestyramine (with Sugar) 4 gm PO BID PRN #20 packet 02/09/23 [Cholestyramine Packet] Allergies Allergy/AdvReac Type Severity Reaction Status Date / Time aripiprazole [From Abiliy] AdvReac Unknown TREMORS Verified 02/09/23 17:51 NSAIDS (Non-Steroidal AdvReac unable to Verified 02/09/23 17:51 Anti-Inflamma take related to kidney Review of Systems ROS Statement: Those systems with pertinent positive or pertinent negative responses have been documented in the HPI. ROS Other: All systems not noted in ROS Statement are negative. Past Medical History Past Medical History: COPD, Osteoarthritis (OA), Pneumonia Additional Past Medical History / Comment(s): constipation, hx of diverticulitis with bowel resection, 1 kidney removed at 17 yrs old due to infection., anemia, Hemorrhoids History of Any Multi-Drug Resistant Organisms: None Reported Past Surgical History: Bowel Resection, Cholecystectomy, Hysterectomy, Orthopedic Surgery Additional Past Surgical History / Comment(s): left kidney removed as a teen d/t infection. (rib removed with this surgery)., .Low anterior resection for diverticulosis. Partial lt mastectomy but found out it wasn't cancer. 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 Past Psychological History: Anxiety, Bipolar, Depression, Panic Disorder Smoking Status: Former smoker Past Alcohol Use History: None Reported Past Drug Use History: None Reported - Past Family History Father Family Medical History: Cancer Mother Family Medical History: Cancer General Exam Limitations: no limitations General appearance: alert, in no apparent distress Head exam: Present: atraumatic, normocephalic, normal inspection Eye exam: Present: normal appearance, PERRL, EOMI. Absent: scleral icterus, conjunctival injection, periorbital swelling ENT exam: Present: normal exam, mucous membranes moist Neck exam: Present: normal inspection. Absent: tenderness, meningismus, lymphadenopathy Respiratory exam: Present: normal lung sounds bilaterally. Absent: respiratory distress, wheezes, rales, rhonchi, stridor Cardiovascular Exam: Present: regular rate, normal rhythm, normal heart sounds. Absent: systolic murmur, diastolic murmur, rubs, gallop, clicks GI/Abdominal exam: Present: soft, normal bowel sounds. Absent: distended, tenderness, guarding, rebound, rigid Extremities exam: Present: normal inspection, full ROM, normal capillary refill. Absent: tenderness, pedal edema, joint swelling, calf tenderness Back exam: Present: normal inspection Neurological exam: Present: alert, oriented X3, CN II-XII intact Psychiatric exam: Present: normal affect, normal mood Skin exam: Present: warm, dry, intact, normal color. Absent: rash Course Vital Signs 02/09/23 02/09/23 02/09/23 15:53 18:30 21:47 Pulse Rate 80 85 100 Respiratory 18 18 19 Rate Blood Pressure 92/69 130/69 115/96 O2 Sat by Pulse 96 99 97 Oximetry Medical Decision Making - Medical Decision Making Was pt. sent in by a medical professional or institution (, PA, WHOLESALE BUYER, urgent care, hospital, or fpc...) When possible be specific @ -No Did you speak to anyone other than the patient for history (EMS, parent, family, police, friend...)? What history was obtained from this source @ -EMS Did you review nursing and triage notes (agree or disagree)? Why? @ -I reviewed and agree with nursing and triage notes Were old charts reviewed (outside hosp., previous admission, EMS record, old EKG, old radiological studies, urgent care reports/EKG's, fpc records)? Report findings @ -No old charts were reviewed Differential Diagnosis (chest pain, altered mental status, abdominal pain women, abdominal pain men, vaginal bleeding, weakness, fever, dyspnea, syncope, headache, dizziness, GI bleed, back pain, seizure, CVA, palpatations, mental health, musculoskeletal)? @ -Differential Syncope: Valvular disease, hypertrophic cardiomyopathy, pulmonary embolism, tamponade, tachycardia, bradycardia, [place], hypovolemia, hemorrhage, dissection, anemia, intracranial hemorrhage, seizure, hypoglycemia, carbon monoxide poisoning, this is not meant to be an all-inclusive list. EKG interpreted by me (3pts min.). @ -Yes and demonstrates sinus rhythm rate 73. AZ interval 157. QRS 85. QTC of 419. No acute ST segment elevations or depressions X-rays interpreted by me (1pt min.). @ -Yes and demonstrates COPD changes CT interpreted by me (1pt min.). @ -Yes and does not demonstrate any acute intracranial process U/S interpreted by me (1pt. min.). @ -None done What testing was considered but not performed or refused? (CT, X-rays, U/S, labs)? Why? @ -EEG however patient refused to be admitted What meds were considered but not given or refused? Why? @ -None Did you discuss the management of the patient with other professionals (professionals i.e. , CELINA, WHOLESALE BUYER, lab, RT, psych nurse, social media content manager, equipment operator/laborer/supervisor, teacher, enforcement safety officer, case packer and sealer)? Give summary @ -No Was smoking cessation discussed for >3mins.? @ -No Was critical care preformed (if so, how long)? @ -No Were there social determinants of health that impacted care today? How? (Homelessness, low income, unemployed, alcoholism, drug addiction, transportation, low edu. Level, literacy, decrease access to med. care, shelter, rehab)? @ -No Was there de-escalation of care discussed even if they declined (Discuss DNR or withdrawal of care, Hospice)? DNR status @ -No What co-morbidities impacted this encounter? (DM, HTN, Smoking, COPD, CAD, Ca ncer, CVA, ARF, Chemo, Hep., AIDS, mental health diagnosis, sleep apnea, morbid obesity)? @ -Chronic diarrhea Was patient admitted / discharged? Hospital course, mention meds given and route, prescriptions, significant lab abnormalities, going to OR and other pe rtinent info. @ -Upon arrival patient was placed into room 2. Thorough history and physical exam was performed. IV is established and laboratory studies were conducted. Patient does go for a CT of her head and cervical spine. Chest x-rays performed. Upon return of the results the patient is reevaluated. I did recommend admission for EEG and neurology consultation due to questionable seizure-like activity. Patient states that she wants to go home. She is of sound mind and capable of making her own decisions. Patient will be discharged and instructed to follow up with her primary care doctor. May need referral to neurology. Return for any new or worsening symptoms. Patient agreeable to the treatment plan was discharged in stable condition Undiagnosed new problem with uncertain prognosis? @ -Yes Drug Therapy requiring intensive monitoring for toxicity (Heparin, Nitro, Insulin, Cardizem)? @ -No Were any procedures done? @ -No Diagnosis/symptom? @ -Acute fall, syncope versus seizure, blunt head trauma Acute, or Chronic, or Acute on Chronic? @ -Acute Uncomplicated (without systemic symptoms) or Complicated (systemic symptoms)? @ -Complicated Side effects of treatment? @ -No Exacerbation, Progression, or Severe Exacerbation? @ -No Poses a threat to life or bodily function? How? (Chest pain, [place], [place], pneumonia, PE, COPD, DKA, ARF, appy, cholecystitis, CVA, Diverticulitis, Homicidal, Suicidal, threat to staff... and all critical care pts) @ -No - Lab Data Result diagrams: 02/09/23 17:37 02/09/23 17:37 Lab Results 02/09/23 02/09/23 02/09/23 Range/Units 17:37 17:37 17:37 WBC 6.9 (3.8-10.6) k/uL RBC 4.47 (3.80-5.40) m/uL Hgb 13.5 (11.4-16.0) gm/dL Hct 41.0 (34.0-46.0) % MCV 91.9 (80.0-100.0) fL MCH 30.3 (25.0-35.0) pg MCHC 33.0 (31.0-37.0) g/dL RDW 13.0 (11.5-15.5) % Plt Count 400 (150-450) k/uL MPV 8.5 Neutrophils % 58 % Lymphocytes % 32 % Monocytes % 5 % Eosinophils % 2 % Basophils % 1 % Neutrophils # 4.1 (1.3-7.7) k/uL Lymphocytes # 2.2 (1.0-4.8) k/uL Monocytes # 0.3 (0-1.0) k/uL Eosinophils # 0.2 (0-0.7) k/uL Basophils # 0.0 (0-0.2) k/uL Sodium 136 L (137-145) mmol/L Potassium 5.3 H (3.5-5.1) mmol/L Chloride 103 (98-107) mmol/L Carbon Dioxide 17 L (22-30) mmol/L Anion Gap 16 mmol/L BUN 27 H (7-17) mg/dL Creatinine 1.31 H (0.52-1.04) mg/dL Est GFR (CKD-EPI)AfAm 44 (>60 ml/min/1.73 sqM) Est GFR (CKD-EPI)NonAf 38 (>60 ml/min/1.73 sqM) Glucose 155 H (74-99) mg/dL Calcium 10.0 (8.4-10.2) mg/dL Total Bilirubin 0.8 (0.2-1.3) mg/dL AST 29 (14-36) U/L ALT 17 (4-34) U/L Alkaline Phosphatase 105 (38-126) U/L Creatine Kinase 36 (30-135) U/L Troponin I <0.012 (0.000-0.034) ng/mL Total Protein 6.7 (6.3-8.2) g/dL Albumin 4.4 (3.5-5.0) g/dL Disposition Clinical Impression: Syncope Disposition: HOME SELF-CARE Condition: Stable Instructions (If sedation given, give patient instructions): Syncope (ED) Additional Instructions: Please follow up with your primary care doctor and return for any new or worsening symptoms. Prescriptions: Cholestyramine (with Sugar) [Cholestyramine Packet] 4 gm PO BID PRN #20 packet PRN Reason: Diarrhea Is patient prescribed a controlled substance at d/c from ED?: No Referrals: Paul García DO [Primary Care Provider] - 1-2 days Time of Disposition: 21:22
[2023-02-09 21:54] VITALS: BP 115/96; PULSE 100; RESP 19
== END 2023-02-09 21:48 | disposition home or self-care (01) ==
LOC: EC 15:40
DX: R55 Syncope and collapse (principal); J44.9 Chronic obstructive pulmonary disease, unspecified; Z79.899 Other long term (current) drug therapy; Z88.6 Allergy status to analgesic agent; Z88.8 Allergy status to other drugs, medicaments and biological substances; Z86.59 Personal history of other mental and behavioral disorders; Z87.891 Personal history of nicotine dependence; Z90.49 Acquired absence of other specified parts of digestive tract
CPT/HCPCS: 36415; 70450; 71046; 72125; 80053; 82550; 84484; 85025; 93005; 99285

== ENCOUNTER → 2023-08-15 | Outpatient (CLI) | payer MEDICARE, OTHER ==
--- NOTE | 2023-08-16 13:17 | US ---
EXAMINATION TYPE: US kidneys/renal and bladder DATE OF EXAM: 08/15/2023 COMPARISON: NONE CLINICAL INDICATION: Female, 83 years old with history of R94.4 ABNORMAL RESULTS OF KIDNEY FUNCTION S TUDIES; Abn kidney function left kidney removed EXAM MEASUREMENTS: Right Kidney: 11.4 x 4.0 x 4.5 cm Left Kidney: Surgically absent Right Kidney: No hydronephrosis or masses seen Left Kidney: Surgically absent Bladder: Not fully distended. Bilateral Jets seen: no The bladder is limited by incomplete distention. Right renal cortical echogenicity and thickness is n ormal. IMPRESSION: 1. Status post left nephrectomy. Right kidney has a normal appearance by ultrasound.
== END | disposition home or self-care (01) ==
LOC: RADUSWWP 08:50
PROVIDERS: ATTEND Family Medicine
DX: R94.4 Abnormal results of kidney function studies (principal); Z98.890 Other specified postprocedural states
CPT/HCPCS: 76770

== ENCOUNTER 2023-12-01 11:52 | Emergency (ER) | payer MEDICARE, OTHER ==
--- NOTE | 2023-12-01 12:25 | ED ---
Extremity Problem HPI - General Chief complaint: Extremity Problem,Nontraumatic Stated complaint: L Leg Blood Clot Time Seen by Provider: 12/01/23 12:05 Source: patient, RN notes reviewed Mode of arrival: ambulatory Limitations: no limitations - History of Present Illness Initial comments: Is an 83-year-old female presents the emergency department with referral from [facility] urgent care for chief complaint of potential blood clot. Patient states that over the past 2 weeks she has had worsening pain of the left lower extremity, when she woke up this morning she had shooting pains from her left foot into the left knee. Patient denies any recent injury, trauma or falls to the left lower extremity. Patient states that she has a history of bilateral lower extremity blood clots, denies DVT, denies recent or current blood thinner use. Patient denies recent prolonged travel, pain or tenderness, erythema of lower extremities, shortness of breath, chest pain, palpitations, dizziness or lightheadedness. Had total right hip replacement roughly 1 year ago. - Related Data Home Medications Medication Instructions Recorded Confirmed lamoTRIgine [LaMICtal] 25 mg PO BID 02/11/20 02/09/23 cilostazoL [Pletal] 100 mg PO BID 07/07/22 02/09/23 lisinopriL [Zestril] 5 mg PO DAILY 07/07/22 02/09/23 DULoxetine HCL [Cymbalta] 30 mg PO BID 02/09/23 02/09/23 Famotidine [Pepcid] 40 mg PO DAILY 02/09/23 02/09/23 LORazepam [Ativan] 0.5 mg PO DAILY PRN 02/09/23 02/09/23 Previous Rx's Medication Instructions Recorded traMADol HCl [Ultram] 50 mg PO Q6HR PRN #4 tab 07/20/22 Cholestyramine (with Sugar) 4 gm PO BID PRN #20 packet 02/09/23 [Cholestyramine Packet] Allergies Allergy/AdvReac Type Severity Reaction Status Date / Time aripiprazole [From Abilify] AdvReac Unknown TREMORS Verified 02/09/23 17:51 NSAIDS (Non-Steroidal AdvReac unable to Verified 02/09/23 17:51 Anti-Inflamma take related to kidney Review of Systems ROS Statement: Those systems with pertinent positive or pertinent negative responses have been documented in the HPI. ROS Other: All systems not noted in ROS Statement are negative. Past Medical History Past Medical History: Osteoarthritis (OA), Pneumonia, Renal Disease Additional Past Medical History / Comment(s): constipation, hx of diverticulitis with bowel resection, 1 kidney removed at 17 yrs old due to infection., anemia, Hemorrhoids History of Any Multi-Drug Resistant Organisms: None Reported Past Surgical History: Bowel Resection, Cholecystectomy, Hysterectomy, Orthopedic Surgery Additional Past Surgical History / Comment(s): left kidney removed as a teen d/t infection. (rib removed with this surgery)., .Low anterior resection for diverticulosis. Partial lt mastectomy but found out it wasn't cancer. 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 Past Psychological History: Anxiety, Bipolar, Depression, Panic Disorder Smoking Status: Former smoker Past Alcohol Use History: None Reported Past Drug Use History: None Reported - Past Family History Father Family Medical History: Cancer Mother Family Medical History: Cancer General Exam Limitations: no limitations General appearance: alert, in no apparent distress Head exam: Present: atraumatic, normocephalic, normal inspection Eye exam: Present: normal appearance, PERRL, EOMI. Absent: scleral icterus, conjunctival injection, periorbital swelling ENT exam: Present: normal exam, mucous membranes moist Neck exam: Present: normal inspection. Absent: tenderness, meningismus, lymphadenopathy Respiratory exam: Present: normal lung sounds bilaterally. Absent: respiratory distress, wheezes, rales, rhonchi, stridor Cardiovascular Exam: Present: regular rate, normal rhythm, normal heart sounds. Absent: systolic murmur, diastolic murmur, rubs, gallop, clicks GI/Abdominal exam: Present: soft, normal bowel sounds. Absent: distended, tenderness, guarding, rebound, rigid Left Knee exam: Present: normal inspection, tenderness (posterior and medial to palpation). Absent: swelling, abrasion, laceration, ecchymosis, deformity Lower Leg exam: Present: normal inspection, tenderness (posterior calf). Absent: erythema, palpable cord, Homans' sign Neurovascular tendon exam: Present: no vascular compromise. Absent: pulse deficit, abnormal cap refill Gait: observed and normal Back exam: Present: normal inspection Neurological exam: Present: alert, oriented X3, CN II-XII intact Psychiatric exam: Present: normal affect, normal mood Skin exam: Present: warm, dry, intact, normal color. Absent: rash Course Vital Signs 12/01/23 12/01/23 11:59 14:13 Temperature 97.7 F 98.1 F Pulse Rate 87 77 Respiratory 16 18 Rate Blood Pressure 146/78 172/76 O2 Sat by Pulse 99 98 Oximetry Medical Decision Making - Medical Decision Making Was pt. sent in by a medical professional or institution (, PA, SERVICE TEAM LEADER, urgent care, hospital, or shelter...) When possible be specific @ -No Did you speak to anyone other than the patient for history (EMS, parent, family, police, friend...)? What history was obtained from this source @ -No Did you review nursing and triage notes (agree or disagree)? Why? @ -I reviewed and agree with nursing and triage notes Were old charts reviewed (outside hosp., previous admission, EMS record, old EKG, old radiological studies, urgent care reports/EKG's, shelter records)? Report findings @ -No old charts were reviewed Differential Diagnosis (chest pain, altered mental status, abdominal pain women, abdominal pain men, vaginal bleeding, weakness, fever, dyspnea, syncope, headache, dizziness, GI bleed, back pain, seizure, CVA, palpatations, mental health, musculoskeletal)? @ -Differential Musculoskeletal Muscular strain, contusion, ligament sprain, fracture, arthritis, septic arthritis, bursitis, cellulitis, muscle spasm, nerve compression, DVT, arterial occlusion, herpes zoster, electrolyte abnormality, tumor.... This is not meant to be in all inclusive list EKG interpreted by me (3pts min.). @ -none X-rays interpreted by me (1pt min.). @ -XR of the left knee reveals no acute trauma, CPPD disease and mild narrowing of the medial compartment and knee. CT interpreted by me (1pt min.). @ -None done U/S interpreted by me (1pt. min.). @ -duplex ultrasound of bilateral lower extremities no evidence for DVT bilaterally. What testing was considered but not performed or refused? (CT, X-rays, U/S, labs)? Why? @ -None What meds were considered but not given or refused? Why? @ -None Did you discuss the management of the patient with other professionals (professionals i.e. , PA, SERVICE TEAM LEADER, lab, RT, psych nurse, social media coordinator, scout sniper, teacher, fisheries technical officer, keycase assembler)? Give summary @ -No Was smoking cessation discussed for >3mins.? @ -No Was critical care preformed (if so, how long)? @ -No Were there social determinants of health that impacted care today? How? (Homelessness, low income, unemployed, alcoholism, drug addiction, transportation, low edu. Level, literacy, decrease access to med. care, [facility], rehab)? @ -No Was there de-escalation of care discussed even if they declined (Discuss DNR or withdrawal of care, Hospice)? DNR status @ -No What co-morbidities impacted this encounter? (DM, HTN, Smoking, COPD, CAD, Cancer, CVA, ARF, Chemo, Hep., AIDS, mental health diagnosis, sleep apnea, morbid obesity)? @ -None Was patient admitted / discharged? Hospital course, mention meds given and route, prescriptions, significant lab abnormalities, going to OR and other pertinent info. @ -Discharged. 83-year-old female with left knee pain and left calf pain. Patient was sent by urgent care to rule out potential blood clot. On examination there are no neurovascular deficits lateral lower extremities. Patient has full range of motion of the left knee however this elicits pain. There are no signs of erythema, edema, or injury to the left lower extremity. Patient will be sent for x-rays and ultrasound and she is provided with pain medication pending results. Patient is in agreement with this plan. Duplex ultrasound of bilateral lower extremities negative for DVT. X-ray concerning for calcium pyrophosphate deposition of the left knee. Patient will be provided with senior loss control specialist referral for further evaluation. Continue supportive treatment at home with Tylenol and rest. All questions answered at bedside and strict return parameters discussed with the patient she is verbalized understanding. Discussed with Dr. Funez Undiagnosed new problem with uncertain prognosis? @ -No Drug Therapy requiring intensive monitoring for toxicity (Heparin, Nitro, Insulin, Cardizem)? @ -No Were any procedures done? @ -No Diagnosis/symptom? @ -left knee pain, left leg pain Acute, or Chronic, or Acute on Chronic? @ -Acute Uncomplicated (without systemic symptoms) or Complicated (systemic symptoms)? @ -uncomplicated Side effects of treatment? @ -No Exacerbation, Progression, or Severe Exacerbation? @ -No Poses a threat to life or bodily function? How? (Chest pain, [place], [place], pneumonia, PE, COPD, DKA, ARF, appy, cholecystitis, CVA, Diverticulitis, Homicidal, Suicidal, threat to staff... and all critical care pts) @ -No Disposition Clinical Impression: Left knee pain, Calcium pyrophosphate deposition disease (CPPD) Disposition: HOME SELF-CARE Condition: Good Instructions (If sedation given, give patient instructions): Knee Pain (ED) Additional Instructions: Return to the emergency department for any new or worsening symptoms. Recommend that you follow-up with orthopedics next week for further evaluation. Is patient prescribed a controlled substance at d/c from ED?: No Referrals: Paul García DO [Primary Care Provider] - 1-2 days Byron Jenkins DO [Doctor of Osteopathic Medicine] - 1-2 days Time of Disposition: 14:01
--- NOTE | 2023-12-01 12:44 | XR ---
Left knee. HISTORY: Pain and swelling for 2 months. COMPARISON: None TECHNIQUE: 3 views left knee were obtained. FINDINGS: There is no fracture, dislocation or focal intraosseous abnormality. There is chondrocalcinosis in both the medial lateral compartment indicating CPPD disease. There is m ild narrowing of the medial compartment. The lateral and patellofemoral compartments are well-maintai baltazar. IMPRESSION: 1. No acute trauma. 2. CPPD disease. 3. Mild narrowing of the medial compartment and knee.
[2023-12-01] MEDS: MORPHINE SULFATE 2 MG/ML SYRINGE IM ONE (12:47)
--- NOTE | 2023-12-01 13:43 | US ---
EXAMINATION TYPE: US venous doppler duplex LE DATE OF EXAM: 12/01/2023 1:35 PM COMPARISON: NONE CLINICAL INDICATION: Female, 83 years old with history of hx bilateral blood clots, pain; pain SIDE PERFORMED: Bilateral TECHNIQUE: The lower extremity deep venous system is examined utilizing real time linear array sonog misti with graded compression, doppler sonography and color-flow sonography. VESSELS IMAGED: Common Femoral Vein Deep Femoral Vein Greater Saphenous Vein * Femoral Vein Popliteal Vein Small Saphenous Vein * Proximal Calf Veins (* superficial vessels) The deep venous systems of both lower extremities from the common femoral veins to the proximal calf veins are patent and compressible with augmentable flow and with normal waveforms. IMPRESSION: No evidence of bilateral lower extremity DVT from the common femoral veins to the proximal calf veins
[2023-12-01 14:16] VITALS: BP 172/76; PULSE 77; RESP 18; TEMP 98.1
== END 2023-12-01 14:16 | disposition home or self-care (01) ==
LOC: EC 11:52
DX: M11.262 Other chondrocalcinosis, left knee (principal); Z87.891 Personal history of nicotine dependence; Z88.6 Allergy status to analgesic agent; Z88.8 Allergy status to other drugs, medicaments and biological substances; Z90.49 Acquired absence of other specified parts of digestive tract
CPT/HCPCS: 73562; 93970; 99284; 96372; J2270

== ENCOUNTER 2024-08-18 15:40 | Emergency (ER) | payer MEDICARE, OTHER ==
[2024-08-18 15:50] VITALS: BP 111/55; PULSE 82; RESP 17; TEMP 98.2
--- NOTE | 2024-08-18 16:17 | ED ---
General Adult HPI - General Chief complaint: Anxiety Stated complaint: Syncopal episode Time Seen by Provider: 08/18/24 15:50 Source: patient, EMS, RN notes reviewed, old records reviewed Mode of arrival: EMS Limitations: no limitations - History of Present Illness Initial comments: This is an 84-year-old female who presents emergency department complaining of being at the store when she started feeling lightheaded according to observer she was breathing really fast and hyperventilating. Patient almost passed out they laid her down on the floor there was no injury. Patient states she still feels tingling in her fingers in her mouth and she does not know why. According to EMS she has a son who is very sick and she already lost 1 son show she is extremely anxious. Patient denies any headache patient denies any weakness. Patient denies any chest pain difficulty breathing shortness of breath. Patient has any recent fever chills or cough. Patient denies abdominal pain patient has nausea vomiting or diarrhea - Related Data Home Medications Medication Instructions Recorded Confirmed lamoTRIgine [LaMICtal] 25 mg PO BID 02/11/20 02/09/23 cilostazoL [Pletal] 100 mg PO BID 07/07/22 02/09/23 lisinopriL [Zestril] 5 mg PO DAILY 07/07/22 02/09/23 DULoxetine HCL [Cymbalta] 30 mg PO BID 02/09/23 02/09/23 Famotidine [Pepcid] 40 mg PO DAILY 02/09/23 02/09/23 LORazepam [Ativan] 0.5 mg PO DAILY PRN 02/09/23 02/09/23 Previous Rx's Medication Instructions Recorded traMADol HCl [Ultram] 50 mg PO Q6HR PRN #4 tab 07/20/22 Cholestyramine (with Sugar) 4 gm PO BID PRN #20 packet 02/09/23 [Cholestyramine Packet] Allergies Allergy/AdvReac Type Severity Reaction Status Date / Time aripiprazole [From Abilify] AdvReac Unknown TREMORS Verified 08/18/24 15:49 NSAIDS (Non-Steroidal AdvReac unable to Verified 08/18/24 15:49 Anti-Inflamma take related to kidney Review of Systems ROS Statement: Those systems with pertinent positive or pertinent negative responses have been documented in the HPI. ROS Other: All systems not noted in ROS Statement are negative. Past Medical History Past Medical History: Osteoarthritis (OA), Pneumonia, Renal Disease Additional Past Medical History / Comment(s): constipation, hx of diverticulitis with bowel resection, 1 kidney removed at 17 yrs old due to infection., anemia, Hemorrhoids History of Any Multi-Drug Resistant Organisms: None Reported Past Surgical History: Bowel Resection, Cholecystectomy, Hysterectomy, Orthopedic Surgery Additional Past Surgical History / Comment(s): left kidney removed as a teen d/t infection. (rib removed with this surgery)., .Low anterior resection for diverticulosis. Partial lt mastectomy but found out it wasn't cancer. 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 Past Psychological History: Anxiety, Bipolar, Depression, Panic Disorder Smoking Status: Former smoker Past Alcohol Use History: None Reported Past Drug Use History: None Reported - Past Family History Father Family Medical History: Cancer Mother Family Medical History: Cancer General Exam - General Exam Comments Initial Comments: GENERAL: Patient is well-developed and well-nourished. Patient is nontoxic and well- hydrated and is in mild distress. ENT: Neck is soft and supple. No significant lymphadenopathy is noted. Oropharynx is clear. Moist mucous membranes. Neck has full range of motion without eliciting any pain. EYES: The sclera were anicteric and conjunctiva were pink and moist. Extraocular movements were intact and pupils were equal round and reactive to light. Eyelids were unremarkable. PULMONARY: Unlabored respirations. Good breath sounds bilaterally. No audible rales r honchi or wheezing was noted. CARDIOVASCULAR: There is a regular rate and rhythm without any murmurs gallops or rubs. ABDOMEN: Soft and nontender with normal bowel sounds. SKIN: Skin is clear with no lesions or rashes and otherwise unremarkable. NEUROLOGIC: Patient is alert and oriented x3. Cranial nerves II through XII are grossly intact. Motor and sensory are also intact. Normal speech, volume and content. Symmetrical smile. MUSCULOSKELETAL: Normal extremities with adequate strength and full range of motion. No lower extremity swelling or edema. No calf tenderness. LYMPHATICS: No significant lymphadenopathy is noted PSYCHIATRIC: Patient is extremely anxious and states her fingers are tingling. Limitations: no limitations Course Vital Signs 08/18/24 15:41 Temperature 98.2 F Pulse Rate 82 Respiratory 17 Rate Blood Pressure 111/55 O2 Sat by Pulse 100 Oximetry Medical Decision Making - Medical Decision Making EKG is interpreted by myself but EKG shows a sinus rhythm at 75 bpm. Of the 146 QRS is 84 QT interval is 4 3 QTc is 432. Patient's EKG shows no ST segment elevation or depression Was pt. sent in by a medical professional or institution (CELINA Marley, BREEDER SERVICE TECHNICIAN, urgent care, hospital, or halfway...) When possible be specific @ -No Did you speak to anyone other than the patient for history (EMS, parent, family, police, friend...)? What history was obtained from this source @ -No Did you review nursing and triage notes (agree or disagree)? Why? @ -I reviewed and agree with nursing and triage notes Were old charts reviewed (outside hosp., previous admission, EMS record, old EKG, old radiological studies, urgent care reports/EKG's, halfway records)? Report findings @ -No old charts were reviewed Differential Diagnosis? @ -Differential Syncope: Valvular disease, hypertrophic cardiomyopathy, pulmonary embolism, tamponade, tachycardia, bradycardia, CT, hypovolemia, hemorrhage, dissection, anemia, intracranial hemorrhage, seizure, hypoglycemia, carbon monoxide poisoning, this is not meant to be an all-inclusive list. EKG interpreted by me (3pts min.). @ -As above X-rays interpreted by me (1pt min.). @ -Chest x-ray shows no acute abnormality CT interpreted by me (1pt min.). @ -None done U/S interpreted by me (1pt. min.). @ -None done What testing was considered but not performed or refused? (CT, X-rays, U/S, labs)? Why? @ -None What meds were considered but not given or refused? Why? @ -None Did you discuss the management of the patient with other professionals (professionals i.e. CELINA Marley, BREEDER SERVICE TECHNICIAN, lab, RT, psych nurse, director social service, extrusion die repairer, teacher, chief privacy officer, caseworker protective services)? Give summary @ -No Was smoking cessation discussed for >3mins.? @ -No Was critical care preformed (if so, how long)? @ -No Were there social determinants of health that impacted care today? How? (Homelessness, low income, unemployed, alcoholism, drug addiction, transportation, low edu. Level, literacy, decrease access to med. care, senior living, rehab)? @ -No Was there de-escalation of care discussed even if they declined (Discuss DNR or withdrawal of care, Hospice)? DNR status @ -No What co-morbidities impacted this encounter? (DM, HTN, Smoking, COPD, CAD, Cancer, CVA, ARF, Chemo, Hep., AIDS, mental health diagnosis, sleep apnea, morbid obesity)? @ -None Was patient admitted / discharged? Hospital course, mention meds given and route, prescriptions, significant lab abnormalities, going to OR and other pertinent info. @ -Patient was extremely anxious she was given 0.5 of Ativan when she came into after lab results came back I spoke with her about those she was much calmer and felt considerably better she no longer had any symptoms. Undiagnosed new problem with uncertain prognosis? @ -No Drug Therapy requiring intensive monitoring for toxicity (Heparin, Nitro, Insulin, Cardizem)? @ -No Were any procedures done? @ -No Diagnosis/symptom? @ -Anxiety Acute, or Chronic, or Acute on Chronic? @ -Acute Uncomplicated (without systemic symptoms) or Complicated (systemic symptoms)? @ -Complicated Side effects of treatment? @ -No Exacerbation, Progression, or Severe Exacerbation? @ -No Poses a threat to life or bodily function? How? (Chest pain, USA, CT, pneumonia, PE, COPD, DKA, ARF, appy, cholecystitis, CVA, Diverticulitis, Homicidal, Suicidal, threat to staff... and all critical care pts) @ -No - Lab Data Result diagrams: 08/18/24 16:10 08/18/24 16:10 Lab Results 08/18/24 08/18/24 08/18/24 Range/Units 16:10 16:10 16:10 WBC 7.24 (4.50-10.00) 10*3/uL RBC 4.48 (4.10-5.20) 10*6/uL Hgb 13.7 (12.0-15.0) g/dL Hct 39.7 (37.2-46.3) % MCV 88.6 (80.0-97.0) fL MCH 30.6 (27.0-32.0) pg MCHC 34.5 (32.0-37.0) g/dL Plt Count 273 (140-440) 10*3/uL MPV 10.5 (9.5-12.2) fL Immature Gran % (Auto) 0.3 % Neutrophils % 67.5 % Lymphocytes % 23.6 % Monocytes % 6.2 % Eosinophils % 1.2 % Basophils % 1.2 % Immature Gran # 0.02 (0.00-0.04) 10*3/uL Neutrophils # 4.88 (1.80-7.70) 10*3/uL Lymphocytes # 1.71 (0.90-5.00) 10*3/uL Monocytes # 0.45 (0.20-1.00) 10*3/uL Eosinophils # 0.09 (0.04-0.35) 10*3/uL Basophils # 0.09 (0.00-0.10) 10*3/uL Manual Slide Review Performed Immature Plt Fraction 2.5 (1.1-6.1) % Sodium 137 (137-145) mmol/L Potassium 4.1 (3.5-5.1) mmol/L Chloride 105 (98-107) mmol/L Carbon Dioxide 19 L (22-30) mmol/L Anion Gap 13 mmol/L BUN 26 H (7-17) mg/dL Creatinine 1.29 H (0.52-1.04) mg/dL Est GFR (CKD-EPI)AfAm 44 (>60 ml/min/1.73 sqM) Est GFR (CKD-EPI)NonAf 38 (>60 ml/min/1.73 sqM) Glucose 124 H (74-99) mg/dL Calcium 10.1 (8.4-10.2) mg/dL Magnesium 1.7 (1.6-2.3) mg/dL Total Bilirubin 1.3 (0.2-1.3) mg/dL AST 28 (14-36) U/L ALT 15 (4-34) U/L Alkaline Phosphatase 97 (38-126) U/L Troponin I <0.012 (0.000-0.034) ng/mL Total Protein 6.9 (6.3-8.2) g/dL Albumin 4.5 (3.5-5.0) g/dL Disposition Clinical Impression: Panic attack Disposition: HOME SELF-CARE Instructions (If sedation given, give patient instructions): Generalized Anxiety Disorder (ED) Is patient prescribed a controlled substance at d/c from ED?: No Referrals: Paul García DO [Primary Care Provider] - 1-2 days Time of Disposition: 17:57
[2024-08-18] MEDS: LORazepam 2 MG/ML INJ IV STA (16:19)
[2024-08-18 16:24] LABS: Basophils # (A) 0.09 10*3/uL (0.00-0.10); Basophils % (A) 1.2 %; Eosinophils # (A) 0.09 10*3/uL (0.04-0.35); Eosinophils % (A) 1.2 %; HCT 39.7 % (37.2-46.3); HGB 13.7 g/dL (12.0-15.0); Immature Platelet Fraction 2.5 % (1.1-6.1); Lymphocytes # (A) 1.71 10*3/uL (0.90-5.00); Lymphocytes % (A) 23.6 %; MCH 30.6 pg (27.0-32.0); MCHC 34.5 g/dL (32.0-37.0); MCV 88.6 fL (80.0-97.0); Mean Platelet Volume 10.5 fL (9.5-12.2); Monocytes # (A) 0.45 10*3/uL (0.20-1.00); Monocytes % (A) 6.2 %; Neutrophils # (A) 4.88 10*3/uL (1.80-7.70); Neutrophils % (A) 67.5 %; RBC 4.48 10*6/uL (4.10-5.20); RDW 13.2 % (11.5-14.5); WBC 7.24 10*3/uL (4.50-10.00)
[2024-08-18 16:34] LABS: ALT 15 U/L (4-34); African American GFR (CKD) 44 (>60 ml/min/1.73 sqM); Albumin 4.5 g/dL (3.5-5.0); Anion Gap 13 mmol/L; Blood Urea Nitrogen 26 mg/dL (7-17); Calcium 10.1 mg/dL (8.4-10.2); Carbon Dioxide 19 mmol/L (22-30); Chloride 105 mmol/L (98-107); Glucose 124 mg/dL (74-99); Non-African American GFR(CKD) 38 (>60 ml/min/1.73 sqM); Sodium 137 mmol/L (137-145); Total Bilirubin 1.3 mg/dL (0.2-1.3); Total Protein 6.9 g/dL (6.3-8.2)
[2024-08-18 16:36] LABS: AST 28 U/L (14-36); Alkaline Phosphatase 97 U/L (38-126); Magnesium 1.7 mg/dL (1.6-2.3); Potassium 4.1 mmol/L (3.5-5.1)
--- NOTE | 2024-08-18 16:45 | XR ---
EXAMINATION TYPE: XR chest 2V DATE OF EXAM: 08/18/2024 4:41 PM COMPARISON: Chest radiographs from 02/09/2023 TECHNIQUE: XR chest 2V Frontal and lateral views of the chest. CLINICAL INDICATION:Female, 84 years old with history of Chest Pain; FINDINGS: Lungs/Pleura: There is no evidence of pleural effusion, focal consolidation, or pneumothorax. Hyperi nflation. Couple stable right midlung calcified granulomas. Pulmonary vascularity: Unremarkable. Heart/mediastinum: Cardiomediastinal silhouette is unremarkable. Atherosclerotic calcifications are seen in the aorta. Musculoskeletal: No acute osseous pathology. IMPRESSION: 1. No acute cardiopulmonary disease/process. 2. COPD changes. [facility], , 08/18/2024 4:42 PM
[2024-08-18 16:48] LABS: Platelet Count 273 10*3/uL (140-440)
== END 2024-08-18 19:00 | disposition home or self-care (01) ==
LOC: EC 15:40
DX: F41.0 Panic disorder [episodic paroxysmal anxiety] (principal); Z87.891 Personal history of nicotine dependence; Z88.6 Allergy status to analgesic agent; Z88.8 Allergy status to other drugs, medicaments and biological substances
CPT/HCPCS: 36415; 93005; 80053; 83735; 84484; 85025; 71046; 99284; 96374; J2060